=== PATIENT | male | born 1955 ===

== ENCOUNTER 2016-08-22 09:09 | Emergency (ER) | payer MEDICARE ==
[2016-03-04 10:45] VITALS: BMI 32.8
[2016-08-23 08:40] LABS: VENOUS BLOOD GAS BASE EXCESS -0.9 mmol/L (0.0-2.0); VENOUS BLOOD GAS PCO2 44 mmHg (40-60); VENOUS BLOOD PH 7.36 (7.32-7.43)
[2016-08-23 09:16] LABS: BLOOD UREA NITROGEN 18 mg/dl (9-20); CALCIUM 9.1 mg/dL (8.4-10.2); CARBON DIOXIDE 21 mmol/L (22-30); CHLORIDE 105 mmol/L (98-107); GFR AFRICAN-AMERICAN > 60; GLUCOSE,RANDOM 87 mg/dL (75-110); SODIUM 136 mmol/l (132-148)
[2016-08-23 09:17] LABS: POTASSIUM 4.5 MMOL/L (3.6-5.0)
[2016-08-23 14:43] LABS: BASO # 0.1 K/uL (0.0-0.2); BASO % 0.9 % (0.0-2.0); EOS # 0.3 K/uL (0.0-0.7); EOS % 2.5 % (0.0-4.0); HEMATOCRIT 40.9 % (35.0-51.0); LYMPH % 16.2 % (20.0-40.0); MEAN CELL VOLUME 90.1 fl (80.0-94.0); MEAN CORPUSCULAR HEMOGLOBIN 30.6 pg (27.0-31.0); MEAN CORPUSCULAR HGB CONC 33.9 g/dL (33.0-37.0); MONO % 8.3 % (0.0-10.0); NEUT # 8.9 K/uL (1.8-7.0); NEUT % 72.1 % (50.0-75.0); RED CELL DISTRIBUTION WIDTH 13.5 % (11.5-14.5); WHITE BLOOD COUNT 12.3 K/uL (4.8-10.8)
== END 2016-08-22 12:54 | disposition home or self-care (01) ==
LOC: H.ER 09:09 → H.EDERROR 09:09
DX: L03.116 Cellulitis of left lower limb (principal)

== ENCOUNTER 2016-12-04 10:53 | Day surgery (SDC) | payer MEDICARE ==
[2016-12-04 11:18] VITALS: BMI 32.8
[2016-12-04 12:07] VITALS: O2SAT 100
--- NOTE | 2016-12-04 12:08 | CP.SDSHP ---
Same Day Surgery H & P - History Proposed Procedure: Single lumen picc placement Pre-Op Diagnosis: Infection - Allergies Allergies: Allergies No Known Allergies Allergy (Verified 12/04/16 11:18) - Physical Exam Vital Signs: Vital Signs 12/04/16 11:22 Temperature 98.2 F Pulse Rate 75 Respiratory 20 Rate Blood Pressure 140/74 O2 Sat by Pulse 98 Oximetry - Impression Impression: Pt with infection referred for picc. Plan single lumen picc placement. Pt. Evaluated Today:Candidate for Anesthesia & Procedure: No Short Stay Discharge - Short Stay Discharge Admitting Diagnosis/Reason for Visit: E11.621/I70.202 CELLULITIS Disposition: REHAB FACILITY/REHAB UNIT Referrals: Jacek Colón DPM [Primary Care Provider] -
--- NOTE | 2016-12-04 12:09 | PCM.SURG1 ---
Surgeon's Initial Post Op Note - Surgeon's Notes Surgeon: Jackson Lopez MD Knitter Hand: NONE Type of Anesthesia: Local Pre-Operative Diagnosis: Infection Operative Findings: Patent right basilic vein Post-Operative Diagnosis: Infection Operation Performed: Single lumen picc placement right basilic vein, 36 cm. Tip in the SVC. Specimen/Specimens Removed: None Estimated Blood Loss: EBL {In ML}: 2 Blood Products Given: N/A Drains Used: No Drains Post-Op Condition: Good Date of Surgery/Procedure: 12/04/16 Time of Surgery/Procedure: 12:05
[2016-12-04 12:35] VITALS: BP 139/69; PULSE 67; RESP 20; TEMP 98
--- NOTE | 2016-12-06 12:01 | VASCULAR ---
PROCEDURE: Date of procedure: 12/04/2016 Procedure: 1. Placement of a right arm PICC with ultrasound and fluoroscopic guidance, CPT 24115 2. PICC tip confirmation with spot radiograph and is in the superior vena cava Medications: 1 percent lidocaine Total Fluoro time: 1.8 seconds Radiation: 0.29 MGy EBL: 2 cc HISTORY: Infection requiring long-term IV antibiotics TECHNIQUE: Following informed consent and procedure time-out, the patient was placed supine on the interventional table and the right arm prepped and draped in the usual sterile fashion. Ultrasound showed a patent and compressible right basilic vein. After the skin was anesthetized with lidocaine, the basilic vein was accessed with micro micropuncture technique using ultrasound guidance. A guidewire was then advanced under fluoroscopic guidance into the superior vena cava. An image documenting ultrasound guidance for vascular access was permanently saved. The length of the single-lumen 4 Czech PICC was trimmed to 36 centimeters and advanced through a peel-away sheath. The PICC was position with tip of PICC confirm a spot radiograph the superior vena cava. The PICC was secured to the patient's skin. The PICC was flushed. A biopatch and sterile dressing was applied. IMPRESSION: Placement of a single-lumen 4 Czech PICC trimmed to 36 centimeters via right basilic vein. The tip of the PICC is confirmed with spot radiograph and is in the superior vena cava.
== END 2016-12-04 14:00 ==
LOC: H.OPSURG 10:53
PROVIDERS: ATTEND Podiatrist Foot & Ankle Surgery
DX: E11.628 Type 2 diabetes mellitus with other skin complications (principal)
CPT/HCPCS: 36569; 76937; 96365; A4310; C1751; J0696

== ENCOUNTER 2017-02-03 14:05 | Emergency (ER) | payer MEDICARE ==
[2017-02-03 14:05] VITALS: BMI 32.1
[2017-02-03 15:07] LABS: BASO # 0.2 K/uL (0.0-0.2); BASO % 1.1 % (0.0-2.0); EOS # 0.1 K/uL (0.0-0.7); EOS % 0.7 % (0.0-4.0); HEMATOCRIT 37.2 % (35.0-51.0); LYMPH # 1.4 K/uL (1.0-4.3); LYMPH % 10.3 % (20.0-40.0); MEAN CELL VOLUME 87.2 fl (80.0-94.0); MEAN CORPUSCULAR HEMOGLOBIN 28.5 pg (27.0-31.0); MEAN CORPUSCULAR HGB CONC 32.7 g/dL (33.0-37.0); MEAN PLATELET VOLUME 8.3 fl (7.2-11.7); MONO # 0.9 K/uL (0.0-0.8); MONO % 6.8 % (0.0-10.0); NEUT # 11.2 K/uL (1.8-7.0); NEUT % 81.1 % (50.0-75.0); RED CELL DISTRIBUTION WIDTH 14.2 % (11.5-14.5); WHITE BLOOD COUNT 13.9 K/uL (4.8-10.8)
[2017-02-03 15:09] LABS: ALKALINE PHOSPHATASE 140 U/L (38-126); ALT/SGPT 38 U/L (21-72); AST/SGOT 29 U/L (17-59); BILIRUBIN,TOTAL 0.6 mg/dl (0.2-1.3); BLOOD UREA NITROGEN 14 mg/dl (9-20); CALCIUM 8.4 mg/dL (8.4-10.2); CARBON DIOXIDE 22 mmol/L (22-30); CHLORIDE 102 mmol/L (98-107); GFR AFRICAN-AMERICAN > 60; GLUCOSE,RANDOM 201 mg/dL (75-110); POTASSIUM 4.1 MMOL/L (3.6-5.0); SODIUM 133 mmol/l (132-148); TOTAL PROTEIN 7.1 G/DL (6.3-8.2)
--- NOTE | 2017-02-03 15:32 | ED PDOC ---
HPI: General Adult Time Seen by Provider: 02/03/17 14:19 Chief Complaint (Nursing): Flu-like Symptoms Chief Complaint (Provider): Cough, bodyaches History Per: Patient History/Exam Limitations: no limitations Onset/Duration Of Symptoms: Days Have you had recent travel within the past 21 days to any of the following countries: [place], [place], [place] or [place]?: No Current Symptoms Are (Timing): Still Present Additional Complaint(s): 61yo male, history of hypertenstion, COPD, CAD, coronary stents, presents to the ED for evaluation of a "wet" cough, loss of appetite and bodyaches present for the past couple days. He reports associated chills at night as well. He denies any fever. Of note, patient reports he quit smoking 1 week ago. No other medical complaints. Past Medical History Reviewed: Historical Data, Nursing Documentation, Vital Signs Vital Signs: Last Vital Signs Temp 100.2 F H 02/03/17 17:33 Pulse 90 02/03/17 17:33 Resp 19 02/03/17 17:33 BP 143/87 02/03/17 17:33 Pulse Ox 100 02/03/17 17:33 - Medical History PMH: CAD, COPD (per old chart but pt denies), Diabetes, HTN, Hypercholesterolemia, Peripheral Edema Denies: Chronic Kidney Disease - Surgical History Surgical History: Coronary Stent (x6) - Family History Family History: States: Unknown Family Hx, Hypertension - Home Medications Home Medications: Ambulatory Orders Medication Instructions Recorded Insulin Glargine,Hum.rec.anlog 26 unit SC HS 08/16/14 [Lantus] Insulin Lispro Mix 75/25 [HumaLOG 20 units SC ACBL 08/16/14 Mix 75/25] Aspirin [Aspirin Chewable] 81 mg PO DAILY #0 chew 09/05/14 Atorvastatin [Lipitor] 40 mg PO HS #0 tab 09/05/14 Carvedilol [Coreg] 3.125 mg PO Q12 #0 tab 09/05/14 Clopidogrel [Plavix] 75 mg PO DAILY #0 tab 09/05/14 Enalapril Maleate [Vasotec] 5 mg PO DAILY #0 tab 09/05/14 Furosemide [Lasix] 40 mg PO DAILY #0 tab 09/05/14 Pregabalin [Lyrica] 75 mg PO DAILY #0 cap 09/05/14 oxyCODONE/Acetaminophen [Percocet 1 tab PO Q6 PRN #12 tab 02/04/16 5/325 mg Tab] Levofloxacin [Levaquin] 500 mg PO DAILY #7 tablet 02/03/17 - Allergies Allergies/Adverse Reactions: Allergies Allergy/AdvReac Type Severity Reaction Status Date / Time No Known Allergies Allergy Verified 02/03/17 14:14 Review of Systems ROS Statement: Except As Marked, All Systems Reviewed And Found Negative Constitutional: Positive for: Chills, Other (boydaches). Negative for: Fever Respiratory: Positive for: Cough, Sputum Gastrointestinal: Positive for: Other (loss of appetite) Physical Exam - Reviewed Nursing Documentation Reviewed: Yes Vital Signs Reviewed: Yes - Physical Exam Appears: Positive for: Non-toxic, No Acute Distress Head Exam: Positive for: ATRAUMATIC, NORMAL INSPECTION, NORMOCEPHALIC Skin: Positive for: Normal Color Eye Exam: Positive for: Normal appearance Neck: Positive for: Supple Cardiovascular/Chest: Positive for: Regular Rate, Rhythm Respiratory: Positive for: Normal Breath Sounds. Negative for: Respiratory Distress Gastrointestinal/Abdominal: Positive for: Soft. Negative for: Tenderness Neurologic/Psych: Positive for: Alert, Oriented. Negative for: Motor/Sensory Deficits - Laboratory Results Result Diagrams: 02/03/17 14:55 02/03/17 14:55 - ECG O2 Sat by Pulse Oximetry: 98 (RA) Pulse Ox Interpretation: Normal Medical Decision Making Medical Decision Making: Time: 14:25 Impression: Cough, bodyaches Plan: -- EKg -- CMp -- Troponin -- CXR Scribe Attestation: Documented by Kaia Valenzuela, acting as a scribe for Lupe Mercado PA-C Provider Scribe Attestation: All medical record entries made by the Scribe were at my direction and personally dictated by me. I have reviewed the chart and agree that the record accurately reflects my personal performance of the history, physical exam, medical decision making, and the department course for this patient. I have also personally directed, reviewed, and agree with the discharge instructions and disposition. Disposition - Clinical Impression Clinical Impression: Cough - Patient ED Disposition Is Patient to be Admitted: No Counseled Patient/Family Regarding: Diagnosis, Need For Followup - Disposition Disposition: Routine/Home Disposition Time: 17:35 Condition: GOOD Prescriptions: Levofloxacin [Levaquin] 500 mg PO DAILY #7 tablet Instructions: Acute Cough (ED) Forms: [employer] (Bulgarian)
--- NOTE | 2017-02-03 16:26 | RAD ---
HISTORY: cough, body aches COMPARISON: 09/04/2014 TECHNIQUE: Chest PA and lateral FINDINGS: LUNGS: No active pulmonary disease. PLEURA: No significant pleural effusion identified. No pneumothorax apparent. CARDIOVASCULAR: No radiographic findings to suggest acute or significant cardiovascular disease. OSSEOUS STRUCTURES: No significant abnormalities. VISUALIZED UPPER ABDOMEN: Normal. OTHER FINDINGS: None. IMPRESSION: No active disease. No significant interval change compared to the prior examination(s). Please note: No preliminary interpretation of this examination rendered by emergency department personnel (Physician and/or PA declined to provide preliminary report of their findings/ observations).
[2017-02-03 16:47] LABS: URINE BACTERIA RARE (<OCC); URINE BILIRUBIN NEGATIVE (NEGATIVE); URINE BLOOD SMALL (NEGATIVE); URINE COLOR YELLOW (YELLOW); URINE GLUCOSE (UA) >=500 mg/dL (Normal); URINE KETONE NEGATIVE (NEGATIVE); URINE LEUKOCYTE ESTERASE NEG Leu/uL (Negative); URINE PROTEIN >=500 mg/dL (NEGATIVE); URINE UROBILINOGEN 0.2-1.0 mg/dL (0.2-1.0); WBC URINE 1 /hpf (0-5)
[2017-02-03 16:48] LABS: RBC URINE 8 /hpf (0-3)
[2017-02-03 17:34] VITALS: BP 143/87; PULSE 90; RESP 19; TEMP 100.2
[2017-02-03 17:37] VITALS: O2SAT 98
--- NOTE | 2017-02-04 11:06 | CARD ---
APPROVED REPORT EKG Measurement Heart [id number] <Conclusion> Sinus rhythm with premature atrial complexes Possible Left atrial enlargement Left axis deviation Right bundle branch block Inferior infarct, age undetermined-not diagnostic Abnormal ECG
== END 2017-02-03 18:06 | disposition home or self-care (01) ==
LOC: H.ER 14:05
DX: R05 Cough (principal); J44.9 Chronic obstructive pulmonary disease, unspecified; E11.9 Type 2 diabetes mellitus without complications; E78.00 Pure hypercholesterolemia, unspecified; I10 Essential (primary) hypertension; I25.10 Atherosclerotic heart disease of native coronary artery without angina pectoris; I49.1 Atrial premature depolarization; I45.10 Unspecified right bundle-branch block; Z79.4 Long term (current) use of insulin; Z79.82 Long term (current) use of aspirin; Z95.5 Presence of coronary angioplasty implant and graft

== ENCOUNTER 2017-03-22 13:18 | Inpatient (IN) | payer MEDICARE ==
[2017-03-22 13:18] VITALS: BMI 32.1
[2017-03-22 15:20] LABS: BASO # 0.1 K/uL (0.0-0.2); BASO % 0.6 % (0.0-2.0); EOS # 0.2 K/uL (0.0-0.7); EOS % 1.3 % (0.0-4.0); HEMATOCRIT 33.7 % (35.0-51.0); LYMPH % 14.7 % (20.0-40.0); MEAN CELL VOLUME 86.5 fl (80.0-94.0); MEAN CORPUSCULAR HEMOGLOBIN 28.5 pg (27.0-31.0); MEAN CORPUSCULAR HGB CONC 32.9 g/dL (33.0-37.0); MEAN PLATELET VOLUME 8.4 fl (7.2-11.7); MONO # 1.1 K/uL (0.0-0.8); MONO % 7.9 % (0.0-10.0); NEUT # 10.4 K/uL (1.8-7.0); NEUT % 75.5 % (50.0-75.0); RED CELL DISTRIBUTION WIDTH 13.9 % (11.5-14.5); WHITE BLOOD COUNT 13.7 K/uL (4.8-10.8)
[2017-03-22 15:36] LABS: BILIRUBIN,TOTAL 0.4 mg/dl (0.2-1.3); CALCIUM 8.5 mg/dL (8.4-10.2); POTASSIUM 4.6 MMOL/L (3.6-5.0); TOTAL PROTEIN 7.3 G/DL (6.3-8.2)
--- NOTE | 2017-03-22 15:43 | ED PDOC ---
Lower Extremity Pain/Injury Time Seen by Provider: 03/22/17 13:46 Chief Complaint (Nursing): Lower Extremity Problem/Injury Chief Complaint (Provider): Left great toe pain, infection History Per: Patient History/Exam Limitations: no limitations Onset/Duration Of Symptoms: Days Current Symptoms Are (Timing): Still Present Severity: Severe Pain Scale Rating Of: 9 Additional Complaint(s): Pt states that he has bad DM and was seen by Dr. Mckeon yesterday for routine visits and evaluation of his feet. Pt states this morning his left toenail came off with some skin. Pt reports increased pain, bleeding and smelly drainage from under great toe. Past Medical History Reviewed: Historical Data, Nursing Documentation, Vital Signs Vital Signs: Last Vital Signs Temp 98.3 F 03/22/17 13:35 Pulse 74 03/22/17 13:35 Resp 16 03/22/17 13:35 BP 136/65 03/22/17 13:35 Pulse Ox 100 03/22/17 13:35 - Medical History PMH: CAD, COPD (per old chart but pt denies), Diabetes, HTN, Hypercholesterolemia, Peripheral Edema Denies: Chronic Kidney Disease - Surgical History Surgical History: Coronary Stent (x6) - Family History Family History: States: Unknown Family Hx, Hypertension - Living Arrangements Living Arrangements: With Family - Social History Current smoker - smoking cessation education provided: No - Home Medications Home Medications: Ambulatory Orders Medication Instructions Recorded Insulin Glargine,Hum.rec.anlog 26 unit SC HS 08/16/14 [Lantus] Insulin Lispro Mix 75/25 [HumaLOG 20 units SC ACBL 08/16/14 Mix 75/25] Aspirin [Aspirin Chewable] 81 mg PO DAILY #0 chew 09/05/14 Atorvastatin [Lipitor] 40 mg PO HS #0 tab 09/05/14 Carvedilol [Coreg] 3.125 mg PO Q12 #0 tab 09/05/14 Clopidogrel [Plavix] 75 mg PO DAILY #0 tab 09/05/14 Enalapril Maleate [Vasotec] 5 mg PO DAILY #0 tab 09/05/14 Furosemide [Lasix] 40 mg PO DAILY #0 tab 09/05/14 Pregabalin [Lyrica] 75 mg PO DAILY #0 cap 09/05/14 oxyCODONE/Acetaminophen [Percocet 1 tab PO Q6 PRN #12 tab 02/04/16 5/325 mg Tab] Levofloxacin [Levaquin] 500 mg PO DAILY #7 tablet 02/03/17 - Allergies Allergies/Adverse Reactions: Allergies Allergy/AdvReac Type Severity Reaction Status Date / Time No Known Allergies Allergy Verified 02/03/17 14:14 Review of Systems ROS Statement: Except As Marked, All Systems Reviewed And Found Negative Constitutional: Negative for: Fever, Chills Physical Exam - Reviewed Nursing Documentation Reviewed: Yes Vital Signs Reviewed: Yes - Physical Exam Appears: Positive for: Well, Non-toxic, No Acute Distress Head Exam: Positive for: ATRAUMATIC, NORMAL INSPECTION, NORMOCEPHALIC Skin: Positive for: Warm. Negative for: Normal Color ((+) yellow purulant drainage from plantar surface of great toe, sloughed off skin with nail avulasion of distal great toe ) Eye Exam: Positive for: Normal appearance ENT: Positive for: Normal ENT Inspection Neck: Positive for: Normal, Painless ROM Cardiovascular/Chest: Positive for: Regular Rate, Rhythm Respiratory: Positive for: CNT, Normal Breath Sounds Gastrointestinal/Abdominal: Positive for: Normal Exam, Bowel Sounds, Soft Back: Positive for: Normal Inspection Extremity: Positive for: Normal ROM Neurologic/Psych: Positive for: Alert, Oriented - Laboratory Results Result Diagrams: 03/22/17 14:56 03/22/17 14:56 - ECG O2 Sat by Pulse Oximetry: 100 Medical Decision Making Medical Decision Making: Elevated WBC. Osteomyolitis on foot x-ray Disposition - Clinical Impression Clinical Impression: Osteomyelitis - Patient ED Disposition Is Patient to be Admitted: Yes - Disposition Disposition Time: 16:27 Condition: STABLE - Pt Status Changed To: Hospital Disposition Of: Inpatient - Admit Certification Admit to Inpatient:: After my assessment, the patient will require hospitalization for at least two midnights. This is because of the severity of symptoms shown, intensity of services needed, and/or the medical risk in this patient being treated as an outpatient. - POA Present On Arrival: None
[2017-03-22] MEDS ORDERED: Sodium Chloride 0.9% 1,000 ML IV STA (16:15)
--- NOTE | 2017-03-22 16:30 | CP.PCM.CON ---
History of Present Illness - History of Present Illness History of Present Illness: Podiatry Consult for Dr. Matthew- 61 y.o male with PMHx of DM, HTN, hypercholesteremia, heart disease presents to the left hallux ulceration. Patient reports swollen, odorous, pale white toe that has been on going for about 9 months now and getting progressively worse. Patient reports 9/10 pain to the left hallux and left lower extremity. He describes the pain as a constant stabbing pain. He reports that yesterday he hit his big toe against the tube which caused him to lose his toe nail He also states that it made his toe red and not pale colored as it normally is. Patient denies n/v/sob/cp/chills/f or d. PMH: DM, HTN, hypercholesteremia, heart disease, 2 heart attacks PSH: multiple stents placement SH: denies drinking alcohol or ilicit drug use; smokes 1 pack a day for 30 years FH: father-DM, from sepsis ALL: NKDA MEDS: see medication list Past Patient History - Infectious Disease Hx of Infectious Diseases: None - Tetanus Immunizations Tetanus Immunization: Unknown - Past Medical History & Family History Past Medical History?: Yes - Past Social History Smoking Status: Light Smoker < 10 Cigarettes Daily - CARDIAC Hx Hypercholesterolemia: Yes Hx Hypertension: Yes Hx Peripheral Edema: Yes - PULMONARY Hx Chronic Obstructive Pulmonary Disease (COPD): Yes (per old chart but pt denies) - NEUROLOGICAL Hx Neurological Disorder: No - HEENT Hx HEENT Problems: No - RENAL Hx Chronic Kidney Disease: No - ENDOCRINE/METABOLIC Hx Endocrine Disorders: Yes Hx Diabetes Mellitus Type 2: Yes - HEMATOLOGICAL/ONCOLOGICAL Hx Blood Disorders: No - INTEGUMENTARY Hx Dermatological Problems: Yes (NON HEALING ULCER LEFT FOOT) Hx Cellulitis: Yes - MUSCULOSKELETAL/RHEUMATOLOGICAL Hx Musculoskeletal Disorders: No Hx Falls: No - GASTROINTESTINAL Hx Gastrointestinal Disorders: No - GENITOURINARY/GYNECOLOGICAL Hx Genitourinary Disorders: No - PSYCHIATRIC Hx Psychophysiologic Disorder: No Hx Emotional Abuse: No Hx Physical Abuse: No Hx Substance Use: No - SURGICAL HISTORY Hx Coronary Stent: Yes (x6) - ANESTHESIA Hx Anesthesia: Yes Hx Anesthesia Reactions: No Hx Malignant Hyperthermia: No Meds Allergies/Adverse Reactions: Allergies Allergy/AdvReac Type Severity Reaction Status Date / Time No Known Allergies Allergy Verified 02/03/17 14:14 - Medications Medications: Current Medications Sodium Chloride (Sodium Chloride 0.9%) 1,000 mls @ 1,000 mls/hr IV .Q1H STA Stop: 03/22/17 17:14 Mupirocin (Bactroban Ointment) 1 applic TOP BID OFELIA Physical Exam - Constitutional Appears: Well, Non-toxic, No Acute Distress - Extremities Exam Additional comments: Vasc: faintly palpable pulses, temperature cool to cool, left hallux cold to touch, non pitting edema to the left foot Ortho: severe pain with palpation to the hallux, able to wiggle toes, unable to perform MM testing secondary to guarding Neuro: gross and protective sensation diminished Derm: hemorrhagic discoloration noted to the distal hallux to the level of IPJ. Linear ulceration noted to plantar hallux at the IPJ measuring approximately 2 cm x .1 x .5. Ulceration probes to bone, sangious drainaged noted from ulceration, malodorous. No streaking, no increase warmth. - Neurological Exam Neurological exam: Alert, Oriented x3 - Psychiatric Exam Psychiatric exam: Normal Affect, Normal Mood Results - Vital Signs Recent Vital Signs: Last Vital Signs Temp 98.3 F 03/22/17 13:35 Pulse 74 03/22/17 13:35 Resp 16 03/22/17 13:35 BP 136/65 03/22/17 13:35 Pulse Ox 100 03/22/17 15:43 - Labs Result Diagrams: 03/22/17 14:56 03/22/17 14:56 Labs: Laboratory Results - last 24 hr 03/22/17 03/22/17 14:56 14:56 WBC 13.7 H RBC 3.89 L Hgb 11.1 L Hct 33.7 L MCV 86.5 MCH 28.5 MCHC 32.9 L RDW 13.9 Plt Count 342 MPV 8.4 Neut % (Auto) 75.5 H Lymph % (Auto) 14.7 L [place] % (Auto) 7.9 Eos % (Auto) 1.3 Baso % (Auto) 0.6 Neut # 10.4 H Lymph # 2.0 [place] # 1.1 H Eos # 0.2 Baso # 0.1 Sodium 129 L Potassium 4.6 Chloride 96 L Carbon Dioxide 24 Anion Gap 14 BUN 41 H Creatinine 1.6 H Est GFR ( Amer) 54 Est GFR (Non-Af Amer) 44 Random Glucose 289 H Calcium 8.5 Total Bilirubin 0.4 AST 20 ALT 35 Alkaline Phosphatase 116 Total Protein 7.3 Albumin 3.7 Globulin 3.7 Albumin/Globulin Ratio 1.0 Assessment & Plan - Assessment and Plan (Free Text) Assessment: 61 y.o male with PMHx of DM, HTN, hypercholesteremia, heart disease with infected left hallux ulceration. Plan: Patient examined and evaluated Charts, labs, vitals reviewed (afebrile, leukocytosis WBC=13.7) Discussed plan in detail with Dr. Matthew X-rays "IMPRESSION: Findings suspicious for gross osteomyelitis affecting the left great toe and 1st metatarsal bone as well as potentially the distal 5th metatarsal bone and multiple digits from 2nd through 5th positions. Follow-up MRI is advised for greater characterization globally." MRI ordered Wound culture taken- pending results Vascular consulted- recommendations appreciated Infectious disease consulted- recommendations appreciated Hallux ulceration cleansed with betadine, and dressed with DSD and kerlix Bactroban ordered for hallux ulceration while in house. Podiatry will continue to follow while one floors Thank you for the consult
[2017-03-22] MEDS ORDERED: Bisacodyl 5mg EC Tab PO PRN (17:01)
--- NOTE | 2017-03-22 17:03 | CP.PCM.HP ---
History of Present Illness - History of Present Illness History of Present Illness: chief complaint foot pain HPI: This is a 61-year-old male with past medical history of chronic foot ulcer , diabetes mellitus, hypertension, CAD with a history of 6 stents, PVD with a total of 10 stents between both lower extremities, presenting to the emergency room for worsening foot pain with his chronic ulcer, the pain is severe, associated with was now likely osteomyelitis and cellulitis. This patient was seen by Dr. Matthew today in the office and was sent to the emergency room. Patient is afebrile,leukocytosis 13.7, hyponatremic sodium 129, BUN 41, creatinine 1.6, baseline creatinine 0.9. Wound cultures and blood cultures are pending, Vanco and Zosyn initiated. x-ray of foot shows osteomyelitis. Cardiology Dr. Burger, podiatry consult Dr. Matthew, infectious disease consult Dr. Roberts. MRI of the foot without contrast per podiatry pending. Review of systems per HPI all other systems reviewed and negative family Past medical and surgical history: chronic foot ulcer, diabetes mellitus, hypertension, CAD with a history of 6 stents, PVD with a total of 10 stents between both lower extremities Family history: Denies Social history: Continues tobacco use approximately one pack per day for 40 years. Denies alcohol or IV drug use Medications as below No known drug allergies Temp Pulse Resp BP Pulse Ox 98.3 F 72 17 120/70 98 03/22/17 13:35 03/22/17 17:39 03/22/17 17:39 03/22/17 17:39 03/22/17 17:39 Physical exam: Constitutional- cooperative, awake, alert. Head- NCAT, PERRL Eye- PERRL, normal accommodation ENT- normal exam, MMM. Neck- normal inspection, supple, no JVD Respiratory- CTAB, no wheezes rales rhonchi Cardiovascular- RRR, +S1, +S2 no MRG GI/Abdominal- normal bowel sounds, soft, no mass, no hsm Skin- warm, dry, left great toe with both cellulitic and necrotic changes. Extremities Exam- normal capillary refill, normal inspection Neurological Exam- alert, stable gait Psych- normal mood, normal affect Most Recent Lab Values WBC 13.7 K/uL (4.8-10.8) H 03/22/17 14:56 RBC 3.89 Mil/uL (4.40-5.90) L 03/22/17 14:56 Hgb 11.1 g/dL (12.0-18.0) L 03/22/17 14:56 Hct 33.7 % (35.0-51.0) L 03/22/17 14:56 MCV 86.5 fl (80.0-94.0) 03/22/17 14:56 MCH 28.5 pg (27.0-31.0) 03/22/17 14:56 MCHC 32.9 g/dL (33.0-37.0) L 03/22/17 14:56 RDW 13.9 % (11.5-14.5) 03/22/17 14:56 Plt Count 342 K/uL (130-400) 03/22/17 14:56 MPV 8.4 fl (7.2-11.7) 03/22/17 14:56 Neut % (Auto) 75.5 % (50.0-75.0) H 03/22/17 14:56 Lymph % (Auto) 14.7 % (20.0-40.0) L 03/22/17 14:56 [place] % (Auto) 7.9 % (0.0-10.0) 03/22/17 14:56 Eos % (Auto) 1.3 % (0.0-4.0) 03/22/17 14:56 Baso % (Auto) 0.6 % (0.0-2.0) 03/22/17 14:56 Neut # 10.4 K/uL (1.8-7.0) H 03/22/17 14:56 Lymph # 2.0 K/uL (1.0-4.3) 03/22/17 14:56 [place] # 1.1 K/uL (0.0-0.8) H 03/22/17 14:56 Eos # 0.2 K/uL (0.0-0.7) 03/22/17 14:56 Baso # 0.1 K/uL (0.0-0.2) 03/22/17 14:56 PT 11.8 Seconds (9.8-13.1) 03/22/17 17:11 INR 1.1 (0.9-1.2) 03/22/17 17:11 APTT 29.7 Seconds (25.6-37.1) 03/22/17 17:11 Sodium 129 mmol/l (132-148) L 03/22/17 14:56 Potassium 4.6 MMOL/L (3.6-5.0) 03/22/17 14:56 Chloride 96 mmol/L (98-107) L 03/22/17 14:56 Carbon Dioxide 24 mmol/L (22-30) 03/22/17 14:56 Anion Gap 14 (10-20) 03/22/17 14:56 BUN 41 mg/dl (9-20) H 03/22/17 14:56 Creatinine 1.6 mg/dl (0.8-1.5) H 03/22/17 14:56 Est GFR ( Amer) 54 03/22/17 14:56 Est GFR (Non-Af Amer) 44 03/22/17 14:56 POC Glucose (mg/dL) 241 mg/dL (65-110) H 03/22/17 17:24 Random Glucose 289 mg/dL (75-110) H 03/22/17 14:56 Calcium 8.5 mg/dL (8.4-10.2) 03/22/17 14:56 Total Bilirubin 0.4 mg/dl (0.2-1.3) 03/22/17 14:56 AST 20 U/L (17-59) 03/22/17 14:56 ALT 35 U/L (21-72) 03/22/17 14:56 Alkaline Phosphatase 116 U/L (38-126) 03/22/17 14:56 Total Protein 7.3 G/DL (6.3-8.2) 03/22/17 14:56 Albumin 3.7 g/dL (3.5-5.0) 03/22/17 14:56 Globulin 3.7 gm/dL (2.2-3.9) 03/22/17 14:56 Albumin/Globulin Ratio 1.0 (1.0-2.1) 03/22/17 14:56 61-year-old male with past medical history of chronic foot ulcer, diabetes mellitus, hypertension, CAD with a history of 6 stents, PVD with a total of 10 stents between both lower extremities, presenting to the emergency room for worsening foot pain with his chronic ulcer, the pain is severe, associated with was now likely osteomyelitis and cellulitis. This patient was seen by Dr. Matthew today in the office and was sent to the emergency room. Patient is afebrile,leukocytosis 13.7, hyponatremic sodium 129, BUN 41, creatinine 1.6, baseline creatinine 0.9. Wound cultures and blood cultures are pending, Vanco and Zosyn initiated. x-ray of foot shows osteomyelitis. Cardiology Dr. Burger, podiatry consult Dr. Matthew, infectious disease consult Dr. Roberts. MRI of the foot without contrast per podiatry pending. Osteomyelitis patient presented with chronic foot ulcer which is now likely osteomyelitis Patient of Dr. Matthew podiatry WBC 13.7, afebrile vancomycin and Zosyn initiated 03/22/[address] Matthew Cardiac consult Dr. Burger Infectious disease consultation Dr. Roberts MRI of foot pending per podiatry blood and wound cultures pending Diabetes mellitus with neuropathy Accu-Cheks and insulin sliding scale continue Lyrica Acute kidney injury Hyponatremia continue normal saline and monitor Hypertension Coronary artery disease Continue aspirin, Plavix, Lipitor, Coreg 3.125 every 12, Lasix 40 daily PVD continue aspirin and Plavix VTE prophylaxis heparin Present on Admission - Present on Admission Any Indicators Present on Admission: No Past Patient History - Infectious Disease Hx of Infectious Diseases: None - Tetanus Immunizations Tetanus Immunization: Unknown - Past Medical History & Family History Past Medical History?: Yes - Past Social History Smoking Status: Light Smoker < 10 Cigarettes Daily - CARDIAC Hx Hypercholesterolemia: Yes Hx Hypertension: Yes Hx Peripheral Edema: Yes - PULMONARY Hx Chronic Obstructive Pulmonary Disease (COPD): Yes (per old chart but pt denies) - NEUROLOGICAL Hx Neurological Disorder: No - HEENT Hx HEENT Problems: No - RENAL Hx Chronic Kidney Disease: No - ENDOCRINE/METABOLIC Hx Endocrine Disorders: Yes Hx Diabetes Mellitus Type 2: Yes - HEMATOLOGICAL/ONCOLOGICAL Hx Blood Disorders: No - INTEGUMENTARY Hx Dermatological Problems: Yes (NON HEALING ULCER LEFT FOOT) Hx Cellulitis: Yes - MUSCULOSKELETAL/RHEUMATOLOGICAL Hx Musculoskeletal Disorders: No Hx Falls: No - GASTROINTESTINAL Hx Gastrointestinal Disorders: No - GENITOURINARY/GYNECOLOGICAL Hx Genitourinary Disorders: No - PSYCHIATRIC Hx Psychophysiologic Disorder: No Hx Emotional Abuse: No Hx Physical Abuse: No Hx Substance Use: No - SURGICAL HISTORY Hx Coronary Stent: Yes (x6) - ANESTHESIA Hx Anesthesia: Yes Hx Anesthesia Reactions: No Hx Malignant Hyperthermia: No Meds Allergies/Adverse Reactions: Allergies Allergy/AdvReac Type Severity Reaction Status Date / Time No Known Allergies Allergy Verified 02/03/17 14:14 Results - Vital Signs Recent Vital Signs: Last Vital Signs Temp 98.3 F 03/22/17 13:35 Pulse 74 03/22/17 13:35 Resp 16 03/22/17 13:35 BP 136/65 03/22/17 13:35 Pulse Ox 100 03/22/17 15:43 - Labs Result Diagrams: 03/22/17 14:56 03/22/17 14:56 Labs: Laboratory Results - last 24 hr 03/22/17 03/22/17 14:56 14:56 WBC 13.7 H RBC 3.89 L Hgb 11.1 L Hct 33.7 L MCV 86.5 MCH 28.5 MCHC 32.9 L RDW 13.9 Plt Count 342 MPV 8.4 Neut % (Auto) 75.5 H Lymph % (Auto) 14.7 L [place] % (Auto) 7.9 Eos % (Auto) 1.3 Baso % (Auto) 0.6 Neut # 10.4 H Lymph # 2.0 [place] # 1.1 H Eos # 0.2 Baso # 0.1 Sodium 129 L Potassium 4.6 Chloride 96 L Carbon Dioxide 24 Anion Gap 14 BUN 41 H Creatinine 1.6 H Est GFR ( Amer) 54 Est GFR (Non-Af Amer) 44 Random Glucose 289 H Calcium 8.5 Total Bilirubin 0.4 AST 20 ALT 35 Alkaline Phosphatase 116 Total Protein 7.3 Albumin 3.7 Globulin 3.7 Albumin/Globulin Ratio 1.0
[2017-03-22 17:23] LABS: PARTIAL THROMBOPLASTIN TIME 29.7 Seconds (25.6-37.1)
[2017-03-22] MEDS: Sodium Chloride 0.9% 1,000 ML IV SCH (17:29)
[2017-03-22] MEDS ORDERED: Insulin Regular 100 units/ml SC ONE (18:10)
[2017-03-22 18:16] LABS: VENOUS BLOOD GAS BASE EXCESS 0.7 mmol/L (0.0-2.0); VENOUS BLOOD GAS PCO2 52 mmHg (40-60); VENOUS BLOOD PH 7.33 (7.32-7.43)
--- NOTE | 2017-03-22 18:27 | RAD ---
PROCEDURE: Left Foot Radiographs. HISTORY: great toe infection COMPARISON: None. FINDINGS: BONES: Destructive lesions create lucencies surrounding the 1st metatarsophalangeal joint as compared prior left foot radiographs dated 09/14/2016. In addition, destructive lucency affects the 1st digit distal phalanx with a tiny lucency at the proximal phalangeal cortex related to the interphalangeal joint as well. Given these findings, pattern is suspicious for osteomyelitis. Prominent soft tissue edema seen throughout the great toe as well as the majority digits of the left foot as well. Follow-up MRI is advised to evaluate potential lucencies in the 2nd through 5th digits in the 5th metatarsal bone distally. JOINTS: Degenerative osteoarthritis is seen throughout the left foot comprised primarily of cortical sclerosis throughout the articular surfaces diffusely. No subluxation or dislocation. SOFT TISSUES: As above. No emphysema soft tissue changes noted. OTHER FINDINGS: None. IMPRESSION: Findings suspicious for gross osteomyelitis affecting the left great toe and 1st metatarsal bone as well as potentially the distal 5th metatarsal bone and multiple digits from 2nd through 5th positions. Follow-up MRI is advised for greater characterization globally.
[2017-03-22] MEDS: Piperacillin/Tazobact 3.375 GM in Sodium Chloride 0.9% 100 ML IVPB SCH (19:45)
[2017-03-22] MEDS: Insulin Lispro (humaLOG) 100 Units/ml Inj SC SCH (22:17)
[2017-03-22] MEDS: Oxycodone/Acetaminophen 5/325 mg Tab PO PRN (23:16)
[2017-03-23] MEDS ORDERED: Oxycodone/Acetaminophen 5/325 mg Tab PO ONE (00:38)
[2017-03-23] MEDS: Piperacillin/Tazobact 3.375 GM in Sodium Chloride 0.9% 100 ML IVPB SCH ×3 (01:13→17:18)
[2017-03-23] MEDS: Ammonium Lactate 12% Cream (140 g) TOP SCH ×3 (01:14→17:07)
[2017-03-23] MEDS: Sodium Chloride 0.9% 1,000 ML IV SCH (03:15)
[2017-03-23 07:23] LABS: BASO # 0.1 K/uL (0.0-0.2); BASO % 0.8 % (0.0-2.0); EOS # 0.4 K/uL (0.0-0.7); EOS % 3.6 % (0.0-4.0); HEMATOCRIT 34.6 % (35.0-51.0); LYMPH # 2.1 K/uL (1.0-4.3); LYMPH % 17.8 % (20.0-40.0); MEAN CELL VOLUME 86.4 fl (80.0-94.0); MEAN CORPUSCULAR HEMOGLOBIN 28.5 pg (27.0-31.0); MEAN PLATELET VOLUME 8.2 fl (7.2-11.7); MONO % 8.3 % (0.0-10.0); NEUT # 8.2 K/uL (1.8-7.0); NEUT % 69.5 % (50.0-75.0); RED CELL DISTRIBUTION WIDTH 14.1 % (11.5-14.5); WHITE BLOOD COUNT 11.8 K/uL (4.8-10.8)
[2017-03-23] MEDS: Insulin Lispro (humaLOG) 100 Units/ml Inj SC SCH ×4 (07:30→22:53)
[2017-03-23 07:49] LABS: CALCIUM 8.6 mg/dL (8.4-10.2); POTASSIUM 4.2 MMOL/L (3.6-5.0)
--- NOTE | 2017-03-23 13:13 | CP.PCM.CON ---
History of Present Illness - History of Present Illness History of Present Illness: 61 y.o male presents with left hallux ulceration. Patient reports swollen, odorous, pale toe that has been on going for about 9 months now and getting progressively worse. Patient reports 9/10 pain to the left hallux and left lower extremity. He describes the pain as a constant stabbing pain. Had vascular procedure recently admitted to r/o PMH: DM, HTN, hypercholesteremia, heart disease, 2 heart attacks PSH: multiple stents placement SH: denies drinking alcohol or ilicit drug use; smokes 1 pack a day for 30 years FH: father-DM, from sepsis ALL: NKDA MEDS: see medication list Review of Systems - Constitutional Constitutional: As Per HPI - EENT Eyes: absent: As Per HPI, Blind Spots, Blurred Vision, Change in Vision, Decreased Night Vision, Diplopia, Discharge, Dry Eye, Exophthalmos, Floaters, Irritation, Itchy Eyes, Loss of Peripheral Vision, Pain, Photophobia, Requires Corrective Lenses, Sees Flashes, Spots in Vision, Tunnel Vision, Other Visual Disturbances, Loss of Vision, Other Ears: absent: As Per HPI, Decreased Hearing, Ear Discharge, Ear Pain, Tinnitus, Abnormal Hearing, Disequilibrium, Dizziness, Other Nose/Mouth/Throat: absent: As Per HPI, Epistaxis, Nasal Congestion, Nasal Discharge, Nasal Obstruction, Nasal Trauma, Nose Pain, Post Nasal Drip, Sinus Pain, Sinus Pressure, Bleeding Gums, Change in Voice, Dental Pain, Dry Mouth, Dysphagia, Halitosis, Hoarsness, Lip Swelling, Mouth Lesions, Mouth Pain, Odynophagia, Sore Throat, Throat Swelling, Tongue Swelling, Facial Pain, Neck Pain, Neck Mass, Other - Cardiovascular Cardiovascular: As Per HPI - Respiratory Respiratory: absent: As Per HPI, Cough, Dyspnea, Hemoptysis, Dyspnea on Exertion , Wheezing, Snoring, Stridor, Pain on Inspiration, Chest Congestion, Excessive Mucous Production, Change in Mucous Color, Pain with Coughing, Other - Gastrointestinal Gastrointestinal: absent: As Per HPI, Abdominal Pain, Belching, Bloating, Change in Bowel Habits, Change in Stool Character, Coffee Ground Emesis, Constipation, Cramping, Diarrhea, Dyspepsia, Dysphagia, Early Satiety, Excessive Flatus, Fecal Incontinence, Heartburn, Hematemesis, Hematochezia, Loose Stools, Melena, Nausea, Odynophagia, Temesmus, Vomiting, Other - Genitourinary Genitourinary: absent: As Per HPI, Change in Urinary Stream, Difficulty Urinating, Dysuria, Flank Pain, Hematuria, Pyuria, Nocturia, Urinary Incontinence, Urinary Frequency, Urinary Hesitance, Urinary Urgency, Voiding Freq/Small Amts, Freq UTI, Hx Renal/Bladder Calculi, Hx /Renal Surgery, Bladder Distension, Other - Musculoskeletal Musculoskeletal: As Per HPI - Integumentary Integumentary: As Per HPI, Skin Pain, Wounds - Neurological Neurological: As Per HPI - Psychiatric Psychiatric: absent: As Per HPI, Abnormal Sleep Pattern, Anhedonia, Anxiety, Auditory Hallucinations, Behavioral Changes, Change in Appetite, Change in Libido, Confusion, Depression, Difficulty Concentrating, Hallucinations, Homicidal Ideation, Hopelessness, Irritability, Memory Loss, Mood Swings, Panic Attacks, Paranoia, Suicidal Ideation, Visual Hallucinations, Tactile Hallucinations, Other - Endocrine Endocrine: absent: As Per HPI, Change in Body Appearance, Change in Libido, Cold Intolorance, Deepening of Voice, Excessive Sweating, Fatigue, Flushing, Heat Intolorance, Increase in Ring/Shoe/Hat Size, Palpitations, Polydipsia, Polyphagia, Polyuria, Other - Hematologic/Lymphatic Hematologic: absent: As Per HPI, Easy Bleeding, Easy Bruising, Lymphadenopathy, Other Past Patient History - Infectious Disease Hx of Infectious Diseases: None - Tetanus Immunizations Tetanus Immunization: Unknown - Past Medical History & Family History Past Medical History?: Yes - Past Social History Smoking Status: Light Smoker < 10 Cigarettes Daily - CARDIAC Hx Hypercholesterolemia: Yes Hx Hypertension: Yes Hx Peripheral Edema: Yes - PULMONARY Hx Chronic Obstructive Pulmonary Disease (COPD): Yes (per old chart but pt denies) - NEUROLOGICAL Hx Neurological Disorder: No - HEENT Hx HEENT Problems: No - RENAL Hx Chronic Kidney Disease: No - ENDOCRINE/METABOLIC Hx Endocrine Disorders: Yes Hx Diabetes Mellitus Type 2: Yes - HEMATOLOGICAL/ONCOLOGICAL Hx Blood Disorders: No - INTEGUMENTARY Hx Dermatological Problems: Yes (NON HEALING ULCER LEFT FOOT) Hx Cellulitis: Yes - MUSCULOSKELETAL/RHEUMATOLOGICAL Hx Musculoskeletal Disorders: No Hx Falls: No - GASTROINTESTINAL Hx Gastrointestinal Disorders: No - GENITOURINARY/GYNECOLOGICAL Hx Genitourinary Disorders: No - PSYCHIATRIC Hx Psychophysiologic Disorder: No Hx Emotional Abuse: No Hx Physical Abuse: No Hx Substance Use: No - SURGICAL HISTORY Hx Coronary Stent: Yes (x6) - ANESTHESIA Hx Anesthesia: Yes Hx Anesthesia Reactions: No Hx Malignant Hyperthermia: No Meds Allergies/Adverse Reactions: Allergies Allergy/AdvReac Type Severity Reaction Status Date / Time No Known Allergies Allergy Verified 02/03/17 14:14 - Medications Medications: Current Medications Acetaminophen (Tylenol 325mg Tab) 650 mg PO Q6 PRN PRN Reason: Fever >100.4 F Aspirin (Aspirin Chewable) 81 mg PO DAILY [facility] Last Admin: 03/23/17 09:19 Dose: 81 mg Atorvastatin Calcium (Lipitor) 40 mg PO HS [facility] Last Admin: 03/22/17 21:41 Dose: 40 mg Bisacodyl (Dulcolax) 10 mg PO DAILY PRN PRN Reason: Constipation Carvedilol (Coreg) 3.125 mg PO Q12 [facility] Last Admin: 03/23/17 09:18 Dose: 3.125 mg Clopidogrel Bisulfate (Plavix) 75 mg PO DAILY [facility] Last Admin: 03/23/17 09:20 Dose: 75 mg Docusate Sodium (Colace) 100 mg PO BID [facility] Last Admin: 03/23/17 09:19 Dose: 100 mg Enalapril Maleate (Vasotec) 5 mg PO DAILY [facility] Last Admin: 03/23/17 09:18 Dose: 5 mg Furosemide (Lasix) 40 mg PO DAILY [facility] Last Admin: 03/23/17 09:19 Dose: 40 mg Heparin Sodium (Porcine) (Heparin) 5,000 units SC Q8 [facility] PRN Reason: Protocol Last Admin: 03/23/17 09:19 Dose: 5,000 units Sodium Chloride (Sodium Chloride 0.9%) 1,000 mls @ 100 mls/hr IV .Q10H [facility] Last Admin: 03/23/17 03:15 Dose: Not Given Vancomycin HCl 1,000 mg/ (Sodium Chloride) 250 mls @ 250 mls/hr IVPB Q12H [facility] PRN Reason: Protocol Last Admin: 03/23/17 04:58 Dose: 250 mls/hr Piperacillin Sod/Tazobactam (Sod 3.375 gm/ Sodium Chloride) 100 mls @ 100 mls/ hr IVPB Q8 [facility] PRN Reason: Protocol Last Admin: 03/23/17 01:13 Dose: 100 mls/hr Insulin Human Lispro (Humalog) 0 units SC ACHS [facility] PRN Reason: Protocol Last Admin: 03/23/17 07:30 Dose: 3 units Lactic Acid (Lac-Hydrin 12% Cream (140 G)) 1 ea TOP BID [facility] Last Admin: 03/23/17 09:21 Dose: 1 ea Mupirocin (Bactroban Ointment) 1 applic TOP BID [facility] Last Admin: 03/23/17 09:21 Dose: 1 dose Oxycodone/Acetaminophen (Percocet 5/325 Mg Tab) 1 tab PO Q4 PRN PRN Reason: Pain, severe (8-10) Stop: 03/25/17 17:02 Last Admin: 03/22/17 23:16 Dose: 1 tab Pregabalin (Lyrica) 75 mg PO DAILY [facility] Last Admin: 03/23/17 09:25 Dose: 75 mg Physical Exam - Constitutional Appears: Non-toxic, Chronically Ill - Head Exam Head Exam: NORMOCEPHALIC - Eye Exam Eye Exam: PERRL. absent: Scleral icterus - ENT Exam ENT Exam: Mucous Membranes Dry, Normal External Ear Exam, Normal Oropharynx - Neck Exam Neck exam: Negative for: Lymphadenopathy, Thyromegaly - Respiratory Exam Respiratory Exam: Decreased Breath Sounds, Clear to Auscultation Bilateral - Cardiovascular Exam Cardiovascular Exam: REGULAR RHYTHM, +S1, +S2 - GI/Abdominal Exam GI & Abdominal Exam: Diminished Bowel Sounds, Soft. absent: Tenderness - Rectal Exam Rectal Exam: Deferred - Exam Exam: NORMAL INSPECTION - Extremities Exam Extremities exam: Positive for: pedal edema, tenderness. Negative for: calf tenderness, pedal pulses present Additional comments: necrotic left hallux with ulcer at the base - Back Exam Back exam: absent: CVA tenderness (L), CVA tenderness (R) - Neurological Exam Neurological exam: Alert, CN II-XII Intact, Oriented x3, Reflexes Normal - Psychiatric Exam Psychiatric exam: Depressed - Skin Skin Exam: Dry Results - Vital Signs Recent Vital Signs: Last Vital Signs Temp 98.3 F 03/23/17 08:17 Pulse 74 03/23/17 08:17 Resp 20 03/23/17 08:17 BP 128/73 03/23/17 09:19 Pulse Ox 98 03/23/17 08:17 - Labs Result Diagrams: 03/23/17 07:14 03/23/17 07:14 Labs: Laboratory Results - last 24 hr 03/22/17 03/22/17 03/22/17 14:56 14:56 16:56 WBC 13.7 H RBC 3.89 L Hgb 11.1 L Hct 33.7 L MCV 86.5 MCH 28.5 MCHC 32.9 L RDW 13.9 Plt Count 342 MPV 8.4 Neut % (Auto) 75.5 H Lymph % (Auto) 14.7 L [place] % (Auto) 7.9 Eos % (Auto) 1.3 Baso % (Auto) 0.6 Neut # 10.4 H Lymph # 2.0 [place] # 1.1 H Eos # 0.2 Baso # 0.1 PT INR APTT pO2 11 L VBG pH 7.33 VBG pCO2 52 VBG HCO3 23.5 VBG Total CO2 29.0 H VBG O2 Sat (Calc) 16.6 L VBG Base Excess 0.7 VBG Potassium 4.0 Glucose 273 H Lactate 0.6 L FiO2 21.0 Sodium 129 L 130.0 L Potassium 4.6 Chloride 96 L 98.0 Carbon Dioxide 24 Anion Gap 14 BUN 41 H Creatinine 1.6 H Est GFR ( Amer) 54 Est GFR (Non-Af Amer) 44 POC Glucose (mg/dL) Random Glucose 289 H Calcium 8.5 Total Bilirubin 0.4 AST 20 ALT 35 Alkaline Phosphatase 116 Total Protein 7.3 Albumin 3.7 Globulin 3.7 Albumin/Globulin Ratio 1.0 Venous Blood Potassium 4.0 03/22/17 03/22/17 03/22/17 17:11 17:24 21:59 WBC RBC Hgb Hct MCV MCH MCHC RDW Plt Count MPV Neut % (Auto) Lymph % (Auto) [place] % (Auto) Eos % (Auto) Baso % (Auto) Neut # Lymph # [place] # Eos # Baso # PT 11.8 INR 1.1 APTT 29.7 pO2 VBG pH VBG pCO2 VBG HCO3 VBG Total CO2 VBG O2 Sat (Calc) VBG Base Excess VBG Potassium Glucose Lactate FiO2 Sodium Potassium Chloride Carbon Dioxide Anion Gap BUN Creatinine Est GFR ( Amer) Est GFR (Non-Af Amer) POC Glucose (mg/dL) 241 H 285 H Random Glucose Calcium Total Bilirubin AST ALT Alkaline Phosphatase Total Protein Albumin Globulin Albumin/Globulin Ratio Venous Blood Potassium 03/23/17 03/23/17 03/23/17 05:27 07:14 07:14 WBC 11.8 H RBC 4.00 L Hgb 11.4 L Hct 34.6 L MCV 86.4 MCH 28.5 MCHC 33.0 RDW 14.1 Plt Count 354 MPV 8.2 Neut % (Auto) 69.5 Lymph % (Auto) 17.8 L [place] % (Auto) 8.3 Eos % (Auto) 3.6 Baso % (Auto) 0.8 Neut # 8.2 H Lymph # 2.1 [place] # 1.0 H Eos # 0.4 Baso # 0.1 PT INR APTT pO2 VBG pH VBG pCO2 VBG HCO3 VBG Total CO2 VBG O2 Sat (Calc) VBG Base Excess VBG Potassium Glucose Lactate FiO2 Sodium 129 L Potassium 4.2 Chloride 97 L Carbon Dioxide 29 Anion Gap 7 L BUN 39 H Creatinine 1.5 Est GFR ( Amer) 58 Est GFR (Non-Af Amer) 48 POC Glucose (mg/dL) 281 H Random Glucose 321 H Calcium 8.6 Total Bilirubin AST ALT Alkaline Phosphatase Total Protein Albumin Globulin Albumin/Globulin Ratio Venous Blood Potassium 03/23/17 10:43 WBC RBC Hgb Hct MCV MCH MCHC RDW Plt Count MPV Neut % (Auto) Lymph % (Auto) [place] % (Auto) Eos % (Auto) Baso % (Auto) Neut # Lymph # [place] # Eos # Baso # PT INR APTT pO2 VBG pH VBG pCO2 VBG HCO3 VBG Total CO2 VBG O2 Sat (Calc) VBG Base Excess VBG Potassium Glucose Lactate FiO2 Sodium Potassium Chloride Carbon Dioxide Anion Gap BUN Creatinine Est GFR ( Amer) Est GFR (Non-Af Amer) POC Glucose (mg/dL) 285 H Random Glucose Calcium Total Bilirubin AST ALT Alkaline Phosphatase Total Protein Albumin Globulin Albumin/Globulin Ratio Venous Blood Potassium Assessment & Plan (1) Osteomyelitis Status: Acute (2) Cellulitis Status: Acute (3) Chronic foot ulcer Status: Acute Priority: High (4) Diabetes 1.5, managed as type 2 Status: Acute Priority: High (5) Diabetic neuropathy Status: Acute Priority: High (6) Obesity (BMI 30-39.9) Status: Acute (7) PVD (peripheral vascular disease) Status: Acute Priority: High (8) Peripheral arterial disease Status: Acute (9) Pneumonia Status: Acute - Assessment and Plan (Free Text) Assessment: necrotic great toe may need amputation/ ray resection vascular re-eval warrented iv antibiotics ordered
[2017-03-23] MEDS ORDERED: Insulin Lispro Mix 75/25 100 units/ml (HumaLog) 10ml SC SCH (15:15)
--- NOTE | 2017-03-23 15:15 | CP.PCM.PN ---
Subjective - Date & Time of Evaluation Date of Evaluation: 03/23/17 Time of Evaluation: 11:00 - Subjective Subjective: Patient seen and examined bedside. Feeling better. Still with pain to left great toe.Hemodynamically stable, afebrile. No acute issues overnight. Objective - Vital Signs/Intake and Output Vital Signs (last 24 hours): Temp Pulse Resp BP Pulse Ox 98.3 F 74 20 128/73 98 03/23/17 08:17 03/23/17 08:17 03/23/17 08:17 03/23/17 09:19 03/23/17 08:17 - Medications Medications: Current Medications Acetaminophen (Tylenol 325mg Tab) 650 mg PO Q6 PRN PRN Reason: Fever >100.4 F Aspirin (Aspirin Chewable) 81 mg PO DAILY [facility] Last Admin: 03/23/17 09:19 Dose: 81 mg Atorvastatin Calcium (Lipitor) 40 mg PO HS [facility] Last Admin: 03/22/17 21:41 Dose: 40 mg Bisacodyl (Dulcolax) 10 mg PO DAILY PRN PRN Reason: Constipation Carvedilol (Coreg) 3.125 mg PO Q12 [facility] Last Admin: 03/23/17 09:18 Dose: 3.125 mg Clopidogrel Bisulfate (Plavix) 75 mg PO DAILY [facility] Last Admin: 03/23/17 09:20 Dose: 75 mg Docusate Sodium (Colace) 100 mg PO BID [facility] Last Admin: 03/23/17 09:19 Dose: 100 mg Enalapril Maleate (Vasotec) 5 mg PO DAILY [facility] Last Admin: 03/23/17 09:18 Dose: 5 mg Furosemide (Lasix) 40 mg PO DAILY [facility] Last Admin: 03/23/17 09:19 Dose: 40 mg Heparin Sodium (Porcine) (Heparin) 5,000 units SC Q8 [facility] PRN Reason: Protocol Last Admin: 03/23/17 09:19 Dose: 5,000 units Sodium Chloride (Sodium Chloride 0.9%) 1,000 mls @ 100 mls/hr IV .Q10H [facility] Last Admin: 03/23/17 03:15 Dose: Not Given Vancomycin HCl 1,000 mg/ (Sodium Chloride) 250 mls @ 250 mls/hr IVPB Q12H [facility] PRN Reason: Protocol Last Admin: 03/23/17 04:58 Dose: 250 mls/hr Piperacillin Sod/Tazobactam (Sod 3.375 gm/ Sodium Chloride) 100 mls @ 100 mls/ hr IVPB Q8 [facility] PRN Reason: Protocol Last Admin: 03/23/17 10:00 Dose: 100 mls/hr Insulin Detemir (Levemir) 26 units SC HS [facility] Insulin Human Lispro (Humalog) 0 units SC ACHS [facility] PRN Reason: Protocol Last Admin: 03/23/17 14:55 Dose: 3 units Insulin Lispro Protam/Lispro Human (Humalog Mix 75/25) 20 units SC ACBL [facility] Lactic Acid (Lac-Hydrin 12% Cream (140 G)) 1 ea TOP BID [facility] Last Admin: 03/23/17 09:21 Dose: 1 ea Mupirocin (Bactroban Ointment) 1 applic TOP BID [facility] Last Admin: 03/23/17 09:21 Dose: 1 dose Oxycodone/Acetaminophen (Percocet 5/325 Mg Tab) 1 tab PO Q4 PRN PRN Reason: Pain, severe (8-10) Stop: 03/25/17 17:02 Last Admin: 03/22/17 23:16 Dose: 1 tab Pregabalin (Lyrica) 75 mg PO DAILY [facility] Last Admin: 03/23/17 09:25 Dose: 75 mg - Labs Labs: 03/23/17 07:14 03/23/17 07:14 PT 11.8 Seconds (9.8-13.1) 03/22/17 17:11 INR 1.1 (0.9-1.2) 03/22/17 17:11 APTT 29.7 Seconds (25.6-37.1) 03/22/17 17:11 - Constitutional Appears: Non-toxic, No Acute Distress - Head Exam Head Exam: ATRAUMATIC, NORMAL INSPECTION, NORMOCEPHALIC - Eye Exam Eye Exam: EOMI, Normal appearance, PERRL Pupil Exam: NORMAL ACCOMODATION - ENT Exam ENT Exam: Mucous Membranes Moist, Normal Exam - Neck Exam Neck Exam: Full ROM, Normal Inspection - Respiratory Exam Respiratory Exam: Clear to Ausculation Bilateral, NORMAL BREATHING PATTERN. absent: Rales, Rhonchi, Wheezes - Cardiovascular Exam Cardiovascular Exam: REGULAR RHYTHM, RRR, +S1, +S2. absent: JVD - GI/Abdominal Exam GI & Abdominal Exam: Soft, Normal Bowel Sounds. absent: Distended, Guarding, Tenderness, Rebound - Rectal Exam Rectal Exam: Deferred - Extremities Exam Extremities Exam: Full ROM. absent: Pedal Edema Additional comments: left great toe distal portion necrotic - Neurological Exam Neurological Exam: Alert, Awake, CN II-XII Intact - Psychiatric Exam Psychiatric exam: Normal Affect, Normal Mood - Skin Skin Exam: Dry, Warm Assessment and Plan - Assessment and Plan (Free Text) Assessment: 61-year-old male with past medical history of chronic foot ulcer, diabetes mellitus, hypertension, CAD with a history of 6 stents, PVD with a total of 10 stents between both lower extremities, presenting to the emergency room for worsening foot pain with his chronic ulcer, the pain is severe.Patient was seen by Dr. Matthew in the office and was sent to the emergency room. Patient is afebrile,leukocytosis 13.7, hyponatremic sodium 129, BUN 41, creatinine 1.6, baseline creatinine 0.9. Wound cultures and blood cultures are pending, Vanco and Zosyn initiated. x-ray of foot shows suspected osteomyelitis. Cardiology Dr. Burger, podiatry consult Dr. Matthew, infectious disease consult Dr. Roberts. MRI of the foot without contrast per podiatry pending. 1. Suspected left hallux Osteomyelitis Xray showed ;suspicious gross osteomyelitis affecting the left great toe and 1st metatarsal bone as well as potentially the distal 5th metatarsal bone and multiple digits from 2nd through 5th positions podiatry ,ID and cardiology consulted WBC 11.8 afebrile continue vancomycin and Zosyn initiated 03/22/17 follow up MRI of the foot Follow up cultures 2. Diabetes mellitus with neuropathy uncontrolled Accu-Cheks and insulin sliding scale continue Lyrica resume levemir 26 units SQ HS and humalog AC breakfast 3.Acute kidney injury continue normal saline and monitor Cr improving from 1.6--1.5 4.Hypertension controlled continue home meds 5.Coronary artery disease history of [address] Burger, consulted for possible preop clearance Continue aspirin, Plavix, Lipitor, Coreg 3.125 every 12, Lasix 40 daily 6. Hyponatremia Most likely volume depletion continue IVF 7.PVD continue aspirin and Plavix 8.VTE prophylaxis heparin
--- NOTE | 2017-03-23 17:35 | CARD ---
APPROVED REPORT EKG Measurement Heart [id number] <Conclusion> Normal sinus rhythm Left axis deviation Right bundle branch block Inferior infarct, age undetermined Abnormal ECG
--- NOTE | 2017-03-23 21:39 | CP.PCM.PN ---
Subjective - Date & Time of Evaluation Date of Evaluation: 03/23/17 Time of Evaluation: 21:37 - Subjective Subjective: Podiatry Progress Note for Dr. Matthew- 61 y.o male with PMHx of DM, HTN, hypercholesteremia, CAD seen at bedside for left hallux ulceration. Patient is seen laying comfortably in bed, in NAD, and AAOx3. Patient denies acute overnight events. Patient reports that he is feeling better today but reports he is still experiencing painful stabbing pain to the L big toe. Patient denies n/v/sob/cp/chills/f or d Objective - Vital Signs/Intake and Output Vital Signs (last 24 hours): Temp Pulse Resp BP Pulse Ox 98.2 F 65 20 158/83 H 99 03/23/17 16:04 03/23/17 16:04 03/23/17 16:04 03/23/17 16:04 03/23/17 16:04 - Medications Medications: Current Medications Acetaminophen (Tylenol 325mg Tab) 650 mg PO Q6 PRN PRN Reason: Fever >100.4 F Aspirin (Aspirin Chewable) 81 mg PO DAILY [facility] Last Admin: 03/23/17 09:19 Dose: 81 mg Atorvastatin Calcium (Lipitor) 40 mg PO HS [facility] Last Admin: 03/22/17 21:41 Dose: 40 mg Bisacodyl (Dulcolax) 10 mg PO DAILY PRN PRN Reason: Constipation Carvedilol (Coreg) 3.125 mg PO Q12 [facility] Last Admin: 03/23/17 09:18 Dose: 3.125 mg Clopidogrel Bisulfate (Plavix) 75 mg PO DAILY [facility] Last Admin: 03/23/17 09:20 Dose: 75 mg Docusate Sodium (Colace) 100 mg PO BID [facility] Last Admin: 03/23/17 17:07 Dose: 100 mg Enalapril Maleate (Vasotec) 5 mg PO DAILY [facility] Last Admin: 03/23/17 09:18 Dose: 5 mg Furosemide (Lasix) 40 mg PO DAILY [facility] Last Admin: 03/23/17 09:19 Dose: 40 mg Heparin Sodium (Porcine) (Heparin) 5,000 units SC Q8 [facility] PRN Reason: Protocol Last Admin: 03/23/17 17:08 Dose: 5,000 units Sodium Chloride (Sodium Chloride 0.9%) 1,000 mls @ 100 mls/hr IV .Q10H [facility] Last Admin: 03/23/17 03:15 Dose: Not Given Vancomycin HCl 1,000 mg/ (Sodium Chloride) 250 mls @ 250 mls/hr IVPB Q12H [facility] PRN Reason: Protocol Last Admin: 03/23/17 17:12 Dose: 250 mls/hr Piperacillin Sod/Tazobactam (Sod 3.375 gm/ Sodium Chloride) 100 mls @ 100 mls/ hr IVPB Q8 [facility] PRN Reason: Protocol Last Admin: 03/23/17 17:18 Dose: 100 mls/hr Insulin Detemir (Levemir) 26 units SC HS [facility] Insulin Human Lispro (Humalog) 0 units SC ACHS [facility] PRN Reason: Protocol Last Admin: 03/23/17 17:08 Dose: 4 units Insulin Lispro Protam/Lispro Human (Humalog Mix 75/25) 20 units SC ACB [facility] Lactic Acid (Lac-Hydrin 12% Cream (140 G)) 1 ea TOP BID [facility] Last Admin: 03/23/17 17:07 Dose: 1 ea Mupirocin (Bactroban Ointment) 1 applic TOP BID [facility] Last Admin: 03/23/17 17:07 Dose: 1 dose Oxycodone/Acetaminophen (Percocet 5/325 Mg Tab) 1 tab PO Q4 PRN PRN Reason: Pain, severe (8-10) Stop: 03/25/17 17:02 Last Admin: 03/22/17 23:16 Dose: 1 tab Pregabalin (Lyrica) 75 mg PO DAILY [facility] Last Admin: 03/23/17 09:25 Dose: 75 mg - Labs Labs: 03/23/17 07:14 03/23/17 07:14 PT 11.8 Seconds (9.8-13.1) 03/22/17 17:11 INR 1.1 (0.9-1.2) 03/22/17 17:11 APTT 29.7 Seconds (25.6-37.1) 03/22/17 17:11 - Constitutional Appears: Well, Non-toxic, No Acute Distress - Extremities Exam Extremities Exam: absent: Calf Tenderness Additional comments: Vasc: faintly palpable pulses, temperature warm to cool, left hallux cold to touch, non pitting edema to the left foot Ortho: severe pain with palpation to the hallux, able to wiggle toes, unable to perform MM testing secondary to guarding Neuro: gross and protective sensation diminished Derm: hemorrhagic discoloration/ischemic changes noted to the distal hallux. Linear ulceration noted to plantar hallux at the IPJ measuring approximately 2 cm x .1 x .5. Ulceration probes to bone, sangious drainaged noted from ulceration, malodorous. No streaking, no increase warmth. - Neurological Exam Neurological Exam: Alert, Awake, Oriented x3 - Psychiatric Exam Psychiatric exam: Normal Affect, Normal Mood Assessment and Plan - Assessment and Plan (Free Text) Assessment: 61 y.o male with PMHx of DM, HTN, hypercholesteremia, CAD with infected left hallux ulceration with ischemic changes possible secondary to arterial vs frostbite. Plan: Patient examined and evaluated Charts, labs, vitals reviewed (afebrile, leukocytosis WBC=11.8) Discussed plan in detail with Dr. Matthew X-rays "IMPRESSION: Findings suspicious for gross osteomyelitis affecting the left great toe and 1st metatarsal bone as well as potentially the distal 5th metatarsal bone and multiple digits from 2nd through 5th positions. Follow-up MRI is advised for greater characterization globally." MRI ordered- pending results Wound culture taken- pending results Vascular consulted- recommendations appreciated Infectious disease consulted- recommendations appreciated Hallux ulceration cleansed with betadine and dressed with Bactroban, dsd, rich. Ordered Lac-Hydrin to be applied to leg, avoid foot. Podiatry will continue to follow while in house
[2017-03-23] MEDS: Oxycodone/Acetaminophen 5/325 mg Tab PO PRN (22:47)
[2017-03-23] MEDS: Insulin Detemir 100 Units/ml Inj SC SCH (22:52)
[2017-03-24] MEDS: Piperacillin/Tazobact 3.375 GM in Sodium Chloride 0.9% 100 ML IVPB SCH ×3 (01:13→17:05)
[2017-03-24] MEDS: Oxycodone/Acetaminophen 5/325 mg Tab PO PRN ×3 (03:06→21:28)
[2017-03-24] MEDS: Sodium Chloride 0.9% 1,000 ML IV SCH (04:45)
[2017-03-24 06:21] LABS: HEMATOCRIT 30.4 % (35.0-51.0); MEAN CELL VOLUME 84.5 fl (80.0-94.0); MEAN CORPUSCULAR HEMOGLOBIN 29.2 pg (27.0-31.0); MEAN CORPUSCULAR HGB CONC 34.6 g/dL (33.0-37.0); WHITE BLOOD COUNT 10.8 K/uL (4.8-10.8)
--- NOTE | 2017-03-24 06:25 | CP.PCM.PN ---
Subjective - Date & Time of Evaluation Date of Evaluation: 03/24/17 Time of Evaluation: 06:25 - Subjective Subjective: Podiatry Progress Note - Dr. Mckeon 61 year old male patient seen and evaluated at bedside for left great toe wound. Patient hemodynamically stable and NAD. Denies any acute events overnight. Reports minimal pain to left great toe, well-controlled; also complains of strong, foul odor from toe. Patient states he is able to ambulate without any issues. Patient is concerned his toe is black in color as he states he received vascular intervention from Dr. Burger recently. Denies N/V/F/D/C/SOB/ calf pain. Objective - Vital Signs/Intake and Output Vital Signs (last 24 hours): Temp Pulse Resp BP Pulse Ox 98.2 F 73 20 150/73 99 03/23/17 22:00 03/23/17 22:57 03/23/17 22:00 03/23/17 22:57 03/23/17 22:00 - Medications Medications: Current Medications Acetaminophen (Tylenol 325mg Tab) 650 mg PO Q6 PRN PRN Reason: Fever >100.4 F Aspirin (Aspirin Chewable) 81 mg PO DAILY [facility] Last Admin: 03/23/17 09:19 Dose: 81 mg Atorvastatin Calcium (Lipitor) 40 mg PO HS [facility] Last Admin: 03/23/17 22:57 Dose: 40 mg Bisacodyl (Dulcolax) 10 mg PO DAILY PRN PRN Reason: Constipation Carvedilol (Coreg) 3.125 mg PO Q12 [facility] Last Admin: 03/23/17 22:57 Dose: 3.125 mg Clopidogrel Bisulfate (Plavix) 75 mg PO DAILY [facility] Last Admin: 03/23/17 09:20 Dose: 75 mg Docusate Sodium (Colace) 100 mg PO BID [facility] Last Admin: 03/23/17 17:07 Dose: 100 mg Enalapril Maleate (Vasotec) 5 mg PO DAILY [facility] Last Admin: 03/23/17 09:18 Dose: 5 mg Furosemide (Lasix) 40 mg PO DAILY [facility] Last Admin: 03/23/17 09:19 Dose: 40 mg Heparin Sodium (Porcine) (Heparin) 5,000 units SC Q8 [facility] PRN Reason: Protocol Last Admin: 03/24/17 01:11 Dose: 5,000 units Sodium Chloride (Sodium Chloride 0.9%) 1,000 mls @ 100 mls/hr IV .Q10H [facility] Last Admin: 03/24/17 04:45 Dose: Not Given Vancomycin HCl 1,000 mg/ (Sodium Chloride) 250 mls @ 250 mls/hr IVPB Q12H [facility] PRN Reason: Protocol Last Admin: 03/24/17 05:45 Dose: 250 mls/hr Piperacillin Sod/Tazobactam (Sod 3.375 gm/ Sodium Chloride) 100 mls @ 100 mls/ hr IVPB Q8 [facility] PRN Reason: Protocol Last Admin: 03/24/17 01:13 Dose: 100 mls/hr Insulin Detemir (Levemir) 26 units SC HS [facility] Last Admin: 03/23/17 22:52 Dose: 26 u Insulin Human Lispro (Humalog) 0 units SC ACHS [facility] PRN Reason: Protocol Last Admin: 03/23/17 22:53 Dose: 2 units Insulin Lispro Protam/Lispro Human (Humalog Mix 75/25) 20 units SC ACB [facility] Lactic Acid (Lac-Hydrin 12% Cream (140 G)) 1 ea TOP BID [facility] Last Admin: 03/23/17 17:07 Dose: 1 ea Mupirocin (Bactroban Ointment) 1 applic TOP BID [facility] Last Admin: 03/23/17 17:07 Dose: 1 dose Oxycodone/Acetaminophen (Percocet 5/325 Mg Tab) 1 tab PO Q4 PRN PRN Reason: Pain, severe (8-10) Stop: 03/25/17 17:02 Last Admin: 03/24/17 03:06 Dose: 1 tab Pregabalin (Lyrica) 75 mg PO DAILY [facility] Last Admin: 03/23/17 09:25 Dose: 75 mg - Labs Labs: 03/24/17 05:25 03/23/17 07:14 PT 11.8 Seconds (9.8-13.1) 03/22/17 17:11 INR 1.1 (0.9-1.2) 03/22/17 17:11 APTT 29.7 Seconds (25.6-37.1) 03/22/17 17:11 - Constitutional Appears: Well, Non-toxic, No Acute Distress - Extremities Exam Additional comments: LLE focused physical exam: VASC: DP and PT pulses non-palpable. Temperature gradient cool to cool with left hallux cold. Non-pitting edema noted to forefoot. NEURO: Gross sensation absent. DERM: Ulceration noted to plantar sulcus of hallux measuring approximately 1.5 x 0.5 x 0.5 cm - ulcer is noted to have a 100% fibrous base with sloughing and macerated rim; (+)probe to bone; serosanguinous drainage noted, malodor present. Absent hallucal nail with sanguinous drainage able to be expressed from medial nail groove. Ischemic/necrotic hallux with demarcation from proximal nail groove extending distally to tip, worsening from previous visit. ORTHO: Mild tenderness on palpation to hallux. Muscle strength 5/5 for all dorsiflexors, plantarflexors, inverters, and everters. - Neurological Exam Neurological Exam: Alert, Awake, Oriented x3 - Psychiatric Exam Psychiatric exam: Normal Affect, Normal Mood Assessment and Plan - Assessment and Plan (Free Text) Assessment: 61M PMHx of DM, HTN, hypercholesteremia, CAD, PVD with infected left hallux ulceration + ischemia secondary to PVD vs frostbite. Plan: Patient seen and evaluated Discussed with attending, Dr. Mckeon afebrile, WBC trending downward @ 10.8 (yesterday 03/23/17 @ 11.8) L foot XR reviewed: Findings suspicious for osteomyelitis affecting the left great toe and 1st metatarsal bone as well as potentially the distal 5th metatarsal bone and multiple digits from 2nd through 5th positions. Follow-up MRI is advised for greater characterization globally. L foot MRI: ordered, awaiting report L foot wound culture: taken, report pending f/u vascular consult Continue abx per ID - Vancomycin, Zosyn L hallux cleansed with normal saline; bactroban applied to ulcer and dressed with DSD LacHydrin bilateral LE prn Podiatry will continue to follow patient while in house
[2017-03-24 06:31] LABS: BLOOD UREA NITROGEN 36 mg/dl (9-20); CALCIUM 8.1 mg/dL (8.4-10.2); CARBON DIOXIDE 25 mmol/L (22-30); CHLORIDE 100 mmol/L (98-107); GFR AFRICAN-AMERICAN > 60; GLUCOSE,RANDOM 325 mg/dL (75-110); POTASSIUM 4.2 MMOL/L (3.6-5.0); SODIUM 131 mmol/l (132-148)
[2017-03-24] MEDS: Insulin Lispro (humaLOG) 100 Units/ml Inj SC SCH ×4 (08:00→21:21)
[2017-03-24] MEDS: Ammonium Lactate 12% Cream (140 g) TOP SCH ×2 (09:41→17:01)
[2017-03-24] MEDS: Insulin Lispro Mix 75/25 100 units/ml (HumaLog) 10ml SC SCH (09:43)
--- NOTE | 2017-03-24 11:28 | CP.PCM.PN ---
Subjective - Date & Time of Evaluation Date of Evaluation: 03/24/17 Time of Evaluation: 08:00 - Subjective Subjective: L foot XR reviewed: Findings suspicious for osteomyelitis affecting the left great toe and 1st metatarsal bone as well as potentially the distal 5th metatarsal bone and multiple digits from 2nd through 5th positions. Follow-up MRI is advised for greater characterization globally. L foot MRI: ordered, awaiting report L foot wound culture: taken, report pending f/u vascular consult Objective - Vital Signs/Intake and Output Vital Signs (last 24 hours): Temp Pulse Resp BP Pulse Ox 98.4 F 63 20 129/75 99 03/24/17 07:34 03/24/17 10:08 03/24/17 07:34 03/24/17 10:08 03/24/17 07:34 - Medications Medications: Current Medications Acetaminophen (Tylenol 325mg Tab) 650 mg PO Q6 PRN PRN Reason: Fever >100.4 F Aspirin (Aspirin Chewable) 81 mg PO DAILY [facility] Last Admin: 03/24/17 09:41 Dose: 81 mg Atorvastatin Calcium (Lipitor) 40 mg PO HS [facility] Last Admin: 03/23/17 22:57 Dose: 40 mg Bisacodyl (Dulcolax) 10 mg PO DAILY PRN PRN Reason: Constipation Carvedilol (Coreg) 3.125 mg PO Q12 [facility] Last Admin: 03/24/17 10:08 Dose: 3.125 mg Clopidogrel Bisulfate (Plavix) 75 mg PO DAILY [facility] Last Admin: 03/24/17 09:49 Dose: 75 mg Docusate Sodium (Colace) 100 mg PO BID [facility] Last Admin: 03/24/17 09:44 Dose: 100 mg Enalapril Maleate (Vasotec) 5 mg PO DAILY [facility] Last Admin: 03/24/17 09:49 Dose: 5 mg Furosemide (Lasix) 40 mg PO DAILY [facility] Last Admin: 03/24/17 09:48 Dose: 40 mg Heparin Sodium (Porcine) (Heparin) 5,000 units SC Q8 [facility] PRN Reason: Protocol Last Admin: 03/24/17 09:43 Dose: 5,000 units Sodium Chloride (Sodium Chloride 0.9%) 1,000 mls @ 100 mls/hr IV .Q10H [facility] Last Admin: 03/24/17 04:45 Dose: Not Given Vancomycin HCl 1,000 mg/ (Sodium Chloride) 250 mls @ 250 mls/hr IVPB Q12H [facility] PRN Reason: Protocol Last Admin: 03/24/17 05:45 Dose: 250 mls/hr Piperacillin Sod/Tazobactam (Sod 3.375 gm/ Sodium Chloride) 100 mls @ 100 mls/ hr IVPB Q8 [facility] PRN Reason: Protocol Last Admin: 03/24/17 09:49 Dose: 100 mls/hr Insulin Detemir (Levemir) 26 units SC HS [facility] Last Admin: 03/23/17 22:52 Dose: 26 u Insulin Human Lispro (Humalog) 0 units SC ACHS [facility] PRN Reason: Protocol Last Admin: 03/24/17 08:00 Dose: 3 units Insulin Lispro Protam/Lispro Human (Humalog Mix 75/25) 20 units SC ACB [facility] Last Admin: 03/24/17 09:43 Dose: 20 units Lactic Acid (Lac-Hydrin 12% Cream (140 G)) 1 ea TOP BID [facility] Last Admin: 03/24/17 09:41 Dose: 1 ea Mupirocin (Bactroban Ointment) 1 applic TOP BID [facility] Last Admin: 03/23/17 17:07 Dose: 1 dose Oxycodone/Acetaminophen (Percocet 5/325 Mg Tab) 1 tab PO Q4 PRN PRN Reason: Pain, severe (8-10) Stop: 03/25/17 17:02 Last Admin: 03/24/17 11:02 Dose: 1 tab Pregabalin (Lyrica) 75 mg PO DAILY [facility] Last Admin: 03/24/17 10:09 Dose: 75 mg - Labs Labs: 03/24/17 05:25 03/24/17 05:25 PT 11.8 Seconds (9.8-13.1) 03/22/17 17:11 INR 1.1 (0.9-1.2) 03/22/17 17:11 APTT 29.7 Seconds (25.6-37.1) 03/22/17 17:11 - Constitutional Appears: Non-toxic, Chronically Ill - Head Exam Head Exam: NORMOCEPHALIC - Eye Exam Eye Exam: PERRL - ENT Exam ENT Exam: Mucous Membranes Dry - Neck Exam Neck Exam: absent: Lymphadenopathy - Respiratory Exam Respiratory Exam: Decreased Breath Sounds - Cardiovascular Exam Cardiovascular Exam: REGULAR RHYTHM - GI/Abdominal Exam GI & Abdominal Exam: Distended - Rectal Exam Rectal Exam: Deferred - Exam Exam: NORMAL INSPECTION - Extremities Exam Extremities Exam: Joint Swelling, Pedal Edema, Tenderness - Back Exam Back Exam: absent: CVA tenderness (L), CVA tenderness (R) - Neurological Exam Neurological Exam: Alert, Awake, Oriented x3 Assessment and Plan (1) Osteomyelitis Status: Acute (2) Cellulitis Status: Acute (3) Chronic foot ulcer Status: Acute (4) Diabetes 1.5, managed as type 2 Status: Acute (5) Diabetic neuropathy Status: Acute (6) Obesity (BMI 30-39.9) Status: Acute (7) PVD (peripheral vascular disease) Status: Acute (8) Peripheral arterial disease Status: Acute (9) Pneumonia Status: Acute - Assessment and Plan (Free Text) Assessment: L foot XR reviewed: Findings suspicious for osteomyelitis affecting the left great toe and 1st metatarsal bone as well as potentially the distal 5th metatarsal bone and multiple digits from 2nd through 5th positions. Follow-up MRI is advised for greater characterization globally. L foot MRI: ordered, awaiting report L foot wound culture: taken, report pending f/u vascular consult
--- NOTE | 2017-03-24 12:57 | CP.PCM.PN ---
Subjective - Date & Time of Evaluation Date of Evaluation: 03/24/17 Time of Evaluation: 14:00 - Subjective Subjective: Patient seen and examined . Hemodynamically stable, afebrile. No acute issues overnight. With pain to his left foot. Objective - Vital Signs/Intake and Output Vital Signs (last 24 hours): Temp Pulse Resp BP Pulse Ox 98.4 F 63 20 129/75 99 03/24/17 07:34 03/24/17 10:08 03/24/17 07:34 03/24/17 10:08 03/24/17 07:34 - Medications Medications: Current Medications Acetaminophen (Tylenol 325mg Tab) 650 mg PO Q6 PRN PRN Reason: Fever >100.4 F Aspirin (Aspirin Chewable) 81 mg PO DAILY [facility] Last Admin: 03/24/17 09:41 Dose: 81 mg Atorvastatin Calcium (Lipitor) 40 mg PO HS [facility] Last Admin: 03/23/17 22:57 Dose: 40 mg Bisacodyl (Dulcolax) 10 mg PO DAILY PRN PRN Reason: Constipation Carvedilol (Coreg) 3.125 mg PO Q12 [facility] Last Admin: 03/24/17 10:08 Dose: 3.125 mg Clopidogrel Bisulfate (Plavix) 75 mg PO DAILY [facility] Last Admin: 03/24/17 09:49 Dose: 75 mg Docusate Sodium (Colace) 100 mg PO BID [facility] Last Admin: 03/24/17 09:44 Dose: 100 mg Enalapril Maleate (Vasotec) 5 mg PO DAILY [facility] Last Admin: 03/24/17 09:49 Dose: 5 mg Furosemide (Lasix) 40 mg PO DAILY [facility] Last Admin: 03/24/17 09:48 Dose: 40 mg Heparin Sodium (Porcine) (Heparin) 5,000 units SC Q8 [facility] PRN Reason: Protocol Last Admin: 03/24/17 09:43 Dose: 5,000 units Sodium Chloride (Sodium Chloride 0.9%) 1,000 mls @ 100 mls/hr IV .Q10H [facility] Last Admin: 03/24/17 04:45 Dose: Not Given Vancomycin HCl 1,000 mg/ (Sodium Chloride) 250 mls @ 250 mls/hr IVPB Q12H [facility] PRN Reason: Protocol Last Admin: 03/24/17 05:45 Dose: 250 mls/hr Piperacillin Sod/Tazobactam (Sod 3.375 gm/ Sodium Chloride) 100 mls @ 100 mls/ hr IVPB Q8 [facility] PRN Reason: Protocol Last Admin: 03/24/17 09:49 Dose: 100 mls/hr Insulin Detemir (Levemir) 26 units SC HS [facility] Last Admin: 03/23/17 22:52 Dose: 26 u Insulin Human Lispro (Humalog) 0 units SC ACHS [facility] PRN Reason: Protocol Last Admin: 03/24/17 08:00 Dose: 3 units Insulin Lispro Protam/Lispro Human (Humalog Mix 75/25) 20 units SC ACB [facility] Last Admin: 03/24/17 09:43 Dose: 20 units Lactic Acid (Lac-Hydrin 12% Cream (140 G)) 1 ea TOP BID [facility] Last Admin: 03/24/17 09:41 Dose: 1 ea Mupirocin (Bactroban Ointment) 1 applic TOP BID [facility] Last Admin: 03/23/17 17:07 Dose: 1 dose Oxycodone/Acetaminophen (Percocet 5/325 Mg Tab) 1 tab PO Q4 PRN PRN Reason: Pain, severe (8-10) Stop: 03/25/17 17:02 Last Admin: 03/24/17 11:02 Dose: 1 tab Pregabalin (Lyrica) 75 mg PO DAILY [facility] Last Admin: 03/24/17 10:09 Dose: 75 mg - Labs Labs: 03/24/17 05:25 03/24/17 05:25 PT 11.8 Seconds (9.8-13.1) 03/22/17 17:11 INR 1.1 (0.9-1.2) 03/22/17 17:11 APTT 29.7 Seconds (25.6-37.1) 03/22/17 17:11 - Constitutional Appears: Non-toxic, No Acute Distress - Head Exam Head Exam: ATRAUMATIC, NORMAL INSPECTION, NORMOCEPHALIC - Eye Exam Eye Exam: EOMI, Normal appearance, PERRL Pupil Exam: NORMAL ACCOMODATION - ENT Exam ENT Exam: Mucous Membranes Moist, Normal Exam - Neck Exam Neck Exam: Full ROM, Normal Inspection - Respiratory Exam Respiratory Exam: Clear to Ausculation Bilateral, NORMAL BREATHING PATTERN. absent: Rales, Rhonchi, Wheezes - Cardiovascular Exam Cardiovascular Exam: REGULAR RHYTHM, RRR, +S1, +S2. absent: JVD - GI/Abdominal Exam GI & Abdominal Exam: Soft, Normal Bowel Sounds. absent: Distended, Guarding, Tenderness, Rebound - Rectal Exam Rectal Exam: Deferred - Extremities Exam Extremities Exam: absent: Calf Tenderness, Pedal Edema Additional comments: left big toe distal aspect necrosis - Back Exam Back Exam: NORMAL INSPECTION - Neurological Exam Neurological Exam: Alert, Awake, CN II-XII Intact - Psychiatric Exam Psychiatric exam: Normal Affect, Normal Mood - Skin Skin Exam: Dry, Pallor, Warm Assessment and Plan - Assessment and Plan (Free Text) Assessment: 61-year-old male with past medical history of chronic foot ulcer, diabetes mellitus, hypertension, CAD with a history of 6 stents, PVD with a total of 10 stents between both lower extremities, presenting to the emergency room for worsening foot pain with his chronic ulcer, the pain is severe.Patient was seen by Dr. Matthew in the office and was sent to the emergency room. Patient is afebrile,leukocytosis 13.7, hyponatremic sodium 129, BUN 41, creatinine 1.6, baseline creatinine 0.9. Wound cultures and blood cultures are pending, Vanco and Zosyn initiated. x-ray of foot shows suspected osteomyelitis. Cardiology Dr. Burger, podiatry consult Dr. Matthew, infectious disease consult Dr. Roberts. MRI of the foot without contrast per podiatry pending. 1. Suspected left hallux Osteomyelitis Xray showed ;suspicious gross osteomyelitis affecting the left great toe and 1st metatarsal bone as well as potentially the distal 5th metatarsal bone and multiple digits from 2nd through 5th positions podiatry ,ID and cardiology consulted WBC 10.6 afebrile continue vancomycin and Zosyn initiated 03/22/17 follow up MRI of the foot Blood cx with no growth. Left foot cx positive for corynovbacter species vascular eval with Dr. Burger 2. Diabetes mellitus with neuropathy uncontrolled Accu-Cheks and insulin sliding scale continue Lyrica resumed levemir 26 units SQ HS and humalog AC breakfast 3.Acute kidney injury continue normal saline and monitor Cr improving from 1.6--1.5 --1.4 4.Hypertension controlled continue home meds 5.Coronary artery disease history of [address] Burger, consulted for possible preop clearance Continue aspirin, Plavix, Lipitor, Coreg 3.125 every 12, Lasix 40 daily 6. Hyponatremia Most likely volume depletion continue IVF Na 131 7.PVD continue aspirin and Plavix 8.VTE prophylaxis heparin
[2017-03-24] MEDS: Insulin Detemir 100 Units/ml Inj SC SCH (21:22)
[2017-03-25] MEDS: Piperacillin/Tazobact 3.375 GM in Sodium Chloride 0.9% 100 ML IVPB SCH ×3 (00:22→17:13)
[2017-03-25] MEDS: Sodium Chloride 0.9% 1,000 ML IV SCH (04:27)
[2017-03-25] MEDS: Oxycodone/Acetaminophen 5/325 mg Tab PO PRN ×3 (06:11→22:13)
--- NOTE | 2017-03-25 07:36 | CP.PCM.PN ---
Subjective - Date & Time of Evaluation Date of Evaluation: 03/25/17 Time of Evaluation: 07:35 - Subjective Subjective: Podiatry Progress Note - Dr. Mckeon 61 year old male patient seen and evaluated at bedside for left great toe wound. Patient hemodyndamically stable and NAD. Denies any acute events overnight. Reports increased pain to his left great toe today and still complaining of the foul odor from his toe. No other pedal complaints. Denies N/V /F/D/C/SOB/calf pain. Objective - Vital Signs/Intake and Output Vital Signs (last 24 hours): Temp Pulse Resp BP Pulse Ox 97.8 F 67 19 152/73 H 96 03/25/17 00:00 03/25/17 00:00 03/25/17 00:00 03/25/17 00:00 03/25/17 00:00 - Medications Medications: Current Medications Acetaminophen (Tylenol 325mg Tab) 650 mg PO Q6 PRN PRN Reason: Fever >100.4 F Aspirin (Aspirin Chewable) 81 mg PO DAILY [facility] Last Admin: 03/24/17 09:41 Dose: 81 mg Atorvastatin Calcium (Lipitor) 40 mg PO HS [facility] Last Admin: 03/24/17 21:27 Dose: 40 mg Bisacodyl (Dulcolax) 10 mg PO DAILY PRN PRN Reason: Constipation Carvedilol (Coreg) 3.125 mg PO Q12 [facility] Last Admin: 03/24/17 21:28 Dose: 3.125 mg Clopidogrel Bisulfate (Plavix) 75 mg PO DAILY [facility] Last Admin: 03/24/17 09:49 Dose: 75 mg Docusate Sodium (Colace) 100 mg PO BID [facility] Last Admin: 03/24/17 16:55 Dose: 100 mg Enalapril Maleate (Vasotec) 5 mg PO DAILY [facility] Last Admin: 03/24/17 09:49 Dose: 5 mg Furosemide (Lasix) 40 mg PO DAILY [facility] Last Admin: 03/24/17 09:48 Dose: 40 mg Heparin Sodium (Porcine) (Heparin) 5,000 units SC Q8 [facility] PRN Reason: Protocol Last Admin: 03/25/17 00:24 Dose: 5,000 units Sodium Chloride (Sodium Chloride 0.9%) 1,000 mls @ 100 mls/hr IV .Q10H [facility] Last Admin: 03/25/17 04:27 Dose: 100 mls/hr Vancomycin HCl 1,000 mg/ (Sodium Chloride) 250 mls @ 250 mls/hr IVPB Q12H [facility] PRN Reason: Protocol Last Admin: 03/25/17 04:22 Dose: 250 mls/hr Piperacillin Sod/Tazobactam (Sod 3.375 gm/ Sodium Chloride) 100 mls @ 100 mls/ hr IVPB Q8 [facility] PRN Reason: Protocol Last Admin: 03/25/17 00:22 Dose: 100 mls/hr Insulin Detemir (Levemir) 26 units SC HS [facility] Last Admin: 03/24/17 21:22 Dose: 26 u Insulin Human Lispro (Humalog) 0 units SC ACHS [facility] PRN Reason: Protocol Last Admin: 03/24/17 21:21 Dose: Not Given Insulin Lispro Protam/Lispro Human (Humalog Mix 75/25) 20 units SC ACB [facility] Last Admin: 03/24/17 09:43 Dose: 20 units Lactic Acid (Lac-Hydrin 12% Cream (140 G)) 1 ea TOP BID [facility] Last Admin: 03/24/17 17:01 Dose: 1 ea Mupirocin (Bactroban Ointment) 1 applic TOP BID [facility] Last Admin: 03/24/17 16:55 Dose: 1 dose Oxycodone/Acetaminophen (Percocet 5/325 Mg Tab) 1 tab PO Q4 PRN PRN Reason: Pain, severe (8-10) Stop: 03/25/17 17:02 Last Admin: 03/25/17 06:11 Dose: 1 tab Pregabalin (Lyrica) 75 mg PO DAILY [facility] Last Admin: 03/24/17 10:09 Dose: 75 mg - Labs Labs: 03/24/17 05:25 03/24/17 05:25 PT 11.8 Seconds (9.8-13.1) 03/22/17 17:11 INR 1.1 (0.9-1.2) 03/22/17 17:11 APTT 29.7 Seconds (25.6-37.1) 03/22/17 17:11 - Constitutional Appears: Well, Non-toxic, No Acute Distress - Extremities Exam Additional comments: LLE focused physical exam: VASC: DP and PT pulses weakly palpable 1/4. Temperature gradient cool to cool with left hallux cold. Non-pitting edema noted to forefoot. NEURO: Gross sensation absent. DERM: Ulceration noted to plantar sulcus of hallux measuring approximately 1.5 x 0.5 x 0.5 cm - ulcer is noted to have a 100% fibrous base with sloughing and macerated rim; (+)probe to bone; serosanguinous drainage noted, malodor present. Absent hallucal nail. Ischemic/necrotic hallux with demarcation from proximal nail groove extending distally to tip, worsening from previous visit. ORTHO: Mild tenderness on palpation to hallux. Muscle strength 5/5 for all dorsiflexors, plantarflexors, inverters, and everters. - Neurological Exam Neurological Exam: Alert, Awake, Oriented x3 - Psychiatric Exam Psychiatric exam: Normal Affect, Normal Mood Assessment and Plan - Assessment and Plan (Free Text) Assessment: 61M PMHx of DM, HTN, hypercholesteremia, CAD, PVD with infected left hallux ulceration + ischemia secondary to PVD vs frostbite. Plan: Patient seen and evaluated with attending, Dr. Mckeon afebrile, WBC increasing @ 11.8 (10.8 yesterday) L foot XR reviewed: Findings suspicious for osteomyelitis affecting the left great toe and 1st metatarsal bone as well as potentially the distal 5th metatarsal bone and multiple digits from 2nd through 5th positions. Follow-up MRI is advised for greater characterization globally. L foot MRI reviewed: acute OM w/possible developing osteonecrosis at 1st MTPJ involving 1st proximal phalanx and head of 1st metatarsal; acute OM 1st distal phalanx; abscess at 1st distal/middle phalanges L foot wound culture reveals growth of corynebacterium Continue abx per ID - Vancomycin, Zosyn L hallux cleansed with normal saline; bactroban applied to ulcer and dressed with DSD -Dakin's ordered for QD dressing changes LacHydrin bilateral LE prn Vascular plan for revascularization tomorrow 03/26 @ 9AM -Patient is stable from podiatry standpoint s/p vascular procedure tomorrow. Will treat infection via IV abx management and patient may follow up with Dr. Mckeon in the wound care clinic within 1 week of discharge Podiatry will continue to follow patient while in house
[2017-03-25] MEDS: Insulin Lispro (humaLOG) 100 Units/ml Inj SC SCH ×4 (07:45→22:30)
[2017-03-25] MEDS: Insulin Lispro Mix 75/25 100 units/ml (HumaLog) 10ml SC SCH (08:00)
--- NOTE | 2017-03-25 09:29 | MRI ---
MRI left forefoot History: Left hallux infection. Comparison: 03/22/2017 Technique: Multi-echo multiplanar sequences were performed through the left forefoot without the use of intravenous contrast. Findings: Prominent bony destructive changes centered at the 1st MTP joint space involving the base of the 1st proximal phalanx as well as the head of the 1st metatarsal bone with associated prominent decreased T1 signal and increased STIR signal concerning for acute osteomyelitis with possible superimposed developing osteonecrosis. Fluid and edema centered at the 1st MTP joint space within the adjacent soft tissues. Bony destructive changes noted at the 1st distal phalanx with decreased T1 signal and increased STIR signal also consistent with acute osteomyelitis. Prominent heterogeneous / fluid collection noted at the volar aspect of the 1st distal phalanx and middle phalanx measuring up to 1.7 x 1.9 x 2.3 centimeters which may represent a phlegmon and/or abscess collection and or prominent ulcer and or additional etiology. Clinical correlation. Scattered areas of patchy reactive edema seen at the level of the base of the 1st metatarsal bone as well as at the medial and middle cuneiform bones with associated mild patchy decreased T1 signal. This is of uncertain clinical etiology and underlying mild early acute and or developing acute inflammatory and or infectious changes cannot entirely be excluded. Clinical correlation. Minimal patchy reactive edema seen at the head of the 2nd proximal phalanx, nonspecific. Prominent reticulation and edema seen within the dorsal subcutaneous soft tissues of the midfoot. Impression: 1. Prominent bony destructive changes centered at the 1st MTP joint space involving the base of the 1st proximal phalanx as well as the head of the 1st metatarsal bone with associated prominent decreased T1 signal and increased STIR signal concerning for acute osteomyelitis with possible superimposed developing osteonecrosis. Fluid and edema centered at the 1st MTP joint space within the adjacent soft tissues. 2. Bony destructive changes noted at the 1st distal phalanx with decreased T1 signal and increased STIR signal also consistent with acute osteomyelitis. 3. Prominent heterogeneous / fluid collection noted at the volar aspect of the 1st distal phalanx and middle phalanx measuring up to 1.7 x 1.9 x 2.3 centimeters which may represent a phlegmon and/or abscess collection and or prominent ulcer and or additional etiology. Clinical correlation. 4. Scattered areas of patchy reactive edema seen at the level of the base of the 1st metatarsal bone as well as at the medial and middle cuneiform bones with associated mild patchy decreased T1 signal. This is of uncertain clinical etiology and underlying mild early acute and or developing acute inflammatory and or infectious changes cannot entirely be excluded. Clinical correlation. 5. Minimal patchy reactive edema seen at the head of the 2nd proximal phalanx, nonspecific. 6. Prominent reticulation and edema seen within the dorsal subcutaneous soft tissues of the midfoot.
[2017-03-25] MEDS: Ammonium Lactate 12% Cream (140 g) TOP SCH ×2 (09:46→17:23)
[2017-03-25 10:12] LABS: HEMATOCRIT 33.7 % (35.0-51.0); MEAN CELL VOLUME 86.2 fl (80.0-94.0); MEAN CORPUSCULAR HEMOGLOBIN 28.9 pg (27.0-31.0); MEAN CORPUSCULAR HGB CONC 33.5 g/dL (33.0-37.0); RED CELL DISTRIBUTION WIDTH 14.2 % (11.5-14.5); WHITE BLOOD COUNT 11.8 K/uL (4.8-10.8)
[2017-03-25 10:29] LABS: BLOOD UREA NITROGEN 19 mg/dl (9-20); CALCIUM 8.4 mg/dL (8.4-10.2); CARBON DIOXIDE 25 mmol/L (22-30); CHLORIDE 100 mmol/L (98-107); GFR AFRICAN-AMERICAN > 60; GLUCOSE,RANDOM 330 mg/dL (75-110); POTASSIUM 4.5 MMOL/L (3.6-5.0); SODIUM 135 mmol/l (132-148)
--- NOTE | 2017-03-25 10:38 | CP.PCM.PN ---
Subjective - Date & Time of Evaluation Date of Evaluation: 03/25/17 Time of Evaluation: 08:00 - Subjective Subjective: No acute overnight events. Pt seen and evaluated at the bedside this morning. Reports mild pain in his left foot, controlled with medications. Ambulating. Normal Urination and 2 BM. Denies fever, chills, cough, SOB, chest pain, or calf pain. Informed patient of the plan for vacular procedure tomorrow at [facility], 9am. Patient verbalized understanding. Had no concerns. Objective - Vital Signs/Intake and Output Vital Signs (last 24 hours): Temp Pulse Resp BP Pulse Ox 98.4 F 68 20 156/70 H 96 03/25/17 08:04 03/25/17 09:42 03/25/17 08:04 03/25/17 09:43 03/25/17 08:04 - Medications Medications: Current Medications Acetaminophen (Tylenol 325mg Tab) 650 mg PO Q6 PRN PRN Reason: Fever >100.4 F Aspirin (Aspirin Chewable) 81 mg PO DAILY [facility] Last Admin: 03/25/17 09:43 Dose: 81 mg Atorvastatin Calcium (Lipitor) 40 mg PO HS [facility] Last Admin: 03/24/17 21:27 Dose: 40 mg Bisacodyl (Dulcolax) 10 mg PO DAILY PRN PRN Reason: Constipation Carvedilol (Coreg) 3.125 mg PO Q12 [facility] Last Admin: 03/25/17 09:42 Dose: 3.125 mg Clopidogrel Bisulfate (Plavix) 75 mg PO DAILY [facility] Last Admin: 03/25/17 09:47 Dose: 75 mg Docusate Sodium (Colace) 100 mg PO BID [facility] Last Admin: 03/25/17 09:41 Dose: 100 mg Enalapril Maleate (Vasotec) 5 mg PO DAILY [facility] Last Admin: 03/25/17 09:42 Dose: 5 mg Furosemide (Lasix) 40 mg PO DAILY [facility] Last Admin: 03/25/17 09:43 Dose: 40 mg Heparin Sodium (Porcine) (Heparin) 5,000 units SC Q8 [facility] PRN Reason: Protocol Last Admin: 03/25/17 09:41 Dose: 5,000 units Sodium Chloride (Sodium Chloride 0.9%) 1,000 mls @ 100 mls/hr IV .Q10H [facility] Last Admin: 03/25/17 04:27 Dose: 100 mls/hr Piperacillin Sod/Tazobactam (Sod 3.375 gm/ Sodium Chloride) 100 mls @ 100 mls/ hr IVPB Q8 [facility] PRN Reason: Protocol Last Admin: 03/25/17 09:37 Dose: 100 mls/hr Vancomycin HCl 1,000 mg/ (Sodium Chloride) 250 mls @ 166.667 mls/hr IVPB Q12H [facility] PRN Reason: Protocol Insulin Detemir (Levemir) 26 units SC HS [facility] Last Admin: 03/24/17 21:22 Dose: 26 u Insulin Human Lispro (Humalog) 0 units SC ACHS [facility] PRN Reason: Protocol Last Admin: 03/25/17 07:45 Dose: 2 units Insulin Lispro Protam/Lispro Human (Humalog Mix 75/25) 20 units SC ACB [facility] Last Admin: 03/25/17 08:00 Dose: 20 units Lactic Acid (Lac-Hydrin 12% Cream (140 G)) 1 ea TOP BID [facility] Last Admin: 03/25/17 09:46 Dose: 1 ea Mupirocin (Bactroban Ointment) 1 applic TOP BID [facility] Last Admin: 03/25/17 09:46 Dose: 1 dose Oxycodone/Acetaminophen (Percocet 5/325 Mg Tab) 1 tab PO Q4 PRN PRN Reason: Pain, severe (8-10) Stop: 03/25/17 17:02 Last Admin: 03/25/17 06:11 Dose: 1 tab Pregabalin (Lyrica) 75 mg PO DAILY [facility] Last Admin: 03/25/17 09:51 Dose: 75 mg - Labs Labs: 03/25/17 09:30 03/25/17 09:30 PT 11.8 Seconds (9.8-13.1) 03/22/17 17:11 INR 1.1 (0.9-1.2) 03/22/17 17:11 APTT 29.7 Seconds (25.6-37.1) 03/22/17 17:11 - Constitutional Appears: Well, Non-toxic, No Acute Distress - Head Exam Head Exam: ATRAUMATIC, NORMAL INSPECTION - Eye Exam Eye Exam: Normal appearance - ENT Exam ENT Exam: Mucous Membranes Moist - Respiratory Exam Respiratory Exam: Clear to Ausculation Bilateral. absent: Accessory Muscle Use , Rales, Wheezes, Respiratory Distress - Cardiovascular Exam Cardiovascular Exam: REGULAR RHYTHM, +S1, +S2. absent: Murmur - GI/Abdominal Exam GI & Abdominal Exam: Soft, Normal Bowel Sounds. absent: Tenderness - Extremities Exam Extremities Exam: Normal Inspection. absent: Calf Tenderness, Full ROM, Pedal Edema Additional comments: Left 1st metarsal distal necrosis; No active bleeding or pus. Moderate peripheral swelling. - Neurological Exam Neurological Exam: Awake, Oriented x3 - Psychiatric Exam Psychiatric exam: Normal Affect Assessment and Plan - Assessment and Plan (Free Text) Assessment: Assessment: 61-year-old male with past medical history of chronic foot ulcer, diabetes mellitus, hypertension, CAD with a history of 6 stents, PVD with a total of 10 stents between both lower extremities, presenting to the emergency room for worsening foot pain with his chronic ulcer, the pain is severe.Patient was seen by Dr. Matthew in the office and was sent to the emergency room. Pt was found to have leukocytosis, hyponatremia, elevated creatinine. Received MRI of foot yesterday. Plan for vascularization procedure at [place] tomorrow, 9am. Insurance Operations Rep (Dr. paul), Podiatry (Dr. Matthew), and Infectious Disease(Dr. Roberts) on board. 1. Suspected left hallux Osteomyelitis Xray showed ;suspicious gross osteomyelitis affecting the left great toe and 1st metatarsal bone as well as potentially the distal 5th metatarsal bone and multiple digits from 2nd through 5th positions MRI showed prominent body destruction of 1st MTP, concerning for acute osteomylitis with superimposed osteonecrosis; Fluid collection suggesting phlemon or abscess Podiatry on board- will speak with podiatry today with regards to patient surgical plan post vascularization. Infectious Disease on board (Dr. Roberts) WBC 11.8 (slight increased from yesterady) afebrile Continue vancomycin and Zosyn initiated 03/22/17 Blood cx with no growth 48 hours. Left foot cx positive for corynovbacter species Vascular eval with Dr. Paul, plan for Vascularization at [facility] tomorrow, 9am 2. Diabetes mellitus with neuropathy uncontrolled Accu-Cheks and insulin sliding scale continue Lyrica resumed levemir 26 units SQ HS and humalog AC breakfast 3.Acute kidney injury continue normal saline and monitor Cr improving from 1.6 on admission, 1.2 today 4.Hypertension controlled continue home meds 5.Coronary artery disease history of [address] Paul, consulted for possible preop clearance Continue aspirin, Plavix, Lipitor, Coreg 3.125 every 12, Lasix 40 daily 6. Hyponatremia Resolved, 135 today continue IVF 7.PVD continue aspirin and Plavix 8.VTE prophylaxis heparin
[2017-03-25] MEDS ORDERED: Lidocaine 1% Inj (20ml) ONE (11:45)
--- NOTE | 2017-03-25 12:42 | PCM.SURG1 ---
Surgeon's Initial Post Op Note - Surgeon's Notes Surgeon: Reese Kohli MD Rubber Ball Finisher: None Type of Anesthesia: Local Pre-Operative Diagnosis: Infection Operative Findings: patent right basilic vein. catheter length: 44 cm. catheter tip: cavoatrial junction Post-Operative Diagnosis: same Operation Performed: RUE PICC insertion Specimen/Specimens Removed: N/A Estimated Blood Loss: EBL {In ML}: 0 Date of Surgery/Procedure: 03/25/17 Time of Surgery/Procedure: 12:42
[2017-03-25] MEDS: Insulin Detemir 100 Units/ml Inj SC SCH (22:15)
[2017-03-26] MEDS: Piperacillin/Tazobact 3.375 GM in Sodium Chloride 0.9% 100 ML IVPB SCH ×3 (00:45→17:47)
--- NOTE | 2017-03-26 00:50 | CP.PCM.CON ---
History of Present Illness - History of Present Illness History of Present Illness: Consultation for evaluation of black toe / osteomyelitis : HPI: Keanu Underwood is a very pleasant 61-year-old -[place] male with past medical history significant for hypertension dyslipidemia diabetes mellitus coronary artery disease status post myocardial infarction in 2013 at which time he had PTCA stenting of left circumflex coronary artery and ramus intermedius. He was referred to me back in November 08 for evaluation of severe claudication and rest pains of the left lower extremity for which he underwent atherectomy and angioplasty of the left SFA and left below the knee. Over the course of the weekend he was noted to have a greenish discoloration of the left toe which got progressively worse and subsequently he noticed that the color got worse and having excruciating pain he was admitted to the hospital started on IV antibiotics and subsequently underwent MRI which shows osteomyelitis involving the distal tip of the metatarsal head. Review of Systems - Review of Systems Systems not reviewed;Unavailable: Acuity of Condition - Constitutional Constitutional: As Per HPI. absent: Anorexia, Chills, Daytime Sleepiness, Excessive Sweating, Fatigue, Fever, Frequent Falls, Headache, Increased Appetite , Lethargy, Malaise, Night Sweats, Snoring, Sleep Apnea, Weight Gain, Weight Loss, Weakness, Other - EENT Eyes: absent: As Per HPI, Blind Spots, Blurred Vision, Change in Vision, Decreased Night Vision, Diplopia, Discharge, Dry Eye, Exophthalmos, Floaters, Irritation, Itchy Eyes, Loss of Peripheral Vision, Pain, Photophobia, Requires Corrective Lenses, Sees Flashes, Spots in Vision, Tunnel Vision, Other Visual Disturbances, Loss of Vision, Other Ears: As Per HPI. absent: Decreased Hearing, Ear Discharge, Ear Pain, Tinnitus , Abnormal Hearing, Disequilibrium, Dizziness, Other Nose/Mouth/Throat: As Per HPI. absent: Epistaxis, Nasal Congestion, Nasal Discharge, Nasal Obstruction, Nasal Trauma, Nose Pain, Post Nasal Drip, Sinus Pain, Sinus Pressure, Bleeding Gums, Change in Voice, Dental Pain, Dry Mouth, Dysphagia, Halitosis, Hoarsness, Lip Swelling, Mouth Lesions, Mouth Pain, Odynophagia, Sore Throat, Throat Swelling, Tongue Swelling, Facial Pain, Neck Pain, Neck Mass, Other - Cardiovascular Cardiovascular: As Per HPI. absent: Acrocyanosis, Chest Pain, Chest Pain at Rest, Chest Pain with Activity, Claudication, Diaphoresis, Dyspnea, Dyspnea on Exertion, Edema, Irregular Heart Rhythm, Pain Radiating to Arm/Neck/Jaw, Leg Edema, Leg Ulcers, Lightheadedness, Orthopnea, Palpitations, Paroxysmal Nocturnal Dyspnea, Pedal Edema, Radiating Pain, Rapid Heart Rate, Slow Heart Rate, Syncope, Other - Gastrointestinal Gastrointestinal: As Per HPI. absent: Abdominal Pain, Belching, Bloating, Change in Bowel Habits, Change in Stool Character, Coffee Ground Emesis, Constipation, Cramping, Diarrhea, Dyspepsia, Dysphagia, Early Satiety, Excessive Flatus, Fecal Incontinence, Heartburn, Hematemesis, Hematochezia, Loose Stools, Melena, Nausea, Odynophagia, Temesmus, Vomiting, Other - Genitourinary Genitourinary: As Per HPI - Reproductive: Male Reproductive:Male: As Per HPI - Musculoskeletal Musculoskeletal: As Per HPI, Numbness. absent: Abnormal Gait, Arthralgias, Atrophy, Back Pain, Deformity, Joint Swelling, Limited Range of Motion, Loss of Height, Muscle Cramps, Muscle Weakness, Myalgias, Neck Pain, Radiating Pain into Limb, Stiffness, Tingling, Other - Integumentary Integumentary: As Per HPI, Change in Hair, Lesions, Skin Pain, Wounds. absent: Acne, Alopecia, Bleeding Lesions, Change in Nails, Change in Pigmentation, Changing Lesions, Dry Skin, Erythema, Furuncle, Hirsutism, New Lesions, Non- Healing Lesions, Photosensitivity, Pruritus, Rash, Skin Ulcer, Sores, Striae, Swelling, Unusual Bruising, Jaundice, Other - Neurological Neurological: As Per HPI. absent: Abnormal Gait, Abnormal Hearing, Abnormal Movements, Abnormal Speech, Behavioral Changes, Burning Sensations, Confusion, Convulsions, Disequilibrium, Dizziness, Numbness, Focal Weakness, Frequent Falls , Headaches, Lack of Coordination, Loss of Vision, Memory Loss, Paresthesias, Radicular Pain, Restless Legs, Sensory Deficit, Syncope, Tingling, Tremor, Vertigo, Weakness, Other Visual Disturbances, Other - Psychiatric Psychiatric: As Per HPI. absent: Abnormal Sleep Pattern, Anhedonia, Anxiety, Auditory Hallucinations, Behavioral Changes, Change in Appetite, Change in Libido, Confusion, Depression, Difficulty Concentrating, Hallucinations, Homicidal Ideation, Hopelessness, Irritability, Memory Loss, Mood Swings, Panic Attacks, Paranoia, Suicidal Ideation, Visual Hallucinations, Tactile Hallucinations, Other - Endocrine Endocrine: As Per HPI. absent: Change in Body Appearance, Change in Libido, Cold Intolorance, Deepening of Voice, Excessive Sweating, Fatigue, Flushing, Heat Intolorance, Increase in Ring/Shoe/Hat Size, Palpitations, Polydipsia, Polyphagia, Polyuria, Other - Hematologic/Lymphatic Hematologic: absent: As Per HPI, Easy Bleeding, Easy Bruising, Lymphadenopathy, Other Past Patient History - Infectious Disease Hx of Infectious Diseases: None - Tetanus Immunizations Tetanus Immunization: Unknown - Past Medical History & Family History Past Medical History?: Yes - Past Social History Smoking Status: Light Smoker < 10 Cigarettes Daily - CARDIAC Hx Hypercholesterolemia: Yes Hx Hypertension: Yes Hx Peripheral Edema: Yes - PULMONARY Hx Chronic Obstructive Pulmonary Disease (COPD): Yes (per old chart but pt denies) - NEUROLOGICAL Hx Neurological Disorder: No - HEENT Hx HEENT Problems: No - RENAL Hx Chronic Kidney Disease: No - ENDOCRINE/METABOLIC Hx Endocrine Disorders: Yes Hx Diabetes Mellitus Type 2: Yes - HEMATOLOGICAL/ONCOLOGICAL Hx Blood Disorders: No - INTEGUMENTARY Hx Dermatological Problems: Yes (NON HEALING ULCER LEFT FOOT) Hx Cellulitis: Yes - MUSCULOSKELETAL/RHEUMATOLOGICAL Hx Musculoskeletal Disorders: No Hx Falls: No - GASTROINTESTINAL Hx Gastrointestinal Disorders: No - GENITOURINARY/GYNECOLOGICAL Hx Genitourinary Disorders: No - PSYCHIATRIC Hx Psychophysiologic Disorder: No Hx Emotional Abuse: No Hx Physical Abuse: No Hx Substance Use: No - SURGICAL HISTORY Hx Coronary Stent: Yes (x6) - ANESTHESIA Hx Anesthesia: Yes Hx Anesthesia Reactions: No Hx Malignant Hyperthermia: No Meds Allergies/Adverse Reactions: Allergies Allergy/AdvReac Type Severity Reaction Status Date / Time No Known Allergies Allergy Verified 02/03/17 14:14 - Medications Medications: Current Medications Acetaminophen (Tylenol 325mg Tab) 650 mg PO Q6 PRN PRN Reason: Fever >100.4 F Aspirin (Aspirin Chewable) 81 mg PO DAILY [facility] Last Admin: 03/25/17 09:43 Dose: 81 mg Atorvastatin Calcium (Lipitor) 40 mg PO HS [facility] Last Admin: 03/25/17 22:14 Dose: 40 mg Bisacodyl (Dulcolax) 10 mg PO DAILY PRN PRN Reason: Constipation Carvedilol (Coreg) 3.125 mg PO Q12 [facility] Last Admin: 03/25/17 22:14 Dose: 3.125 mg Clopidogrel Bisulfate (Plavix) 75 mg PO DAILY [facility] Last Admin: 03/25/17 09:47 Dose: 75 mg Docusate Sodium (Colace) 100 mg PO BID [facility] Last Admin: 03/25/17 17:20 Dose: 100 mg Enalapril Maleate (Vasotec) 5 mg PO DAILY [facility] Last Admin: 03/25/17 09:42 Dose: 5 mg Furosemide (Lasix) 40 mg PO DAILY [facility] Last Admin: 03/25/17 09:43 Dose: 40 mg Heparin Sodium (Porcine) (Heparin) 5,000 units SC Q8 [facility] PRN Reason: Protocol Last Admin: 03/26/17 00:46 Dose: 5,000 units Sodium Chloride (Sodium Chloride 0.9%) 1,000 mls @ 100 mls/hr IV .Q10H [facility] Last Admin: 03/25/17 04:27 Dose: 100 mls/hr Piperacillin Sod/Tazobactam (Sod 3.375 gm/ Sodium Chloride) 100 mls @ 100 mls/ hr IVPB Q8 [facility] PRN Reason: Protocol Last Admin: 03/26/17 00:45 Dose: 100 mls/hr Vancomycin HCl 1,000 mg/ (Sodium Chloride) 250 mls @ 166.667 mls/hr IVPB Q12H [facility] PRN Reason: Protocol Last Admin: 03/25/17 17:20 Dose: 166.667 mls/hr Insulin Detemir (Levemir) 30 units SC HS [facility] Last Admin: 03/25/17 22:15 Dose: 30 units Insulin Human Lispro (Humalog) 0 units SC ACHS [facility] PRN Reason: Protocol Last Admin: 03/25/17 17:21 Dose: 3 units Insulin Lispro Protam/Lispro Human (Humalog Mix 75/25) 20 units SC ACB [facility] Last Admin: 03/25/17 08:00 Dose: 20 units Lactic Acid (Lac-Hydrin 12% Cream (140 G)) 1 ea TOP BID [facility] Last Admin: 03/25/17 17:23 Dose: 1 ea Mupirocin (Bactroban Ointment) 1 applic TOP BID [facility] Last Admin: 03/25/17 17:20 Dose: 1 dose Oxycodone/Acetaminophen (Percocet 5/325 Mg Tab) 1 tab PO Q4 PRN PRN Reason: Pain, severe (8-10) Stop: 03/28/17 21:36 Last Admin: 03/25/17 22:13 Dose: 1 tab Pregabalin (Lyrica) 75 mg PO DAILY [facility] Last Admin: 03/25/17 09:51 Dose: 75 mg Sodium Hypochlorite (Dakins Solution 0.125%) 0 appl TOP DAILY [facility] Last Admin: 03/25/17 14:25 Dose: 20 appl Physical Exam - Constitutional Appears: Well - Head Exam Head Exam: ATRAUMATIC, NORMAL INSPECTION, NORMOCEPHALIC - Eye Exam Eye Exam: EOMI, Normal appearance, PERRL Pupil Exam: NORMAL ACCOMODATION, PERRL - ENT Exam ENT Exam: Mucous Membranes Moist, Normal Exam - Neck Exam Neck exam: Positive for: Normal Inspection - Respiratory Exam Respiratory Exam: Clear to Auscultation Bilateral, NORMAL BREATHING PATTERN - Cardiovascular Exam Cardiovascular Exam: REGULAR RHYTHM, RRR, +S1, +S2 - GI/Abdominal Exam GI & Abdominal Exam: Normal Bowel Sounds, Soft. absent: Tenderness - Extremities Exam Extremities exam: Positive for: normal inspection Additional comments: left toe gangrenous - Back Exam Back exam: NORMAL INSPECTION - Neurological Exam Neurological exam: Alert, CN II-XII Intact, Oriented x3, Reflexes Normal - Psychiatric Exam Psychiatric exam: Normal Affect, Normal Mood - Skin Skin Exam: Dry, Intact, Pallor, Warm Results - Vital Signs Recent Vital Signs: Last Vital Signs Temp 98.7 F 03/25/17 16:07 Pulse 86 03/25/17 22:14 Resp 18 03/25/17 16:07 BP 163/75 H 03/25/17 22:14 Pulse Ox 98 03/25/17 16:07 - Labs Result Diagrams: 03/25/17 09:30 03/25/17 09:30 Labs: Laboratory Results - last 24 hr 03/25/17 03/25/17 03/25/17 05:39 09:30 09:30 WBC 11.8 H RBC 3.91 L Hgb 11.3 L Hct 33.7 L MCV 86.2 MCH 28.9 MCHC 33.5 RDW 14.2 Plt Count 384 Sodium 135 Potassium 4.5 Chloride 100 Carbon Dioxide 25 Anion Gap 15 BUN 19 Creatinine 1.2 Est GFR ( Amer) > 60 Est GFR (Non-Af Amer) > 60 POC Glucose (mg/dL) 244 H Random Glucose 330 H Hemoglobin A1c Calcium 8.4 03/25/17 03/25/17 03/25/17 14:15 15:44 21:46 WBC RBC Hgb Hct MCV MCH MCHC RDW Plt Count Sodium Potassium Chloride Carbon Dioxide Anion Gap BUN Creatinine Est GFR ( Amer) Est GFR (Non-Af Amer) POC Glucose (mg/dL) 227 H 233 H Random Glucose Hemoglobin A1c 12.2 H D Calcium Assessment & Plan (1) CAD (coronary artery disease) Assessment and Plan: stable no active ischemic sx Status: Acute (2) Osteomyelitis Assessment and Plan: on abx Status: Acute (3) Chronic foot ulcer Assessment and Plan: peripheral angio scheduled for tomorrow at Status: Acute Priority: High (4) Dyslipidemia Assessment and Plan: statins Status: Acute Priority: High (5) PVD (peripheral vascular disease) Status: Acute Priority: High (6) Peripheral arterial disease Status: Acute
[2017-03-26] MEDS: Oxycodone/Acetaminophen 5/325 mg Tab PO PRN ×2 (06:13→21:43)
[2017-03-26 06:17] LABS: HEMATOCRIT 32.7 % (35.0-51.0); MEAN CELL VOLUME 86.1 fl (80.0-94.0); MEAN CORPUSCULAR HEMOGLOBIN 27.8 pg (27.0-31.0); MEAN CORPUSCULAR HGB CONC 32.2 g/dL (33.0-37.0); RED CELL DISTRIBUTION WIDTH 14.1 % (11.5-14.5); WHITE BLOOD COUNT 12.1 K/uL (4.8-10.8)
[2017-03-26 06:36] LABS: BLOOD UREA NITROGEN 15 mg/dl (9-20); CALCIUM 8.7 mg/dL (8.4-10.2); CARBON DIOXIDE 26 mmol/L (22-30); CHLORIDE 103 mmol/L (98-107); GFR AFRICAN-AMERICAN > 60; GLUCOSE,RANDOM 208 mg/dL (75-110); POTASSIUM 4.3 MMOL/L (3.6-5.0); SODIUM 137 mmol/l (132-148)
--- NOTE | 2017-03-26 07:01 | CP.PCM.PN ---
Subjective - Date & Time of Evaluation Date of Evaluation: 03/26/17 Time of Evaluation: 06:59 - Subjective Subjective: Podiatry Progress Note - Dr. Mckeon 61 year old male patient seen and evaluated at bedside for left great toe wound. Patient hemodyndamically stable and NAD. Denies any acute events overnight. Reports continued pain to his left great toe; admits the foul odor from his toe has decreased. No other pedal complaints. Patient aware he is to have a vascular procedure today. NPO status confirmed. Denies N/V/F/D/C/SOB/ calf pain. Objective - Vital Signs/Intake and Output Vital Signs (last 24 hours): Temp Pulse Resp BP Pulse Ox 98.1 F 66 20 162/76 H 95 03/26/17 01:03 03/26/17 01:03 03/26/17 01:03 03/26/17 01:03 03/26/17 01:03 - Medications Medications: Current Medications Acetaminophen (Tylenol 325mg Tab) 650 mg PO Q6 PRN PRN Reason: Fever >100.4 F Aspirin (Aspirin Chewable) 81 mg PO DAILY [facility] Last Admin: 03/25/17 09:43 Dose: 81 mg Atorvastatin Calcium (Lipitor) 40 mg PO HS [facility] Last Admin: 03/25/17 22:14 Dose: 40 mg Bisacodyl (Dulcolax) 10 mg PO DAILY PRN PRN Reason: Constipation Carvedilol (Coreg) 3.125 mg PO Q12 [facility] Last Admin: 03/25/17 22:14 Dose: 3.125 mg Clopidogrel Bisulfate (Plavix) 75 mg PO DAILY [facility] Last Admin: 03/25/17 09:47 Dose: 75 mg Docusate Sodium (Colace) 100 mg PO BID [facility] Last Admin: 03/25/17 17:20 Dose: 100 mg Enalapril Maleate (Vasotec) 5 mg PO DAILY [facility] Last Admin: 03/25/17 09:42 Dose: 5 mg Furosemide (Lasix) 40 mg PO DAILY [facility] Last Admin: 03/25/17 09:43 Dose: 40 mg Heparin Sodium (Porcine) (Heparin) 5,000 units SC Q8 [facility] PRN Reason: Protocol Last Admin: 03/26/17 00:46 Dose: 5,000 units Sodium Chloride (Sodium Chloride 0.9%) 1,000 mls @ 100 mls/hr IV .Q10H [facility] Last Admin: 03/25/17 04:27 Dose: 100 mls/hr Piperacillin Sod/Tazobactam (Sod 3.375 gm/ Sodium Chloride) 100 mls @ 100 mls/ hr IVPB Q8 [facility] PRN Reason: Protocol Last Admin: 03/26/17 00:45 Dose: 100 mls/hr Vancomycin HCl 1,000 mg/ (Sodium Chloride) 250 mls @ 166.667 mls/hr IVPB Q12H [facility] PRN Reason: Protocol Last Admin: 03/26/17 04:04 Dose: 166.667 mls/hr Insulin Detemir (Levemir) 30 units SC HS [facility] Last Admin: 03/25/17 22:15 Dose: 30 units Insulin Human Lispro (Humalog) 0 units SC ACHS [facility] PRN Reason: Protocol Last Admin: 03/25/17 22:30 Dose: Not Given Insulin Lispro Protam/Lispro Human (Humalog Mix 75/25) 20 units SC ACB [facility] Last Admin: 03/25/17 08:00 Dose: 20 units Lactic Acid (Lac-Hydrin 12% Cream (140 G)) 1 ea TOP BID [facility] Last Admin: 03/25/17 17:23 Dose: 1 ea Mupirocin (Bactroban Ointment) 1 applic TOP BID [facility] Last Admin: 03/25/17 17:20 Dose: 1 dose Oxycodone/Acetaminophen (Percocet 5/325 Mg Tab) 1 tab PO Q4 PRN PRN Reason: Pain, severe (8-10) Stop: 03/28/17 21:36 Last Admin: 03/26/17 06:13 Dose: 1 tab Pregabalin (Lyrica) 75 mg PO DAILY [facility] Last Admin: 03/25/17 09:51 Dose: 75 mg Sodium Hypochlorite (Dakins Solution 0.125%) 0 appl TOP DAILY [facility] Last Admin: 03/25/17 14:25 Dose: 20 appl - Labs Labs: 03/26/17 05:45 03/26/17 05:45 PT 11.9 Seconds (9.8-13.1) 03/26/17 05:45 INR 1.0 (0.9-1.2) 03/26/17 05:45 APTT 29.7 Seconds (25.6-37.1) 03/22/17 17:11 - Constitutional Appears: Well, Non-toxic, No Acute Distress - Extremities Exam Additional comments: LLE focused physical exam: VASC: DP and PT pulses weakly palpable 1/4. Temperature gradient cool to cool with left hallux cold. Non-pitting edema noted to forefoot. NEURO: Gross sensation absent. DERM: Ulceration noted to plantar sulcus of hallux measuring approximately 1.5 x 0.5 x 0.5 cm - ulcer is noted to have a 100% fibrous base with sloughing and macerated rim; (+)probe to bone; serosanguinous drainage noted, malodor present. Absent hallucal nail. Ischemic/necrotic hallux with demarcation from proximal nail groove extending distally to tip, worsening from previous visit. ORTHO: Mild tenderness on palpation to hallux. Muscle strength 5/5 for all dorsiflexors, plantarflexors, inverters, and everters. - Neurological Exam Neurological Exam: Alert, Awake, Oriented x3 - Psychiatric Exam Psychiatric exam: Normal Affect, Normal Mood Assessment and Plan - Assessment and Plan (Free Text) Assessment: 61M PMHx of DM, HTN, hypercholesteremia, CAD, PVD with infected left hallux ulceration + ischemia secondary to PVD vs frostbite. Plan: Patient seen and evaluated Discussed with attending, Dr. Mckeon afebrile, WBC increasing @ 12.1 (11.8 yesterday) L foot XR reviewed: Findings suspicious for osteomyelitis affecting the left great toe and 1st metatarsal bone as well as potentially the distal 5th metatarsal bone and multiple digits from 2nd through 5th positions. Follow-up MRI is advised for greater characterization globally. 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 Will treat infection via IV abx management and patient may follow up with Dr. Mckeon in the wound care clinic within 1 week of discharge Podiatry will continue to follow patient while in house
[2017-03-26] MEDS: Insulin Lispro Mix 75/25 100 units/ml (HumaLog) 10ml SC SCH (08:43)
[2017-03-26] MEDS: Insulin Lispro (humaLOG) 100 Units/ml Inj SC SCH ×4 (08:43→21:45)
[2017-03-26] MEDS: Sodium Chloride 0.9% 1,000 ML IV SCH ×2 (08:48→17:19)
[2017-03-26] MEDS: Ammonium Lactate 12% Cream (140 g) TOP SCH ×2 (08:54→17:45)
--- NOTE | 2017-03-26 10:57 | CP.PCM.PN ---
<Mateo Walker - Last Filed: 03/26/17 15:06> Subjective - Date & Time of Evaluation Date of Evaluation: 03/26/17 Time of Evaluation: 08:00 - Subjective Subjective: Patient evaluated prior to vascularization at [facility]. No events overnight. No complaints this morning. Objective - Vital Signs/Intake and Output Vital Signs (last 24 hours): Temp Pulse Resp BP Pulse Ox 98.6 F 64 20 154/70 H 97 03/26/17 07:44 03/26/17 07:44 03/26/17 07:44 03/26/17 07:44 03/26/17 07:44 - Medications Medications: Current Medications Acetaminophen (Tylenol 325mg Tab) 650 mg PO Q6 PRN PRN Reason: Fever >100.4 F Aspirin (Aspirin Chewable) 81 mg PO DAILY [facility] Last Admin: 03/25/17 09:43 Dose: 81 mg Atorvastatin Calcium (Lipitor) 40 mg PO HS [facility] Last Admin: 03/25/17 22:14 Dose: 40 mg Bisacodyl (Dulcolax) 10 mg PO DAILY PRN PRN Reason: Constipation Carvedilol (Coreg) 3.125 mg PO Q12 [facility] Last Admin: 03/26/17 08:41 Dose: 3.125 mg Clopidogrel Bisulfate (Plavix) 75 mg PO DAILY [facility] Last Admin: 03/25/17 09:47 Dose: 75 mg Docusate Sodium (Colace) 100 mg PO BID [facility] Last Admin: 03/26/17 08:39 Dose: Not Given Enalapril Maleate (Vasotec) 5 mg PO DAILY [facility] Last Admin: 03/26/17 08:39 Dose: 5 mg Furosemide (Lasix) 40 mg PO DAILY [facility] Last Admin: 03/25/17 09:43 Dose: 40 mg Heparin Sodium (Porcine) (Heparin) 5,000 units SC Q8 [facility] PRN Reason: Protocol Last Admin: 03/26/17 08:43 Dose: Not Given Sodium Chloride (Sodium Chloride 0.9%) 1,000 mls @ 100 mls/hr IV .Q10H [facility] Last Admin: 03/26/17 08:48 Dose: 100 mls/hr Piperacillin Sod/Tazobactam (Sod 3.375 gm/ Sodium Chloride) 100 mls @ 100 mls/ hr IVPB Q8 [facility] PRN Reason: Protocol Last Admin: 03/26/17 08:44 Dose: 100 mls/hr Vancomycin HCl 1,000 mg/ (Sodium Chloride) 250 mls @ 166.667 mls/hr IVPB Q12H [facility] PRN Reason: Protocol Last Admin: 03/26/17 04:04 Dose: 166.667 mls/hr Insulin Detemir (Levemir) 30 units SC HS [facility] Last Admin: 03/25/17 22:15 Dose: 30 units Insulin Human Lispro (Humalog) 0 units SC ACHS [facility] PRN Reason: Protocol Last Admin: 03/26/17 08:43 Dose: Not Given Insulin Lispro Protam/Lispro Human (Humalog Mix 75/25) 20 units SC ACB [facility] Last Admin: 03/26/17 08:43 Dose: Not Given Lactic Acid (Lac-Hydrin 12% Cream (140 G)) 1 ea TOP BID [facility] Last Admin: 03/26/17 08:54 Dose: 1 applic Mupirocin (Bactroban Ointment) 1 applic TOP BID [facility] Last Admin: 03/26/17 08:39 Dose: 1 dose Oxycodone/Acetaminophen (Percocet 5/325 Mg Tab) 1 tab PO Q4 PRN PRN Reason: Pain, severe (8-10) Stop: 03/28/17 21:36 Last Admin: 03/26/17 06:13 Dose: 1 tab Pregabalin (Lyrica) 75 mg PO DAILY [facility] Last Admin: 03/25/17 09:51 Dose: 75 mg Sodium Hypochlorite (Dakins Solution 0.125%) 0 appl TOP DAILY [facility] Last Admin: 03/26/17 08:53 Dose: 1 appl - Labs Labs: 03/26/17 05:45 03/26/17 05:45 PT 11.9 Seconds (9.8-13.1) 03/26/17 05:45 INR 1.0 (0.9-1.2) 03/26/17 05:45 APTT 29.7 Seconds (25.6-37.1) 03/22/17 17:11 - Constitutional Appears: Well, Toxic, No Acute Distress - Head Exam Head Exam: ATRAUMATIC, NORMAL INSPECTION - ENT Exam ENT Exam: Mucous Membranes Moist - Respiratory Exam Respiratory Exam: Clear to Ausculation Bilateral. absent: Accessory Muscle Use , Rales, Wheezes - Cardiovascular Exam Cardiovascular Exam: REGULAR RHYTHM, +S1, +S2. absent: Murmur - GI/Abdominal Exam GI & Abdominal Exam: Soft, Normal Bowel Sounds. absent: Distended, Tenderness - Extremities Exam Extremities Exam: absent: Calf Tenderness, Pedal Edema Additional comments: necrotic ulcer, distal left big toe, pulsus +2 - Neurological Exam Neurological Exam: Alert, Awake - Psychiatric Exam Psychiatric exam: Normal Affect - Skin Skin Exam: Normal Color Assessment and Plan - Assessment and Plan (Free Text) Assessment: 61-year-old male with past medical history of chronic foot ulcer, diabetes mellitus, hypertension, CAD with a history of 6 stents, PVD with a total of 10 stents between both lower extremities, presenting to the emergency room for worsening foot pain with his chronic ulcer, the pain is severe.Patient was seen by Dr. Matthew in the office and was sent to the emergency room. Pt was found to have leukocytosis, hyponatremia, elevated creatinine. Received MRI of foot yesterday. [employer] (Dr. paul), Podiatry (Dr. Matthew), and Infectious Disease(Dr. Roberts) on board. Plan for vascularization procedure at [facility] today for angiography to evaluate vascular flow 1. Suspected left hallux Osteomyelitis -Xray showed ;suspicious gross osteomyelitis affecting the left great toe and 1st metatarsal bone as well as potentially the distal 5th metatarsal bone and multiple digits from 2nd through 5th positions -MRI showed prominent body destruction of 1st MTP, concerning for acute osteomylitis with superimposed osteonecrosis; Fluid collection suggesting phlemon or abscess -Podiatry on board- C/W with IV meds, plan for follow up outpatient in 1 week. -Infectious Disease on board (Dr. Roberts) -WBC 12.1 (slight increased from yesterady) afebrile -Continue vancomycin and Zosyn initiated 03/22/17; PICC placed yesterday -Blood cx with no growth 3 days. Left foot cx positive for corynovbacter species Plan: Vascular eval with Dr. Paul, plan for Vascularization at [facility] today. Podiatry follow up OP in 1 week post discharge with Dr. Matthew in wound care clinic. C/w IV meds 2. Diabetes mellitus with neuropathy -uncontrolled -Accu-Cheks and insulin sliding scale -continue Lyrica -resumed levemir 26 units SQ HS and humalog AC breakfast 3.Acute kidney injury -continue normal saline and monitor -Cr improving from 1.6 on admission, 1.2 today 4.Hypertension -controlled -continue home meds 5.Coronary artery disease -history of 6 stents -key ringer Dr. Paul, consulted for possible preop clearance -Continue aspirin, Plavix, Lipitor, Coreg 3.125 every 12, Lasix 40 daily 6. Hyponatremia -Resolved, 135 -continue IVF 7.PVD -continue aspirin and Plavix 8.VTE prophylaxis -heparin <Flori Hussein - Last Filed: 03/26/17 15:29> Objective - Vital Signs/Intake and Output Vital Signs (last 24 hours): Temp Pulse Resp BP Pulse Ox 98.6 F 64 20 154/70 H 97 03/26/17 07:44 03/26/17 07:44 03/26/17 07:44 03/26/17 07:44 03/26/17 07:44 - Medications Medications: Current Medications Acetaminophen (Tylenol 325mg Tab) 650 mg PO Q6 PRN PRN Reason: Fever >100.4 F Aspirin (Aspirin Chewable) 81 mg PO DAILY [facility] Last Admin: 03/25/17 09:43 Dose: 81 mg Atorvastatin Calcium (Lipitor) 40 mg PO HS [facility] Last Admin: 03/25/17 22:14 Dose: 40 mg Bisacodyl (Dulcolax) 10 mg PO DAILY PRN PRN Reason: Constipation Carvedilol (Coreg) 3.125 mg PO Q12 [facility] Last Admin: 03/26/17 08:41 Dose: 3.125 mg Clopidogrel Bisulfate (Plavix) 75 mg PO DAILY [facility] Last Admin: 03/25/17 09:47 Dose: 75 mg Docusate Sodium (Colace) 100 mg PO BID [facility] Last Admin: 03/26/17 08:39 Dose: Not Given Enalapril Maleate (Vasotec) 5 mg PO DAILY [facility] Last Admin: 03/26/17 08:39 Dose: 5 mg Furosemide (Lasix) 40 mg PO DAILY [facility] Last Admin: 03/25/17 09:43 Dose: 40 mg Heparin Sodium (Porcine) (Heparin) 5,000 units SC Q8 [facility] PRN Reason: Protocol Last Admin: 03/26/17 08:43 Dose: Not Given Sodium Chloride (Sodium Chloride 0.9%) 1,000 mls @ 100 mls/hr IV .Q10H [facility] Last Admin: 03/26/17 08:48 Dose: 100 mls/hr Piperacillin Sod/Tazobactam (Sod 3.375 gm/ Sodium Chloride) 100 mls @ 100 mls/ hr IVPB Q8 [facility] PRN Reason: Protocol Last Admin: 03/26/17 08:44 Dose: 100 mls/hr Vancomycin HCl 1,000 mg/ (Sodium Chloride) 250 mls @ 166.667 mls/hr IVPB Q12H [facility] PRN Reason: Protocol Last Admin: 03/26/17 04:04 Dose: 166.667 mls/hr Insulin Detemir (Levemir) 30 units SC HS [facility] Last Admin: 03/25/17 22:15 Dose: 30 units Insulin Human Lispro (Humalog) 0 units SC ACHS [facility] PRN Reason: Protocol Last Admin: 03/26/17 08:43 Dose: Not Given Insulin Lispro Protam/Lispro Human (Humalog Mix 75/25) 20 units SC ACB [facility] Last Admin: 03/26/17 08:43 Dose: Not Given Lactic Acid (Lac-Hydrin 12% Cream (140 G)) 1 ea TOP BID [facility] Last Admin: 03/26/17 08:54 Dose: 1 applic Mupirocin (Bactroban Ointment) 1 applic TOP BID [facility] Last Admin: 03/26/17 08:39 Dose: 1 dose Oxycodone/Acetaminophen (Percocet 5/325 Mg Tab) 1 tab PO Q4 PRN PRN Reason: Pain, severe (8-10) Stop: 03/28/17 21:36 Last Admin: 03/26/17 06:13 Dose: 1 tab Pregabalin (Lyrica) 75 mg PO DAILY [facility] Last Admin: 03/25/17 09:51 Dose: 75 mg Sodium Hypochlorite (Dakins Solution 0.125%) 0 appl TOP DAILY [facility] Last Admin: 03/26/17 08:53 Dose: 1 appl - Labs Labs: 03/26/17 05:45 03/26/17 05:45 PT 11.9 Seconds (9.8-13.1) 03/26/17 05:45 INR 1.0 (0.9-1.2) 03/26/17 05:45 APTT 29.7 Seconds (25.6-37.1) 03/22/17 17:11 Attending/Attestation - Attestation I have personally seen and examined this patient.: Yes I have fully participated in the care of the patient.: Yes I have reviewed all pertinent clinical information, including history, physical exam and plan: Yes
--- NOTE | 2017-03-26 12:31 | CP.PCM.PCO ---
Physician Communication Note - Physician Communication Note Physician Communication Note: Transferred back to [facility] post-cath after ~ 3.5 hours. resume meds
--- NOTE | 2017-03-26 12:58 | CP.PCM.PN ---
Subjective - Date & Time of Evaluation Date of Evaluation: 03/26/17 Time of Evaluation: 08:00 - Subjective Subjective: s/p cath Objective - Vital Signs/Intake and Output Vital Signs (last 24 hours): Temp Pulse Resp BP Pulse Ox 98.6 F 64 20 154/70 H 97 03/26/17 07:44 03/26/17 07:44 03/26/17 07:44 03/26/17 07:44 03/26/17 07:44 - Medications Medications: Current Medications Acetaminophen (Tylenol 325mg Tab) 650 mg PO Q6 PRN PRN Reason: Fever >100.4 F Aspirin (Aspirin Chewable) 81 mg PO DAILY [facility] Last Admin: 03/25/17 09:43 Dose: 81 mg Atorvastatin Calcium (Lipitor) 40 mg PO HS [facility] Last Admin: 03/25/17 22:14 Dose: 40 mg Bisacodyl (Dulcolax) 10 mg PO DAILY PRN PRN Reason: Constipation Carvedilol (Coreg) 3.125 mg PO Q12 [facility] Last Admin: 03/26/17 08:41 Dose: 3.125 mg Clopidogrel Bisulfate (Plavix) 75 mg PO DAILY [facility] Last Admin: 03/25/17 09:47 Dose: 75 mg Docusate Sodium (Colace) 100 mg PO BID [facility] Last Admin: 03/26/17 08:39 Dose: Not Given Enalapril Maleate (Vasotec) 5 mg PO DAILY [facility] Last Admin: 03/26/17 08:39 Dose: 5 mg Furosemide (Lasix) 40 mg PO DAILY [facility] Last Admin: 03/25/17 09:43 Dose: 40 mg Heparin Sodium (Porcine) (Heparin) 5,000 units SC Q8 [facility] PRN Reason: Protocol Last Admin: 03/26/17 08:43 Dose: Not Given Sodium Chloride (Sodium Chloride 0.9%) 1,000 mls @ 100 mls/hr IV .Q10H [facility] Last Admin: 03/26/17 08:48 Dose: 100 mls/hr Piperacillin Sod/Tazobactam (Sod 3.375 gm/ Sodium Chloride) 100 mls @ 100 mls/ hr IVPB Q8 [facility] PRN Reason: Protocol Last Admin: 03/26/17 08:44 Dose: 100 mls/hr Vancomycin HCl 1,000 mg/ (Sodium Chloride) 250 mls @ 166.667 mls/hr IVPB Q12H [facility] PRN Reason: Protocol Last Admin: 03/26/17 04:04 Dose: 166.667 mls/hr Insulin Detemir (Levemir) 30 units SC HS [facility] Last Admin: 03/25/17 22:15 Dose: 30 units Insulin Human Lispro (Humalog) 0 units SC ACHS [facility] PRN Reason: Protocol Last Admin: 03/26/17 08:43 Dose: Not Given Insulin Lispro Protam/Lispro Human (Humalog Mix 75/25) 20 units SC ACB [facility] Last Admin: 03/26/17 08:43 Dose: Not Given Lactic Acid (Lac-Hydrin 12% Cream (140 G)) 1 ea TOP BID [facility] Last Admin: 03/26/17 08:54 Dose: 1 applic Mupirocin (Bactroban Ointment) 1 applic TOP BID [facility] Last Admin: 03/26/17 08:39 Dose: 1 dose Oxycodone/Acetaminophen (Percocet 5/325 Mg Tab) 1 tab PO Q4 PRN PRN Reason: Pain, severe (8-10) Stop: 03/28/17 21:36 Last Admin: 03/26/17 06:13 Dose: 1 tab Pregabalin (Lyrica) 75 mg PO DAILY [facility] Last Admin: 03/25/17 09:51 Dose: 75 mg Sodium Hypochlorite (Dakins Solution 0.125%) 0 appl TOP DAILY [facility] Last Admin: 03/26/17 08:53 Dose: 1 appl - Labs Labs: 03/26/17 05:45 03/26/17 05:45 PT 11.9 Seconds (9.8-13.1) 03/26/17 05:45 INR 1.0 (0.9-1.2) 03/26/17 05:45 APTT 29.7 Seconds (25.6-37.1) 03/22/17 17:11 - Constitutional Appears: Non-toxic, Chronically Ill - Head Exam Head Exam: NORMOCEPHALIC - Eye Exam Eye Exam: PERRL - ENT Exam ENT Exam: Mucous Membranes Dry - Neck Exam Neck Exam: absent: Lymphadenopathy - Respiratory Exam Respiratory Exam: Decreased Breath Sounds - Cardiovascular Exam Cardiovascular Exam: REGULAR RHYTHM - GI/Abdominal Exam GI & Abdominal Exam: Distended Assessment and Plan (1) Osteomyelitis Status: Acute (2) Cellulitis Status: Acute (3) Chronic foot ulcer Status: Acute (4) Diabetes 1.5, managed as type 2 Status: Acute (5) Diabetic neuropathy Status: Acute (6) Obesity (BMI 30-39.9) Status: Acute (7) PVD (peripheral vascular disease) Status: Acute (8) Peripheral arterial disease Status: Acute (9) Pneumonia Status: Acute - Assessment and Plan (Free Text) Assessment: gross osteomyelitis affecting the left great toe and 1st metatarsal bone as well as potentially the distal 5th metatarsal bone and multiple digits from 2nd through 5th positions cont rx as ordered
[2017-03-26] MEDS: Insulin Detemir 100 Units/ml Inj SC SCH (21:45)
[2017-03-27] MEDS: Piperacillin/Tazobact 3.375 GM in Sodium Chloride 0.9% 100 ML IVPB SCH ×2 (00:18→08:28)
[2017-03-27 06:30] LABS: HEMATOCRIT 32.5 % (35.0-51.0); MEAN CELL VOLUME 85.4 fl (80.0-94.0); MEAN CORPUSCULAR HEMOGLOBIN 28.3 pg (27.0-31.0); MEAN CORPUSCULAR HGB CONC 33.2 g/dL (33.0-37.0); RED CELL DISTRIBUTION WIDTH 14.1 % (11.5-14.5); WHITE BLOOD COUNT 11.4 K/uL (4.8-10.8)
[2017-03-27 06:40] LABS: BLOOD UREA NITROGEN 14 mg/dl (9-20); CARBON DIOXIDE 26 mmol/L (22-30); CHLORIDE 102 mmol/L (98-107); GFR AFRICAN-AMERICAN > 60; GLUCOSE,RANDOM 227 mg/dL (75-110); POTASSIUM 4.1 MMOL/L (3.6-5.0); SODIUM 135 mmol/l (132-148)
--- NOTE | 2017-03-27 07:43 | CP.PCM.PN ---
Subjective - Date & Time of Evaluation Date of Evaluation: 03/27/17 Time of Evaluation: 07:36 - Subjective Subjective: Podiatry Progress Note - Dr. Mckeon 61 year old male patient seen and evaluated at bedside for left great toe wound. Patient hemodyndamically stable and NAD. Denies any acute events overnight. States he had his vascular procedure yesterday with uneventful course. Reports continued pain to left great toe however no longer complaining of foul odor. Patient is aware he is to follow up with Dr. Mckeon in wound care within 1 week of discharge. Denies N/V/F/D/C/SOB/calf pain. Objective - Vital Signs/Intake and Output Vital Signs (last 24 hours): Temp Pulse Resp BP Pulse Ox 98.7 F 67 18 173/87 H 95 03/27/17 00:00 03/27/17 00:00 03/27/17 00:00 03/26/17 21:43 03/27/17 00:00 - Medications Medications: Current Medications Acetaminophen (Tylenol 325mg Tab) 650 mg PO Q6 PRN PRN Reason: Fever >100.4 F Aspirin (Aspirin Chewable) 81 mg PO DAILY [facility] Last Admin: 03/26/17 17:09 Dose: Not Given Atorvastatin Calcium (Lipitor) 40 mg PO HS [facility] Last Admin: 03/26/17 21:43 Dose: 40 mg Bisacodyl (Dulcolax) 10 mg PO DAILY PRN PRN Reason: Constipation Carvedilol (Coreg) 3.125 mg PO Q12 [facility] Last Admin: 03/26/17 21:43 Dose: 3.125 mg Clopidogrel Bisulfate (Plavix) 75 mg PO DAILY [facility] Last Admin: 03/26/17 17:44 Dose: 75 mg Docusate Sodium (Colace) 100 mg PO BID [facility] Last Admin: 03/26/17 17:45 Dose: 100 mg Enalapril Maleate (Vasotec) 5 mg PO DAILY [facility] Last Admin: 03/26/17 08:39 Dose: 5 mg Furosemide (Lasix) 40 mg PO DAILY [facility] Last Admin: 03/26/17 17:44 Dose: 40 mg Heparin Sodium (Porcine) (Heparin) 5,000 units SC Q8 [facility] PRN Reason: Protocol Last Admin: 03/27/17 00:24 Dose: Not Given Sodium Chloride (Sodium Chloride 0.9%) 1,000 mls @ 100 mls/hr IV .Q10H [facility] Last Admin: 03/26/17 17:19 Dose: Not Given Piperacillin Sod/Tazobactam (Sod 3.375 gm/ Sodium Chloride) 100 mls @ 100 mls/ hr IVPB Q8 [facility] PRN Reason: Protocol Last Admin: 03/27/17 00:18 Dose: 100 mls/hr Vancomycin HCl 1 gm/ Sodium (Chloride) 250 mls @ 166.667 mls/hr IVPB Q12@0600, 1800 [facility] PRN Reason: Protocol Last Admin: 03/27/17 07:07 Dose: 166.667 mls/hr Insulin Detemir (Levemir) 30 units SC HS [facility] Last Admin: 03/26/17 21:45 Dose: 30 units Insulin Human Lispro (Humalog) 0 units SC ACHS [facility] PRN Reason: Protocol Last Admin: 03/26/17 21:45 Dose: Not Given Insulin Lispro Protam/Lispro Human (Humalog Mix 75/25) 20 units SC ACB [facility] Last Admin: 03/26/17 08:43 Dose: Not Given Lactic Acid (Lac-Hydrin 12% Cream (140 G)) 1 ea TOP BID [facility] Last Admin: 03/26/17 17:45 Dose: 1 applic Mupirocin (Bactroban Ointment) 1 applic TOP BID [facility] Last Admin: 03/26/17 17:45 Dose: 1 dose Oxycodone/Acetaminophen (Percocet 5/325 Mg Tab) 1 tab PO Q4 PRN PRN Reason: Pain, severe (8-10) Stop: 03/28/17 21:36 Last Admin: 03/26/17 21:43 Dose: 1 tab Pregabalin (Lyrica) 75 mg PO DAILY [facility] Last Admin: 03/26/17 17:44 Dose: 75 mg Sodium Hypochlorite (Dakins Solution 0.125%) 0 appl TOP DAILY [facility] Last Admin: 03/26/17 08:53 Dose: 1 appl - Labs Labs: 03/27/17 05:35 03/27/17 05:35 PT 11.9 Seconds (9.8-13.1) 03/26/17 05:45 INR 1.0 (0.9-1.2) 03/26/17 05:45 APTT 29.7 Seconds (25.6-37.1) 03/22/17 17:11 - Constitutional Appears: Well, Non-toxic, No Acute Distress - Extremities Exam Additional comments: LLE focused physical exam: VASC: DP and PT pulses weakly palpable 1/4. Temperature gradient warm to warm with increase in warmth noted to LLE. Non-pitting edema noted to forefoot. NEURO: Gross sensation absent. DERM: Ulceration noted to plantar sulcus of hallux measuring approximately 1.5 x 0.5 x 0.5 cm - ulcer is noted to have a 100% fibrous base with sloughing and macerated rim; (+)probe to bone; serosanguinous drainage noted, malodor present. Absent hallucal nail. Ischemic/necrotic hallux with demarcation from proximal nail groove extending distally to tip. ORTHO: Mild tenderness on palpation to hallux. Muscle strength 5/5 for all dorsiflexors, plantarflexors, inverters, and everters. - Neurological Exam Neurological Exam: Alert, Awake, Oriented x3 - Psychiatric Exam Psychiatric exam: Normal Affect, Normal Mood Assessment and Plan - Assessment and Plan (Free Text) Assessment: 61M PMHx of DM, HTN, hypercholesteremia, CAD, PVD with infected left hallux ulceration + ischemia secondary to PVD vs frostbite. Plan: Patient seen and evaluated Discussed with attending, Dr. Mckeon afebrile, WBC decreasing @ 11.4 (12.1 yesterday) L foot XR reviewed: Findings suspicious for osteomyelitis affecting the left great toe and 1st metatarsal bone as well as potentially the distal 5th metatarsal bone and multiple digits from 2nd through 5th positions. Follow-up MRI is advised for greater characterization globally. L foot MRI reviewed: acute OM w/possible developing osteonecrosis at 1st MTPJ involving 1st proximal phalanx and head of 1st metatarsal; acute OM 1st distal phalanx; abscess at 1st distal/middle phalanges L foot wound culture reveals growth of corynebacterium Continue abx per ID - Vancomycin, Zosyn -PICC placed 03/25 -Continue IV Antibiotics-Vancomycin and Ertapenem for 6 weeks via PICC L hallux cleansed with Dakin's solution; bactroban applied to ulcer and dressed with DSD LacHydrin bilateral LE prn Pt underwent peripheral angio yesterday 03/26 at Pt stable for discharge s/p vascular intervention. Patient to follow up with Dr. Mckeon in wound care clinic within 1 week of discharge Podiatry will continue to follow patient while in house
[2017-03-27 07:51] VITALS: BP 161/73; PULSE 68; RESP 20; TEMP 98.4; O2SAT 99
[2017-03-27] MEDS: Oxycodone/Acetaminophen 5/325 mg Tab PO PRN (08:15)
[2017-03-27] MEDS: Ammonium Lactate 12% Cream (140 g) TOP SCH (08:21)
[2017-03-27] MEDS: Insulin Lispro Mix 75/25 100 units/ml (HumaLog) 10ml SC SCH (08:24)
[2017-03-27] MEDS: Insulin Lispro (humaLOG) 100 Units/ml Inj SC SCH ×2 (08:27→12:50)
[2017-03-27] MEDS: Sodium Chloride 0.9% 1,000 ML IV SCH (08:37)
--- NOTE | 2017-03-27 09:37 | CP.PCM.DIS ---
Provider - Provider Date of Admission: 03/22/17 16:43 Attending physician: Eliane Pollock DO Time Spent in preparation of Discharge (in minutes): 30 Diagnosis - Discharge Diagnosis (1) Osteomyelitis Status: Acute Hospital Course - Lab Results Lab Results: Micro Results 03/22/17 14:56 Blood Blood Culture - Preliminary NO GROWTH AFTER 4 DAYS 03/22/17 17:11 Foot - Left Gram Stain - Final 03/22/17 17:11 Foot - Left Wound Culture - Final Corynebacterium Species Most Recent Lab Values WBC 11.4 K/uL (4.8-10.8) H 03/27/17 05:35 RBC 3.81 Mil/uL (4.40-5.90) L 03/27/17 05:35 Hgb 10.8 g/dL (12.0-18.0) L 03/27/17 05:35 Hct 32.5 % (35.0-51.0) L 03/27/17 05:35 MCV 85.4 fl (80.0-94.0) 03/27/17 05:35 MCH 28.3 pg (27.0-31.0) 03/27/17 05:35 MCHC 33.2 g/dL (33.0-37.0) 03/27/17 05:35 RDW 14.1 % (11.5-14.5) 03/27/17 05:35 Plt Count 335 K/uL (130-400) 03/27/17 05:35 MPV 8.2 fl (7.2-11.7) 03/23/17 07:14 Neut % (Auto) 69.5 % (50.0-75.0) 03/23/17 07:14 Lymph % (Auto) 17.8 % (20.0-40.0) L 03/23/17 07:14 Mcmullen % (Auto) 8.3 % (0.0-10.0) 03/23/17 07:14 Eos % (Auto) 3.6 % (0.0-4.0) 03/23/17 07:14 Baso % (Auto) 0.8 % (0.0-2.0) 03/23/17 07:14 Neut # 8.2 K/uL (1.8-7.0) H 03/23/17 07:14 Lymph # 2.1 K/uL (1.0-4.3) 03/23/17 07:14 Mcmullen # 1.0 K/uL (0.0-0.8) H 03/23/17 07:14 Eos # 0.4 K/uL (0.0-0.7) 03/23/17 07:14 Baso # 0.1 K/uL (0.0-0.2) 03/23/17 07:14 PT 11.9 Seconds (9.8-13.1) 03/26/17 05:45 INR 1.0 (0.9-1.2) 03/26/17 05:45 APTT 29.7 Seconds (25.6-37.1) 03/22/17 17:11 pO2 11 mm/Hg (30-55) L 03/22/17 16:56 VBG pH 7.33 (7.32-7.43) 03/22/17 16:56 VBG pCO2 52 mmHg (40-60) 03/22/17 16:56 VBG HCO3 23.5 mmol/L 03/22/17 16:56 VBG Total CO2 29.0 mmol/L (22-28) H 03/22/17 16:56 VBG O2 Sat (Calc) 16.6 % (40-65) L 03/22/17 16:56 VBG Base Excess 0.7 mmol/L (0.0-2.0) 03/22/17 16:56 VBG Potassium 4.0 mmol/L (3.6-5.2) 03/22/17 16:56 Sodium 130.0 mmol/L (132-148) L 03/22/17 16:56 Chloride 98.0 mmol/L (98-107) 03/22/17 16:56 Glucose 273 mg/dL (75-110) H 03/22/17 16:56 Lactate 0.6 mmol/L (0.7-2.1) L 03/22/17 16:56 FiO2 21.0 % 03/22/17 16:56 Sodium 135 mmol/l (132-148) 03/27/17 05:35 Potassium 4.1 MMOL/L (3.6-5.0) 03/27/17 05:35 Chloride 102 mmol/L (98-107) 03/27/17 05:35 Carbon Dioxide 26 mmol/L (22-30) 03/27/17 05:35 Anion Gap 11 (10-20) 03/27/17 05:35 BUN 14 mg/dl (9-20) 03/27/17 05:35 Creatinine 1.1 mg/dl (0.8-1.5) 03/27/17 05:35 Est GFR ( Amer) > 60 03/27/17 05:35 Est GFR (Non-Af Amer) > 60 03/27/17 05:35 POC Glucose (mg/dL) 205 mg/dL (65-110) H 03/27/17 06:02 Random Glucose 227 mg/dL (75-110) H 03/27/17 05:35 Hemoglobin A1c 12.2 % (4.2-6.5) H D 03/25/17 14:15 Calcium 9.0 mg/dL (8.4-10.2) 03/27/17 05:35 Total Bilirubin 0.4 mg/dl (0.2-1.3) 03/22/17 14:56 AST 20 U/L (17-59) 03/22/17 14:56 ALT 35 U/L (21-72) 03/22/17 14:56 Alkaline Phosphatase 116 U/L (38-126) 03/22/17 14:56 Total Protein 7.3 G/DL (6.3-8.2) 03/22/17 14:56 Albumin 3.7 g/dL (3.5-5.0) 03/22/17 14:56 Globulin 3.7 gm/dL (2.2-3.9) 03/22/17 14:56 Albumin/Globulin Ratio 1.0 (1.0-2.1) 03/22/17 14:56 Venous Blood Potassium 4.0 mmol/L (3.6-5.2) 03/22/17 16:56 Vancomycin Trough 15.1 ug/mL (5.0-10.0) H 03/27/17 05:35 - Hospital Course Hospital Course: Admission date: 03/22/17 Consultations: Cardiology (Dr. Burger), Infectious Disease (Dr. Roberts), Podiatry (Dr. Colón) Procedures: Angiography Discharge Diagnosis: Osteomyelitis Hospital Course: 61-year-old male with past medical history of chronic foot ulcer, diabetes mellitus, hypertension, CAD with a history of 6 stents, PVD with a total of 10 stents between both lower extremities, presenting with foot pain near chronic ulcer and found to have Osteomyelitits as confirmed by foot Xray and MRI. Wound Cx grew Cornybacterium species and patient was treated with Vancomycin and Zosyn. During his hospital stay, we consulted with Infectious Disease, Podiatry, and Cardiology. He had an angiography of his lower extremities at [facility] and did not require any vascular interventions. Podiatry evaluated him and did not recommend immediate surgical intervention, would like him to continue with antibiotics and follow up with them after 1 week outpatient. Pt had PICC access placed prior to discharge. On discharge, patient advised to continue IV Antibiotics-Vancomycin and Ertapenem for 6 weeks via PICC. Discharge Medications: Ertapenem 1gm IV daily for 6 weeks Vancomycin 1gm IV q12 for 6 weeks Condition upon discharge: Fair Discharge Instructions: Continue IV ABX for 6 weeks via PICC line. Follow up with Podiatry in 1 week. Discharge Exam - Head Exam Head Exam: ATRAUMATIC, NORMAL INSPECTION - ENT Exam ENT Exam: Mucous Membranes Moist - Respiratory Exam Respiratory Exam: NORMAL BREATHING PATTERN. absent: Accessory Muscle Use, Rales , Wheezes - Cardiovascular Exam Cardiovascular Exam: REGULAR RHYTHM, +S1, +S2. absent: Systolic Murmur - GI/Abdominal Exam GI & Abdominal Exam: Normal Bowel Sounds, Soft. absent: Distended, Tenderness - Extremities Exam Additional comments: Left big toe distal ulcer, dry. Dressing in tact. Good pulses - Neurological Exam Neurological exam: Alert, Oriented x3 - Psychiatric Exam Psychiatric exam: Normal Affect - Skin Skin Exam: Normal Color Discharge Plan - Discharge Medications Prescriptions: Ertapenem Sodium [Invanz] 1 gm IV DAILY #44 vial.port Vancomycin [Vancomycin Inj] 1 gm IVPB Q12 #88 vial - Follow Up Plan Condition: STABLE Disposition: HOME/ ROUTINE Instructions: Osteomyelitis (DC), Peripherally Inserted Central Catheters and Midline Catheters (DC) Additional Instructions: Follow up with Podiatry within [address] Colón Return to hospital for antibiotic infusion friday-friday to same day surgery on 7th floor and Friday and Friday to the Emergency Department. Referrals: Jacek Colón DPM [Staff Provider] - Devante Burger MD [Staff Provider] -
--- NOTE | 2017-03-27 09:48 | VASCULAR ---
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 COMPARISON: PICC placement performed 12/04/2016 PROCEDURE: 1. Focused ultrasound of the right upper extremity vasculature. 2. Ultrasound-guided access. 3. Insertion of peripherally inserted central venous catheter. 4. Fluoroscopic localization of catheter tip. PRE-PROCEDURE FINDINGS: 1. Patent right basilic vein. POST-PROCEDURE FINDINGS: 1. Placement of 4 Togolese single-lumen PICC. 2. Catheter length: 44 cm. 3. Catheter tip at cavoatrial junction. INTERVENTIONAL RADIOLOGIST: Reese Kohli M.D. (the attending was present for the entire procedure.) ANESTHESIA: None. MEDICATION: Lidocaine 1% for local subcutaneous analgesia. COMPLICATIONS: None. RADIATION DOSE: Fluoroscopy Time: 8.6 seconds Cumulative Dose: 1.64 mGy PROCEDURE DESCRIPTION AND FINDINGS: The risks, benefits, alternatives and possible complications of the procedure were fully discussed; all questions were answered and informed consent was obtained. The patient was brought into the interventional suite and a pre-procedure 'time-out' was performed. The patient was brought into the interventional suite and a pre-procedure 'time-out' was performed. The patient was placed on the fluoroscopy table in the supine position. The right upper extremity was prepped and draped in the usual sterile fashion. Maximum sterile barrier precautions were maintained throughout the entire procedure. Preliminary ultrasound images of the right upper extremity vasculature demonstrate patency of the right basilic vein. Following subcutaneous infiltration of 1% lidocaine for local analgesia, under ultrasound guidance, a 21-gauge needle was advanced into the right basilic vein with real-time visualization of needle entry. The ultrasound images were permanently recorded and submitted to the PACS. A 0.018 guidewire was advanced centrally to the cavoatrial junction. A 4.5 Togolese peel-away sheath was advanced over the guidewire. After obtaining length measurement, a 4 Togolese single-lumen PICC was placed with the tip of the catheter at the cavoatrial junction. The total length of the catheter is 44 cm. The hub of the PICC was secured to the skin using a sterile adhesive bandage. The patient tolerated the procedure well without immediate post-procedure complications and was transferred back to the floor in stable condition. IMPRESSION: SUCCESSFUL INSERTION OF RIGHT UPPER EXTREMITY PICC. PICC OK TO USE.
--- NOTE | 2017-03-27 11:57 | CP.PCM.PN ---
Subjective - Date & Time of Evaluation Date of Evaluation: 03/27/17 Time of Evaluation: 11:55 - Subjective Subjective: PGY2- progress note for cardiology, Dr. Burger Pt seen and examined at bedside. No acute events overnight. Pt had left foot angio yesterday at [facility]. Tolerated procedure well. Denies having any CP, SOB abd pain, N/V/D/C, pain in LE. Objective - Vital Signs/Intake and Output Vital Signs (last 24 hours): Temp Pulse Resp BP Pulse Ox 98.4 F 68 20 161/73 H 99 03/27/17 07:50 03/27/17 07:50 03/27/17 07:50 03/27/17 08:23 03/27/17 07:50 - Medications Medications: Current Medications Acetaminophen (Tylenol 325mg Tab) 650 mg PO Q6 PRN PRN Reason: Fever >100.4 F Aspirin (Aspirin Chewable) 81 mg PO DAILY [facility] Last Admin: 03/27/17 08:23 Dose: 81 mg Atorvastatin Calcium (Lipitor) 40 mg PO HS [facility] Last Admin: 03/26/17 21:43 Dose: 40 mg Bisacodyl (Dulcolax) 10 mg PO DAILY PRN PRN Reason: Constipation Carvedilol (Coreg) 3.125 mg PO Q12 [facility] Last Admin: 03/27/17 08:23 Dose: 3.125 mg Clopidogrel Bisulfate (Plavix) 75 mg PO DAILY [facility] Last Admin: 03/27/17 08:27 Dose: 75 mg Docusate Sodium (Colace) 100 mg PO BID [facility] Last Admin: 03/27/17 08:25 Dose: 100 mg Enalapril Maleate (Vasotec) 5 mg PO DAILY [facility] Last Admin: 03/27/17 08:27 Dose: 5 mg Furosemide (Lasix) 40 mg PO DAILY [facility] Last Admin: 03/27/17 08:23 Dose: 40 mg Heparin Sodium (Porcine) (Heparin) 5,000 units SC Q8 [facility] PRN Reason: Protocol Last Admin: 03/27/17 08:22 Dose: 5,000 units Sodium Chloride (Sodium Chloride 0.9%) 1,000 mls @ 100 mls/hr IV .Q10H [facility] Last Admin: 03/27/17 08:37 Dose: 100 mls/hr Piperacillin Sod/Tazobactam (Sod 3.375 gm/ Sodium Chloride) 100 mls @ 100 mls/ hr IVPB Q8 [facility] PRN Reason: Protocol Last Admin: 03/27/17 08:28 Dose: 100 mls/hr Vancomycin HCl 1 gm/ Sodium (Chloride) 250 mls @ 166.667 mls/hr IVPB Q12@0600, 1800 [facility] PRN Reason: Protocol Last Admin: 03/27/17 07:07 Dose: 166.667 mls/hr Insulin Detemir (Levemir) 30 units SC HS [facility] Last Admin: 03/26/17 21:45 Dose: 30 units Insulin Human Lispro (Humalog) 0 units SC ACHS [facility] PRN Reason: Protocol Last Admin: 03/27/17 08:27 Dose: 2 units Insulin Lispro Protam/Lispro Human (Humalog Mix 75/25) 20 units SC ACB [facility] Last Admin: 03/27/17 08:24 Dose: 20 units Lactic Acid (Lac-Hydrin 12% Cream (140 G)) 1 ea TOP BID [facility] Last Admin: 03/27/17 08:21 Dose: 1 applic Mupirocin (Bactroban Ointment) 1 applic TOP BID [facility] Last Admin: 03/27/17 08:21 Dose: 1 dose Oxycodone/Acetaminophen (Percocet 5/325 Mg Tab) 1 tab PO Q4 PRN PRN Reason: Pain, severe (8-10) Stop: 03/28/17 21:36 Last Admin: 03/27/17 08:15 Dose: 1 tab Pregabalin (Lyrica) 75 mg PO DAILY [facility] Last Admin: 03/27/17 08:20 Dose: 75 mg Sodium Hypochlorite (Dakins Solution 0.125%) 0 appl TOP DAILY [facility] Last Admin: 03/27/17 08:30 Dose: 20 appl - Labs Labs: 03/27/17 05:35 03/27/17 05:35 PT 11.9 Seconds (9.8-13.1) 03/26/17 05:45 INR 1.0 (0.9-1.2) 03/26/17 05:45 APTT 29.7 Seconds (25.6-37.1) 03/22/17 17:11 - Constitutional Appears: Non-toxic, No Acute Distress - Head Exam Head Exam: ATRAUMATIC - ENT Exam ENT Exam: Mucous Membranes Moist - Respiratory Exam Respiratory Exam: Clear to Ausculation Bilateral. absent: Accessory Muscle Use , Rales, Rhonchi, Wheezes, Respiratory Distress - Cardiovascular Exam Cardiovascular Exam: REGULAR RHYTHM, +S1, +S2. absent: Gallop, Rubs, Murmur - GI/Abdominal Exam GI & Abdominal Exam: Soft, Normal Bowel Sounds. absent: Distended, Firm, Guarding, Rigid, Tenderness, Organomegaly - Extremities Exam Extremities Exam: absent: Pedal Edema Additional comments: left toe bandaged - Neurological Exam Neurological Exam: Alert, Awake - Psychiatric Exam Psychiatric exam: Normal Affect, Normal Mood - Skin Skin Exam: Dry, Intact, Normal Color, Warm Assessment and Plan - Assessment and Plan (Free Text) Assessment: (1) Osteomyelitis - Angiogram done yesterday - Continue IV Abx per ID recs (2) CAD Continue DAPT, Coreg, ACEI Case will be discussed with attending
[2017-03-27] MEDS ORDERED: ERTAPENEM 1 GM IVPB STA (12:06)
--- NOTE | 2017-03-30 09:57 | PQF PNEUMO ---
Dr. Tran 03/[address] Roberts documented pneumonia. Please clarify if after study diagnosis of pneumonia was ruled in or out? This form is a permanent part of the medical record Clarification of your documentation is requested to better reflect the severity of illness and intensity of treatment of your patient. Indicators present [x] Documented diagnosis of pneumonia [] X-ray findings: [] Positive Sputum cultures [] Cough w/ fever [] Abnormal lungs sounds [] Poor gag reflex [] Speech consults/swallow evaluation [] Vent dependence [] Other: [] Location in the medical record that reflects the above clinical findings: [] Treatment Provided: [] PHYSICIAN'S RESPONSE Patient has no pneumonia Based on your medical judgment of the clinical indicators outlined above, are you treating this patient for a known or suspected: [] Aspiration pneumonia [] Community acquired pneumonia [] Ventilator associated pneumonia [] Viral pneumonia [] Bacterial pneumonia Please specify organism: [] [] Other, please indicate [] If Unable to Determine, please check the box, sign and date. Present On Admission (POA) Indicator: [] Present at the time of admission [] Not present at the time of admission [] Clinically Undetermined In responding to this query, please exercise your independent professional judgment. The fact that a question is asked does not imply that any particular answer is desired or expected. Thank you for your clarification on this documentation. If you have any questions please call:[ ] * Thank you, [ ]Nicole Pretty consultant rn [facility]
== END 2017-03-27 15:05 | disposition home or self-care (01) | DRG 638 ==
LOC: H.ER 13:18 → H.ERHOLD 16:43 → H.MEDSURG1 18:23
PROVIDERS: ADMIT Student in an Organized Health Care Education/Training Program; ATTEND Student in an Organized Health Care Education/Training Program
PROC: 02HV33Z Insertion of Infusion Device into Superior Vena Cava, Percutaneous Approach (ICD-10-PCS; principal; 2017-03-25)
PROC: B40DYZZ Plain Radiography of Aorta and Bilateral Lower Extremity Arteries using Other Contrast (ICD-10-PCS; 2017-03-26)
DX: E11.69 Type 2 diabetes mellitus with other specified complication (principal); M86.172 Other acute osteomyelitis, left ankle and foot; N17.9 Acute kidney failure, unspecified; E11.40 Type 2 diabetes mellitus with diabetic neuropathy, unspecified; E11.51 Type 2 diabetes mellitus with diabetic peripheral angiopathy without gangrene; E87.1 Hypo-osmolality and hyponatremia; L02.612 Cutaneous abscess of left foot; I10 Essential (primary) hypertension; E78.00 Pure hypercholesterolemia, unspecified; E78.5 Hyperlipidemia, unspecified; I25.10 Atherosclerotic heart disease of native coronary artery without angina pectoris; Z95.5 Presence of coronary angioplasty implant and graft; E66.9 Obesity, unspecified; Z68.30 Body mass index [BMI] 30.0-30.9, adult; E11.65 Type 2 diabetes mellitus with hyperglycemia; B96.89 Other specified bacterial agents as the cause of diseases classified elsewhere; L97.529 Non-pressure chronic ulcer of other part of left foot with unspecified severity; I70.203 Unspecified atherosclerosis of native arteries of extremities, bilateral legs

== ENCOUNTER 2017-04-15 12:41 | Emergency (ER) | payer MEDICARE ==
[2017-04-15 12:41] VITALS: BMI 32.7
[2017-04-15 12:45] VITALS: PULSE 66; RESP 16; TEMP 97.3; O2SAT 98
--- NOTE | 2017-04-15 14:36 | RAD ---
HISTORY: cough COMPARISON: Chest radiograph dated 02/03/2017 TECHNIQUE: Chest PA and lateral FINDINGS: LUNGS: No active pulmonary disease. PLEURA: No significant pleural effusion identified. No pneumothorax apparent. CARDIOVASCULAR: Cardiomediastinal silhouette stably prominent. OSSEOUS STRUCTURES: Unchanged. VISUALIZED UPPER ABDOMEN: Normal. OTHER FINDINGS: None. IMPRESSION: No active disease.
--- NOTE | 2017-04-15 14:38 | ED PDOC ---
HPI: General Adult Time Seen by Provider: 04/15/17 13:23 Chief Complaint (Nursing): Wound Check Chief Complaint (Provider): piCC line removal Additional Complaint(s): 61yo M in ED for eval of picc line removal sent by Fabrizio for removal. no longer is using ABX via PICC line. no fever no PARRISH no SOB no chest. Past Medical History Reviewed: Historical Data, Nursing Documentation, Vital Signs Vital Signs: Last Vital Signs Temp 97.3 F L 04/15/17 12:42 Pulse 66 04/15/17 12:42 Resp 16 04/15/17 12:42 BP 171/69 H 04/15/17 12:42 Pulse Ox 98 04/15/17 12:42 - Medical History PMH: CAD, COPD (per old chart but pt denies), Diabetes, HTN, Hypercholesterolemia, Peripheral Edema Denies: HIV, Chronic Kidney Disease - Surgical History Surgical History: Coronary Stent (x6) - Family History Family History: States: Unknown Family Hx, Hypertension - Home Medications Home Medications: Ambulatory Orders Medication Instructions Recorded Clopidogrel Bisulfate 75 mg PO DAILY 03/24/17 Colchicine [Colcrys] 0.6 mg PO BID 03/24/17 Enalapril Maleate [Vasotec] 10 mg PO DAILY 03/24/17 Insulin Glargine, Recombina 30 units SC HS 03/24/17 [Lantus] Oxycodone HCl/Acetaminophen 5 - 325 mg PO DAILY PRN 03/24/17 [Oxycodone-Acetaminophen 5-325] Valsartan/Hydrochlorothiazide 12.5 - 320 mg PO DAILY 03/24/17 [Valsartan-Hctz 320-12.5 mg Tab] Aspirin [Aspirin Chewable] 81 mg PO DAILY chew 03/27/17 Atorvastatin [Lipitor] 40 mg PO HS tab 03/27/17 Carvedilol [Coreg] 3.125 mg PO Q12 tab 03/27/17 Clopidogrel [Plavix] 75 mg PO DAILY tab 03/27/17 Enalapril Maleate [Vasotec] 5 mg PO DAILY tab 03/27/17 Ertapenem Sodium [Invanz] 1 gm IV DAILY #44 vial.port 03/27/17 Furosemide [Lasix] 40 mg PO DAILY tab 03/27/17 Insulin Lispro Mix 75/25 [HumaLog 20 units SC ACB vial 03/27/17 MIX 75/25] Mupirocin 2% Ointment [Bactroban 1 applic TOP BID tube 03/27/17 Ointment] Pregabalin [Lyrica] 75 mg PO DAILY cap 03/27/17 Vancomycin [Vancomycin Inj] 1 gm IVPB Q12 #88 vial 03/27/17 - Allergies Allergies/Adverse Reactions: Allergies Allergy/AdvReac Type Severity Reaction Status Date / Time No Known Allergies Allergy Verified 04/15/17 12:42 Review of Systems ROS Statement: Except As Marked, All Systems Reviewed And Found Negative Constitutional: Negative for: Fever, Chills Physical Exam - Reviewed Nursing Documentation Reviewed: Yes Vital Signs Reviewed: Yes - Physical Exam Appears: Positive for: Well, Non-toxic, No Acute Distress Skin: Positive for: Normal Color, Warm, DRY Eye Exam: Positive for: Normal appearance ENT: Positive for: Normal ENT Inspection Neck: Positive for: Normal, Painless ROM Cardiovascular/Chest: Positive for: Regular Rate, Rhythm Respiratory: Positive for: Normal Breath Sounds Extremity: Positive for: Other (right arm PICC line noted no surroding ertyhema ) Neurologic/Psych: Positive for: Alert, Oriented - ECG O2 Sat by Pulse Oximetry: 98 - Radiology X-Ray: Interpreted by Me, Read By Radiologist X-Ray Interpretation: No Acute Disease - Progress ED Course And Treament: PICC line removed, pressure applied wound dressing applied. Medical Decision Making Medical Decision Making: stable for d/c Disposition - Clinical Impression Clinical Impression: PIC line (peripherally inserted central catheter) removal - Patient ED Disposition Is Patient to be Admitted: No Counseled Patient/Family Regarding: Need For Followup - Disposition Disposition: Routine/Home Disposition Time: 14:39 Condition: STABLE Instructions: Peripherally Inserted Central Catheters and Midline Catheters ( GEN)
[2017-04-15 14:50] VITALS: BP 154/78
== END 2017-04-15 14:49 | disposition home or self-care (01) ==
LOC: H.ER 12:41
DX: Z45.2 Encounter for adjustment and management of vascular access device (principal); E11.9 Type 2 diabetes mellitus without complications; Z79.4 Long term (current) use of insulin; E78.00 Pure hypercholesterolemia, unspecified; I10 Essential (primary) hypertension; J44.9 Chronic obstructive pulmonary disease, unspecified; Z79.82 Long term (current) use of aspirin; Z95.5 Presence of coronary angioplasty implant and graft; I25.10 Atherosclerotic heart disease of native coronary artery without angina pectoris

== ENCOUNTER 2017-05-06 10:19 | Inpatient (IN) | payer MEDICARE ==
[2017-05-06 10:20] VITALS: BMI 32.7
[2017-05-06] MEDS ORDERED: Povidone Iodine Topical 10% Sol ONE (12:13)
--- NOTE | 2017-05-06 12:14 | ED PDOC ---
HPI: General Adult Time Seen by Provider: 05/06/17 10:49 Chief Complaint (Nursing): Lower Extremity Problem/Injury History Per: Patient Additional Complaint(s): Pt. states he was asked by Dr. Matthew to come to hospital today for an amputation of the L great toe. Offers no complaints at this time. Denies numbness, tingling, fever. Past Medical History Reviewed: Historical Data, Nursing Documentation, Vital Signs Vital Signs: Last Vital Signs Temp 97.5 F L 05/06/17 18:25 Pulse 67 05/06/17 18:25 Resp 20 05/06/17 18:25 BP 162/87 H 05/06/17 18:25 Pulse Ox 100 05/06/17 18:25 - Medical History PMH: CAD, COPD (per old chart but pt denies), Diabetes, HTN, Hypercholesterolemia, Peripheral Edema Denies: HIV, Chronic Kidney Disease - Surgical History Surgical History: Coronary Stent (x6) - Family History Family History: States: Hypertension - Home Medications Home Medications: Ambulatory Orders Medication Instructions Recorded Amoxicillin/Clavulanate [Augmentin 1 tab PO BID 05/06/17 875 MG-125 MG Tab] Aspirin 325 mg PO DAILY 05/06/17 Clopidogrel [Plavix] 75 mg PO DAILY 05/06/17 Colchicine [Colcrys] 0.6 mg PO Q12H 05/06/17 Insulin Aspart, Recombinant 10 unit SC ACTID 05/06/17 [Novolog] Insulin Glargine, Recombina 20 unit SC QAM 05/06/17 [Lantus] Insulin Glargine, Recombina 30 unit SC HS 05/06/17 [Lantus] Morphine [Morphine Immediate 15 mg PO Q12H 05/06/17 Release Tab] Sitagliptin Phos/Metformin HCl 1 tab PO DAILY 05/06/17 [Janumet Xr 100-1,000 mg Tablet] Valsartan/Hydrochlorothiazide 1 tab PO DAILY 05/06/17 [Diovan Hct 320-12.5 mg Tab] amLODIPine [Norvasc] 5 mg PO DAILY 05/06/17 oxyCODONE/Acetaminophen [Percocet 1 tab PO Q12H PRN 05/06/17 5/325 mg Tab] - Allergies Allergies/Adverse Reactions: Allergies Allergy/AdvReac Type Severity Reaction Status Date / Time No Known Allergies Allergy Verified 04/15/17 12:42 Review of Systems ROS Statement: Except As Marked, All Systems Reviewed And Found Negative Physical Exam - Reviewed Nursing Documentation Reviewed: Yes Vital Signs Reviewed: Yes - Physical Exam Appears: Positive for: Well, Non-toxic, No Acute Distress Head Exam: Positive for: ATRAUMATIC, NORMAL INSPECTION, NORMOCEPHALIC Skin: Positive for: Normal Color, Warm. Negative for: Rash Eye Exam: Positive for: EOMI, Normal appearance, PERRL ENT: Positive for: Normal ENT Inspection Neck: Positive for: Normal, Painless ROM Cardiovascular/Chest: Positive for: Regular Rate, Rhythm Respiratory: Positive for: CNT, Normal Breath Sounds Pulses-Dorsalis Pedis (L): 2+ Pulses-Dorsalis Pedis (R): 2+ Gastrointestinal/Abdominal: Positive for: Normal Exam, Bowel Sounds, Soft. Negative for: Tenderness Back: Positive for: Normal Inspection Extremity: Positive for: Normal ROM, Other (L great toe with wound and foul odor ) Neurologic/Psych: Positive for: Alert, Oriented - Laboratory Results Result Diagrams: 05/06/17 12:20 05/06/17 13:46 - ECG ECG: Positive for: Interpreted By Me ECG Rhythm: Positive for: Sinus Rhythm. Negative for: ST/T Changes Rate: 66 O2 Sat by Pulse Oximetry: 99 - Radiology X-Ray: Interpreted by Me (CXR) X-Ray Interpretation: No Acute Disease - Progress ED Course And Treament: Labs ordered. Case d/w podiatry and arrangements made for admission. Case d/w Dr. Hastings (pt's PMD is Dr. Hubbard), and arrangements made for admission. K: 5.4 EKG ordered. Results d/w Dr. Morgan and states pt only requires hydration if EKG is normal. IV NS bolus ordered. 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 can be cleared for surgery today. Disposition - Clinical Impression Clinical Impression: Diabetic foot - Patient ED Disposition Is Patient to be Admitted: Yes - Disposition Disposition Time: 13:42 Condition: STABLE
--- NOTE | 2017-05-06 12:18 | RAD ---
HISTORY: Medical clearance. Portable erect study 11:45. COMPARISON: 04/15/2017. FINDINGS: LUNGS: No active pulmonary disease. PLEURA: No significant pleural effusion identified, no pneumothorax apparent. CARDIOVASCULAR: No radiographic findings to suggest acute or significant cardiovascular disease. OSSEOUS STRUCTURES: No significant abnormalities. VISUALIZED UPPER ABDOMEN: Normal. OTHER FINDINGS: None. IMPRESSION: No active disease. No significant interval change compared to the prior examination(s).
[2017-05-06 12:30] LABS: BASO # 0.1 K/uL (0.0-0.2); BASO % 1.4 % (0.0-2.0); EOS # 0.3 K/uL (0.0-0.7); EOS % 2.5 % (0.0-4.0); HEMOGLOBIN 12.7 g/dL (12.0-18.0); LYMPH # 1.6 K/uL (1.0-4.3); LYMPH % 14.8 % (20.0-40.0); MEAN CELL VOLUME 84.7 fl (80.0-94.0); MEAN CORPUSCULAR HEMOGLOBIN 28.5 pg (27.0-31.0); MEAN CORPUSCULAR HGB CONC 33.7 g/dL (33.0-37.0); MEAN PLATELET VOLUME 8.9 fl (7.2-11.7); MONO # 0.9 K/uL (0.0-0.8); MONO % 8.1 % (0.0-10.0); NEUT # 7.8 K/uL (1.8-7.0); NEUT % 73.2 % (50.0-75.0); RBC 4.45 Mil/uL (4.40-5.90); RED CELL DISTRIBUTION WIDTH 14.9 % (11.5-14.5); WHITE BLOOD COUNT 10.7 K/uL (4.8-10.8)
--- NOTE | 2017-05-06 12:37 | CP.PCM.CON ---
History of Present Illness - History of Present Illness History of Present Illness: Podiatry Consult- Dr. Matthew 61 y.o male with PMHx of DM, HTN, hypercholesteremia, heart disease presents to the ED for left hallux gangrene. Patient is known to Dr. Matthew and podiatry service. Patient reports he has had problems with the left hallux for a while but the toe has gotten worse over 1 month after being outside, shoveling in the snow. Patient reports that there is increase drainage and odor to the big toe. The toe has gotten more dark and red with drainage. He has been changing the dressing everyday with betadine and cling but that does not help. Patient reports not eating or drinking since 8pm last night. Patient denies n/v/sob/cp/ chills or f. PMH: DM, HTN, hypercholesteremia, heart disease, 2 heart attacks PSH: multiple stents placement SH: denies drinking alcohol or ilicit drug use; former smoker 1 pack a day for 30 years (quit 8 months ago) FH: father-DM, from sepsis, mother-denies ALL: NKDA MEDS: see medication list Past Patient History - Infectious Disease Hx of Infectious Diseases: None - Tetanus Immunizations Tetanus Immunization: Unknown - Past Medical History & Family History Past Medical History?: Yes - Past Social History Smoking Status: Light Smoker < 10 Cigarettes Daily - CARDIAC Hx Hypercholesterolemia: Yes Hx Hypertension: Yes Hx Peripheral Edema: Yes - PULMONARY Hx Chronic Obstructive Pulmonary Disease (COPD): Yes (per old chart but pt denies) - NEUROLOGICAL Hx Neurological Disorder: No - HEENT Hx HEENT Problems: No - RENAL Hx Chronic Kidney Disease: No - ENDOCRINE/METABOLIC Hx Endocrine Disorders: Yes Hx Diabetes Mellitus Type 2: Yes - HEMATOLOGICAL/ONCOLOGICAL Hx Human Immunodeficiency Virus (HIV): No - INTEGUMENTARY Hx Dermatological Problems: Yes (NON HEALING ULCER LEFT FOOT) Hx Cellulitis: Yes - MUSCULOSKELETAL/RHEUMATOLOGICAL Hx Musculoskeletal Disorders: No Hx Falls: No - GASTROINTESTINAL Hx Gastrointestinal Disorders: No - GENITOURINARY/GYNECOLOGICAL Hx Genitourinary Disorders: No - PSYCHIATRIC Hx Psychophysiologic Disorder: No Hx Emotional Abuse: No Hx Physical Abuse: No Hx Substance Use: No - SURGICAL HISTORY Hx Coronary Stent: Yes (x6) - ANESTHESIA Hx Anesthesia: Yes Hx Anesthesia Reactions: No Hx Malignant Hyperthermia: No Meds Allergies/Adverse Reactions: Allergies Allergy/AdvReac Type Severity Reaction Status Date / Time No Known Allergies Allergy Verified 04/15/17 12:42 Physical Exam - Constitutional Appears: Well, Non-toxic, No Acute Distress - Extremities Exam Additional comments: LLE focused physical exam: VASC: DP and PT pulses weakly palpable 1/4. Temperature gradient warm to warm with increase in warmth noted to LLE. Non-pitting edema noted to forefoot. NEURO: Gross and protective sensation absent. DERM: Ulceration noted to plantar sulcus of hallux measuring approximately 1cm x 0.5 x 0.5 cm - ulcer is noted to have a 100% fibrous base with sloughing and macerated rim; (+)probe to bone; serosanguinous drainage noted, malodor present. Absent hallucal nail. Ischemic/necrotic hallux with demarcation from proximal nail groove extending distally to tip, malodorous, with drainage noted to dressing when removed. Erythema noted to the entire hallux. ORTHO: Moderate tenderness on palpation to hallux. Muscle strength 5/5 for all dorsiflexors, plantarflexors, inverters, and everters. Results - Vital Signs Recent Vital Signs: Last Vital Signs Temp 97.4 F L 05/06/17 10:29 Pulse 82 05/06/17 10:29 Resp 20 05/06/17 10:29 BP 145/84 05/06/17 10:29 Pulse Ox 99 05/06/17 12:14 - Labs Result Diagrams: 05/06/17 12:20 05/06/17 13:46 Assessment & Plan - Assessment and Plan (Free Text) Assessment: 61 y.o male with PMHx of DM, HTN, hypercholesteremia, heart disease presents to the ED for left hallux gangrene requiring surgical intervention. Plan: Patient examined and evaluated. Discussed the plan in detail with attending Dr. Matthew Labs, vitals, charts reviewed All conservative treatment has been exhausted and patient now opts for surgical intervention after careful explanation of risks, benefits, alternatives, and complications. Pt was explained procedure and post-operative course All pt's questions were answered to satisfaction No guarantees were made Pt understands all risks, benefits and complications of procedure Pt will go to the OR today for amputation of left hallux pending medical clearance and cardiac clearance.
[2017-05-06 12:42] LABS: ALT/SGPT 43 U/L (21-72); AST/SGOT 30 U/L (17-59); BLOOD UREA NITROGEN 25 mg/dl (9-20); CALCIUM 9.3 mg/dL (8.4-10.2); GFR AFRICAN-AMERICAN > 60; GFR NON-AFRICAN AMERICAN 52
[2017-05-06 12:50] LABS: SPERM URINE MANY /hpf; SQUAMOUS EPITHIAL < 1 /hpf (0-5); URINE BACTERIA MANY (<OCC); URINE BILIRUBIN NEGATIVE (NEGATIVE); URINE BLOOD SMALL (NEGATIVE); URINE CLARITY CLOUDY (Clear); URINE COLOR YELLOW (YELLOW); URINE GLUCOSE (UA) 150 mg/dL (Normal); URINE LEUKOCYTE ESTERASE NEG Leu/uL (Negative); URINE NITRATE NEGATIVE (NEGATIVE); URINE PROTEIN >=500 mg/dL (NEGATIVE); URINE UROBILINOGEN 0.2-1.0 mg/dL (0.2-1.0)
[2017-05-06] MEDS ORDERED: Sodium Chloride 0.9% 1,000 ML IV STA (12:54)
[2017-05-06 12:57] LABS: PARTIAL THROMBOPLASTIN TIME 31.4 Seconds (25.6-37.1); PROTHROMBIN TIME 10.5 Seconds (9.8-13.1)
--- NOTE | 2017-05-06 13:58 | CP.PCM.HP ---
<Roland Rucker - Last Filed: 05/06/17 16:18> History of Present Illness - History of Present Illness History of Present Illness: 61 year old male patient with PMHx of DM, HTN, hypercholestrolemia, heart disease presents to the ED for left hallux gangrene. Patient reports he has had problems with the left hallux for a while but the toe has gotten worse over 1 month. Patient reports that he was out shoveling the snow about a month ago from which he acquired howell bites on his toe and led to where he is now. Patient reports that there is increase drainage and odor to the big toe and the toe has gotten more dark and red overtime. Patient denies of having any recent F /N/V/C/SOB/CP/headache/diarrhea/constipation. Patient reports that he has had 2 heart attacks in the past and admits to having surgery. Patient reports that he has had stent placement in his heart as well as bilateral leg vessels. Patient states that he can walk few blocks before he gets tired. Patient denies of having any chest pain or shortness of breath during physical activity or while at rest. Patient denies of any other complains at this time. PMHx: DM, HTN, Hypercholesteremia, Heart disease, Heart attacks x 2 PSHx: Multiple stents placement Allergies: N.K.D.A Medications: See chart SHx: Stopped smoking 8 months ago, denies EtOH or illicit drug usage FHx: Father: HTN, Hypercholestrolemia, due to DM complications; Mother: Alive Present on Admission - Present on Admission Any Indicators Present on Admission: Yes History of Uncontrolled Diabetes: Yes Review of Systems - Constitutional Constitutional: As Per HPI - EENT Eyes: As Per HPI - Cardiovascular Cardiovascular: As Per HPI - Respiratory Respiratory: As Per HPI - Gastrointestinal Gastrointestinal: As Per HPI - Musculoskeletal Musculoskeletal: As Per HPI - Integumentary Integumentary: Erythema, Skin Ulcer, Swelling, Wounds, Other - Neurological Neurological: As Per HPI - Psychiatric Psychiatric: As Per HPI - Endocrine Endocrine: As Per HPI - Hematologic/Lymphatic Hematologic: As Per HPI Past Patient History - Infectious Disease Hx of Infectious Diseases: None - Tetanus Immunizations Tetanus Immunization: Unknown - Past Medical History & Family History Past Medical History?: Yes - Past Social History Smoking Status: Light Smoker < 10 Cigarettes Daily - CARDIAC Hx Hypercholesterolemia: Yes Hx Hypertension: Yes Hx Peripheral Edema: Yes - PULMONARY Hx Chronic Obstructive Pulmonary Disease (COPD): Yes (per old chart but pt denies) - NEUROLOGICAL Hx Neurological Disorder: No - HEENT Hx HEENT Problems: No - RENAL Hx Chronic Kidney Disease: No - ENDOCRINE/METABOLIC Hx Endocrine Disorders: Yes Hx Diabetes Mellitus Type 2: Yes - HEMATOLOGICAL/ONCOLOGICAL Hx Human Immunodeficiency Virus (HIV): No - INTEGUMENTARY Hx Dermatological Problems: Yes (NON HEALING ULCER LEFT FOOT) Hx Cellulitis: Yes - MUSCULOSKELETAL/RHEUMATOLOGICAL Hx Musculoskeletal Disorders: No Hx Falls: No - GASTROINTESTINAL Hx Gastrointestinal Disorders: No - GENITOURINARY/GYNECOLOGICAL Hx Genitourinary Disorders: No - PSYCHIATRIC Hx Psychophysiologic Disorder: No Hx Emotional Abuse: No Hx Physical Abuse: No Hx Substance Use: No - SURGICAL HISTORY Hx Coronary Stent: Yes (x6) - ANESTHESIA Hx Anesthesia: Yes Hx Anesthesia Reactions: No Hx Malignant Hyperthermia: No Meds Allergies/Adverse Reactions: Allergies Allergy/AdvReac Type Severity Reaction Status Date / Time No Known Allergies Allergy Verified 04/15/17 12:42 Physical Exam - Constitutional Appears: Well, Non-toxic, No Acute Distress - Head Exam Head Exam: ATRAUMATIC - Eye Exam Eye Exam: Normal appearance - ENT Exam ENT Exam: Normal Exam - Neck Exam Neck exam: Positive for: Full Rom - Respiratory Exam Respiratory Exam: Clear to Auscultation Bilateral, NORMAL BREATHING PATTERN. absent: Rales, Rhonchi, Wheezes - Cardiovascular Exam Cardiovascular Exam: REGULAR RHYTHM, +S1, +S2. absent: Bradycardia, Tachycardia - GI/Abdominal Exam GI & Abdominal Exam: Normal Bowel Sounds, Soft. absent: Mass, Organomegaly - Rectal Exam Rectal Exam: Deferred - Extremities Exam Extremities exam: Positive for: normal inspection. Negative for: calf tenderness Additional comments: Dressing on the left foot is clean, dry and intact with no strike through - Back Exam Back exam: FULL ROM, NORMAL INSPECTION - Neurological Exam Neurological exam: Alert, Oriented x3 - Psychiatric Exam Psychiatric exam: Normal Affect, Normal Mood - Skin Skin Exam: Erythema, Normal Color, Warm Results - Vital Signs Recent Vital Signs: Last Vital Signs Temp 97.4 F L 05/06/17 10:29 Pulse 82 05/06/17 10:29 Resp 20 05/06/17 10:29 BP 145/84 05/06/17 10:29 Pulse Ox 99 01/30/18 12:14 - Labs Result Diagrams: 05/06/17 12:20 05/06/17 13:46 Labs: Laboratory Results - last 24 hr 05/06/17 05/06/17 05/06/17 12:20 12:20 12:20 WBC 10.7 RBC 4.45 Hgb 12.7 Hct 37.7 MCV 84.7 MCH 28.5 MCHC 33.7 RDW 14.9 H Plt Count 333 MPV 8.9 Neut % (Auto) 73.2 Lymph % (Auto) 14.8 L [place] % (Auto) 8.1 Eos % (Auto) 2.5 Baso % (Auto) 1.4 Neut # 7.8 H Lymph # 1.6 [place] # 0.9 H Eos # 0.3 Baso # 0.1 PT INR APTT Sodium 138 Potassium 5.4 H Chloride 104 Carbon Dioxide 25 Anion Gap 14 BUN 25 H Creatinine 1.4 Est GFR ( Amer) > 60 Est GFR (Non-Af Amer) 52 Random Glucose 207 H Calcium 9.3 Total Bilirubin 0.5 AST 30 ALT 43 Alkaline Phosphatase 129 H Total Protein 7.9 Albumin 4.0 Globulin 3.8 Albumin/Globulin Ratio 1.0 Urine Color Yellow Urine Clarity Cloudy Urine pH 5.0 Ur Specific [place] 1.024 Urine Protein >=500 Urine Glucose (UA) 150 Urine Ketones Negative Urine Blood Small Urine Nitrate Negative Urine Bilirubin Negative Urine Urobilinogen 0.2-1.0 Ur Leukocyte Esterase Neg Urine RBC (Auto) 14 H Urine Microscopic WBC 4 Ur Squamous Epith Cells < 1 Urine Bacteria Many H Urine Sperm (Auto) Many H Blood Type Antibody Screen BBK History Checked 05/06/17 05/06/17 12:20 12:20 WBC RBC Hgb Hct MCV MCH MCHC RDW Plt Count MPV Neut % (Auto) Lymph % (Auto) [place] % (Auto) Eos % (Auto) Baso % (Auto) Neut # Lymph # [place] # Eos # Baso # PT 10.5 INR 1.0 APTT 31.4 Sodium Potassium Chloride Carbon Dioxide Anion Gap BUN Creatinine Est GFR ( Amer) Est GFR (Non-Af Amer) Random Glucose Calcium Total Bilirubin AST ALT Alkaline Phosphatase Total Protein Albumin Globulin Albumin/Globulin Ratio Urine Color Urine Clarity Urine pH Ur Specific [place] Urine Protein Urine Glucose (UA) Urine Ketones Urine Blood Urine Nitrate Urine Bilirubin Urine Urobilinogen Ur Leukocyte Esterase Urine RBC (Auto) Urine Microscopic WBC Ur Squamous Epith Cells Urine Bacteria Urine Sperm (Auto) Blood Type O POSITIVE Antibody Screen Negative BBK History Checked No verified bt Assessment & Plan - Assessment and Plan (Free Text) Assessment: 61 year old male patient with PMHx of DM, HTN, hypercholestrolemia, heart disease/heart attack x 2 was evaluated for left hallux gangrene Plan: 1). Left hallux gangrene - Podiatry Consult Dr. Colón - Recommendations appreciated - Patient to OR today for partial 1st ray amputation - Cardiology Consult Dr. Burger - Recommendations appreciated - L- foot x-rays - Findings consistent with 1st digit OM - Augmentin 875 PO BID - Pre-op labs, EKG, CXR - Repeated K level: 4.8 - NPO status confirmed - NPO since 8 PM yesterday - Pain management - Monitor labs and vitals 2). DM - Continue home meds - Aspart and Glargine - Sitagliptin 3). HTN - Continue home medication - Amlodipine 5 mg qd - Valsartan PO qd - HCTZ PO qd 4). DVT PPx: - Home medication - Held for surgery - Plavix 75 mg qd - Aspirin 325 qd - Ambulating - Date & Time Date: 05/06/17 Time: :30 <Jc Hastings - Last Filed: 05/06/17 17:24> Results - Vital Signs Recent Vital Signs: Last Vital Signs Temp 97.4 F L 05/06/17 10:29 Pulse 66 05/06/17 15:13 Resp 20 05/06/17 10:29 BP 145/84 05/06/17 10:29 Pulse Ox 99 05/06/17 15:13 - Labs Result Diagrams: 05/06/17 12:20 05/06/17 13:46 Labs: Laboratory Results - last 24 hr 05/06/17 05/06/17 05/06/17 12:20 12:20 12:20 WBC 10.7 RBC 4.45 Hgb 12.7 Hct 37.7 MCV 84.7 MCH 28.5 MCHC 33.7 RDW 14.9 H Plt Count 333 MPV 8.9 Neut % (Auto) 73.2 Lymph % (Auto) 14.8 L [place] % (Auto) 8.1 Eos % (Auto) 2.5 Baso % (Auto) 1.4 Neut # 7.8 H Lymph # 1.6 [place] # 0.9 H Eos # 0.3 Baso # 0.1 PT INR APTT Sodium 138 Potassium 5.4 H Chloride 104 Carbon Dioxide 25 Anion Gap 14 BUN 25 H Creatinine 1.4 Est GFR ( Amer) > 60 Est GFR (Non-Af Amer) 52 POC Glucose (mg/dL) Random Glucose 207 H Calcium 9.3 Total Bilirubin 0.5 AST 30 ALT 43 Alkaline Phosphatase 129 H Total Protein 7.9 Albumin 4.0 Globulin 3.8 Albumin/Globulin Ratio 1.0 Urine Color Yellow Urine Clarity Cloudy Urine pH 5.0 Ur Specific [place] 1.024 Urine Protein >=500 Urine Glucose (UA) 150 Urine Ketones Negative Urine Blood Small Urine Nitrate Negative Urine Bilirubin Negative Urine Urobilinogen 0.2-1.0 Ur Leukocyte Esterase Neg Urine RBC (Auto) 14 H Urine Microscopic WBC 4 Ur Squamous Epith Cells < 1 Urine Bacteria Many H Urine Sperm (Auto) Many H Blood Type Blood Type Confirm Antibody Screen BBK History Checked 05/06/17 05/06/17 05/06/17 12:20 12:20 13:46 WBC RBC Hgb Hct MCV MCH MCHC RDW Plt Count MPV Neut % (Auto) Lymph % (Auto) [place] % (Auto) Eos % (Auto) Baso % (Auto) Neut # Lymph # [place] # Eos # Baso # PT 10.5 INR 1.0 APTT 31.4 Sodium Potassium 4.8 Chloride Carbon Dioxide Anion Gap BUN Creatinine Est GFR ( Amer) Est GFR (Non-Af Amer) POC Glucose (mg/dL) Random Glucose Calcium Total Bilirubin AST ALT Alkaline Phosphatase Total Protein Albumin Globulin Albumin/Globulin Ratio Urine Color Urine Clarity Urine pH Ur Specific [place] Urine Protein Urine Glucose (UA) Urine Ketones Urine Blood Urine Nitrate Urine Bilirubin Urine Urobilinogen Ur Leukocyte Esterase Urine RBC (Auto) Urine Microscopic WBC Ur Squamous Epith Cells Urine Bacteria Urine Sperm (Auto) Blood Type O POSITIVE Blood Type Confirm Antibody Screen Negative BBK History Checked No verified bt 05/06/17 05/06/17 14:08 15:46 WBC RBC Hgb Hct MCV MCH MCHC RDW Plt Count MPV Neut % (Auto) Lymph % (Auto) [place] % (Auto) Eos % (Auto) Baso % (Auto) Neut # Lymph # [place] # Eos # Baso # PT INR APTT Sodium Potassium Chloride Carbon Dioxide Anion Gap BUN Creatinine Est GFR ( Amer) Est GFR (Non-Af Amer) POC Glucose (mg/dL) 133 H Random Glucose Calcium Total Bilirubin AST ALT Alkaline Phosphatase Total Protein Albumin Globulin Albumin/Globulin Ratio Urine Color Urine Clarity Urine pH Ur Specific [place] Urine Protein Urine Glucose (UA) Urine Ketones Urine Blood Urine Nitrate Urine Bilirubin Urine Urobilinogen Ur Leukocyte Esterase Urine RBC (Auto) Urine Microscopic WBC Ur Squamous Epith Cells Urine Bacteria Urine Sperm (Auto) Blood Type Blood Type Confirm O POSITIVE Antibody Screen BBK History Checked
[2017-05-06] MEDS ORDERED: Oxycodone/Acetaminophen 5/325 mg Tab PO PRN ×2 (14:01→18:07)
[2017-05-06] MEDS ORDERED: Lidocaine 1% Inj (20ml) ONE (14:54)
[2017-05-06] MEDS ORDERED: Bupivacaine 0.5% Inj(30mL) ONE (14:54)
[2017-05-06] MEDS ORDERED: Lactated Ringer's 1,000 ML IV ONE (17:10)
[2017-05-06] MEDS ORDERED: ceFAZolin 1 GM in Sodium Chloride 0.9% 100 ML IVPB ONE (17:22)
[2017-05-06] MEDS ORDERED: Bupivacaine 0.5% 50 ML IJ ONE (17:28)
[2017-05-06] MEDS ORDERED: Lidocaine 1% Inj (20ml) IJ ONE (17:28)
[2017-05-06] MEDS ORDERED: Sodium Chloride 0.9% 1,000 ML IV ONE (17:55)
--- NOTE | 2017-05-06 18:05 | PCM.SURG1 ---
Surgeon's Initial Post Op Note - Surgeon's Notes Surgeon: Dr. Matthew Lean Facilitator: Dr. Ramos Type of Anesthesia: IV Sedation, Local Anesthesia Administered By: Dr. Titus Pre-Operative Diagnosis: left hallux gangrene secondary to frostbite Operative Findings: see dictations. materials: 3-0 prolene; 20 cc of 1:1 .5% marcaine plain and 1% lidocaine plain Post-Operative Diagnosis: same Operation Performed: amputation of left hallux including all nonviable, necrotic soft tissue and bone Specimen/Specimens Removed: left hallux gangrene Estimated Blood Loss: EBL {In ML}: 30 Blood Products Given: N/A Drains Used: No Drains Post-Op Condition: Good Date of Surgery/Procedure: 05/06/17 Time of Surgery/Procedure: 17:00
[2017-05-06] MEDS ORDERED: Sodium Chloride 0.9% 1,000 ML IV SCH (18:30)
[2017-05-06] MEDS: Oxycodone/Acetaminophen 5/325 mg Tab PO PRN (20:09)
[2017-05-06] MEDS: Amoxicillin-Clav 875-125 mg Tab PO SCH (21:34)
[2017-05-06] MEDS ORDERED: Insulin Detemir 100 Units/ml Inj SC SCH (22:00)
[2017-05-07] MEDS: ceFAZolin IV 2 gm in Dextrose 2 GM/50 ML BAG IVPB SCH ×3 (01:59→16:00)
[2017-05-07] MEDS: Morphine 15 mg Immediate Release Tab PO SCH ×2 (02:00→15:52)
[2017-05-07] MEDS: COLCHICINE 0.6 MG CAPSULE PO SCH ×2 (02:01→15:58)
[2017-05-07] MEDS: Oxycodone/Acetaminophen 5/325 mg Tab PO PRN (05:26)
[2017-05-07 06:55] LABS: HEMOGLOBIN 11.5 g/dL (12.0-18.0); MEAN CELL VOLUME 85.2 fl (80.0-94.0); MEAN CORPUSCULAR HEMOGLOBIN 28.8 pg (27.0-31.0); MEAN CORPUSCULAR HGB CONC 33.9 g/dL (33.0-37.0); RBC 3.99 Mil/uL (4.40-5.90); WHITE BLOOD COUNT 11.2 K/uL (4.8-10.8)
[2017-05-07] MEDS ORDERED: ceFAZolin IV 2 gm in Dextrose 2 GM/50 ML BAG IVPB ONE (07:00)
[2017-05-07 07:38] LABS: BLOOD UREA NITROGEN 26 mg/dl (9-20); CALCIUM 8.7 mg/dL (8.4-10.2); GFR AFRICAN-AMERICAN > 60; GFR NON-AFRICAN AMERICAN 52
[2017-05-07] MEDS: Amoxicillin-Clav 875-125 mg Tab PO SCH ×2 (08:37→16:00)
[2017-05-07] MEDS: Insulin Lispro (humaLOG) 100 Units/ml Inj SC SCH ×3 (08:39→17:46)
[2017-05-07] MEDS ORDERED: VALSARTAN PO SCH (09:00)
[2017-05-07] MEDS ORDERED: Insulin Detemir 100 Units/ml Inj SC SCH (09:00)
[2017-05-07] MEDS ORDERED: Enoxaparin 40 mg Syringe SC SCH (09:00)
[2017-05-07] MEDS ORDERED: HYDROCHLOROTHIAZIDE PO SCH (09:00)
[2017-05-07] MEDS ORDERED: Patient's Own Med (Sitagliptin Phos/Metformin Hcl [Janumet Xr 100-1,000 Mg Tablet] 1 TAB) PO SCH (09:00)
--- NOTE | 2017-05-07 10:57 | CP.PCM.DIS ---
Provider - Provider Date of Admission: 05/06/17 14:04 Attending physician: Frederic Hastings DO Time Spent in preparation of Discharge (in minutes): 20 Hospital Course - Lab Results Lab Results: Most Recent Lab Values WBC 11.2 K/uL (4.8-10.8) H 05/07/17 05:55 RBC 3.99 Mil/uL (4.40-5.90) L 05/07/17 05:55 Hgb 11.5 g/dL (12.0-18.0) L 05/07/17 05:55 Hct 34.0 % (35.0-51.0) L 05/07/17 05:55 MCV 85.2 fl (80.0-94.0) 05/07/17 05:55 MCH 28.8 pg (27.0-31.0) 05/07/17 05:55 MCHC 33.9 g/dL (33.0-37.0) 05/07/17 05:55 RDW 15.0 % (11.5-14.5) H 05/07/17 05:55 Plt Count 296 K/uL (130-400) 05/07/17 05:55 MPV 8.9 fl (7.2-11.7) 05/06/17 12:20 Neut % (Auto) 73.2 % (50.0-75.0) 05/06/17 12:20 Lymph % (Auto) 14.8 % (20.0-40.0) L 05/06/17 12:20 [place] % (Auto) 8.1 % (0.0-10.0) 05/06/17 12:20 Eos % (Auto) 2.5 % (0.0-4.0) 05/06/17 12:20 Baso % (Auto) 1.4 % (0.0-2.0) 05/06/17 12:20 Neut # 7.8 K/uL (1.8-7.0) H 05/06/17 12:20 Lymph # 1.6 K/uL (1.0-4.3) 05/06/17 12:20 [place] # 0.9 K/uL (0.0-0.8) H 05/06/17 12:20 Eos # 0.3 K/uL (0.0-0.7) 05/06/17 12:20 Baso # 0.1 K/uL (0.0-0.2) 05/06/17 12:20 PT 10.5 Seconds (9.8-13.1) 05/06/17 12:20 INR 1.0 (0.9-1.2) 05/06/17 12:20 APTT 31.4 Seconds (25.6-37.1) 05/06/17 12:20 Sodium 136 mmol/l (132-148) 05/07/17 05:55 Potassium 4.2 MMOL/L (3.6-5.0) 05/07/17 05:55 Chloride 104 mmol/L (98-107) 05/07/17 05:55 Carbon Dioxide 23 mmol/L (22-30) 05/07/17 05:55 Anion Gap 13 (10-20) 05/07/17 05:55 BUN 26 mg/dl (9-20) H 05/07/17 05:55 Creatinine 1.4 mg/dl (0.8-1.5) 05/07/17 05:55 Est GFR ( Amer) > 60 05/07/17 05:55 Est GFR (Non-Af Amer) 52 05/07/17 05:55 POC Glucose (mg/dL) 107 mg/dL (65-110) 05/07/17 05:21 Random Glucose 117 mg/dL (75-110) H 05/07/17 05:55 Calcium 8.7 mg/dL (8.4-10.2) 05/07/17 05:55 Total Bilirubin 0.5 mg/dl (0.2-1.3) 05/06/17 12:20 AST 30 U/L (17-59) 05/06/17 12:20 ALT 43 U/L (21-72) 05/06/17 12:20 Alkaline Phosphatase 129 U/L (38-126) H 05/06/17 12:20 Total Protein 7.9 G/DL (6.3-8.2) 05/06/17 12:20 Albumin 4.0 g/dL (3.5-5.0) 05/06/17 12:20 Globulin 3.8 gm/dL (2.2-3.9) 05/06/17 12:20 Albumin/Globulin Ratio 1.0 (1.0-2.1) 05/06/17 12:20 Urine Color Yellow (YELLOW) 05/06/17 12:20 Urine Clarity Cloudy (Clear) 05/06/17 12:20 Urine pH 5.0 (5.0-8.0) 05/06/17 12:20 Ur Specific [place] 1.024 (1.003-1.030) 05/06/17 12:20 Urine Protein >=500 mg/dL (NEGATIVE) 05/06/17 12:20 Urine Glucose (UA) 150 mg/dL (Normal) 05/06/17 12:20 Urine Ketones Negative mg/dL (NEGATIVE) 05/06/17 12:20 Urine Blood Small (NEGATIVE) 05/06/17 12:20 Urine Nitrate Negative (NEGATIVE) 05/06/17 12:20 Urine Bilirubin Negative (NEGATIVE) 05/06/17 12:20 Urine Urobilinogen 0.2-1.0 mg/dL (0.2-1.0) 05/06/17 12:20 Ur Leukocyte Esterase Neg [place]/uL (Negative) 05/06/17 12:20 Urine RBC (Auto) 14 /hpf (0-3) H 05/06/17 12:20 Urine Microscopic WBC 4 /hpf (0-5) 05/06/17 12:20 Ur Squamous Epith Cells < 1 /hpf (0-5) 05/06/17 12:20 Urine Bacteria Many (<OCC) H 05/06/17 12:20 Urine Sperm (Auto) Many /hpf (NONE) H 05/06/17 12:20 Blood Type O POSITIVE 05/06/17 12:20 Blood Type Confirm O POSITIVE 05/06/17 14:08 Antibody Screen Negative 05/06/17 12:20 BBK History Checked No verified bt 05/06/17 12:20 - Hospital Course Hospital Course: 61 year old male patient with PMHx of DM, HTN, hypercholestrolemia, heart disease was admitted to the hospital for infected left hallux wet gangrene. Upon arrival to the hospital, patient was seen with active drainage from the site with extreme foul odor. X-rays of the left foot accompanied with clinical presentation confirmed active OM of the left hallux. Patient was brought to the OR and received an amputation of the hallux. Patient was also seen by physical therapy after the procedure. Patient is stable to be discharged home with continuation of his current Augmentin prescription. Patient to follow up at a wound care center as an outpatient. 1). Left hallux gangrene - Podiatry Consult Dr. Colón - left hallux amputation - L- foot x-rays - Findings consistent with 1st digit OM - Augmentin 875 PO BID - continue - Pain management 2). DM - Continue home meds - Aspart and Glargine - Sitagliptin 3). HTN - Continue home medication - Amlodipine 5 mg qd - Valsartan PO qd - HCTZ PO qd 4). DVT PPx: - Continue home medication - Plavix 75 mg qd - Aspirin 325 qd - Ambulating - Date & Time of H&P Date of H&P: 05/07/17 Time of H&P: 09:30 Discharge Exam - Head Exam Head Exam: ATRAUMATIC, NORMAL INSPECTION, NORMOCEPHALIC - Eye Exam Eye Exam: Normal appearance - ENT Exam ENT Exam: Normal Exam - Neck Exam Neck exam: Full Rom, Normal Inspection - Respiratory Exam Respiratory Exam: Clear to PA & Lateral, NORMAL BREATHING PATTERN, UNREMARKABLE. absent: Rales, Rhonchi, Wheezes - Cardiovascular Exam Cardiovascular Exam: REGULAR RHYTHM, +S1, +S2 - GI/Abdominal Exam GI & Abdominal Exam: Normal Bowel Sounds, Unremarkable. absent: Mass, Organomegaly - Rectal Exam Rectal Exam: Deferred - Extremities Exam Extremities exam: normal inspection, tenderness - Back Exam Back exam: FULL ROM, NORMAL INSPECTION - Neurological Exam Neurological exam: Alert, Oriented x3 - Psychiatric Exam Psychiatric exam: Normal Affect, Normal Mood - Skin Skin Exam: Erythema, Intact, Normal Color, Warm Discharge Plan - Follow Up Plan Condition: STABLE Disposition: HOME/ ROUTINE [facility]: [facility] [Outside]
--- NOTE | 2017-05-07 12:53 | RAD ---
PROCEDURE: Left Foot Radiographs. HISTORY: s/p left foot surgery COMPARISON: Left foot radiographs dated 04/29/2017. FINDINGS: There has been interval amputation of the 1st digit at the level of the distal portion of the proximal phalanx. Destructive lesions involving the 1st metatarsal head and base of 1st proximal phalanx are redemonstrated. Heterogeneity of the remaining metatarsals and phalanges is similar. No other interval changes are identified. IMPRESSION: Interval amputation of this 1st digit at the level of the distal portion of the proximal phalanx. No other significant interval changes.
--- NOTE | 2017-05-07 13:46 | CP.PCM.CON ---
History of Present Illness - History of Present Illness History of Present Illness: 61 year old male patient with PMHx of DM, HTN, hypercholestrolemia, heart disease presents to the ED for left hallux gangrene. Patient reports he has had problems with the left hallux for a while but the toe has gotten worse over 1 month. Patient reports that he was out shoveling the snow about a month ago from which he acquired howell bites on his toe and led to where he is now. Patient reports that there is increase drainage and odor to the big toe and the toe has gotten more dark and red overtime. Patient denies of having any recent F /N/V/C/SOB/CP/headache/diarrhea/constipation. Patient reports that he has had 2 heart attacks in the past and admits to having surgery. Patient reports that he has had stent placement in his heart as well as bilateral leg vessels. Patient states that he can walk few blocks before he gets tired. Patient denies of having any chest pain or shortness of breath during physical activity or while at rest. Patient denies of any other complains at this time. underwent amputation left hallux id consult requested for this PMHx: DM, HTN, Hypercholesteremia, Heart disease, Heart attacks x 2 PSHx: Multiple stents placement Allergies: N.K.D.A Medications: See chart SHx: Stopped smoking 8 months ago, denies EtOH or illicit drug usage FHx: Father: HTN, Hypercholestrolemia, due to DM complications; Mother: Alive Review of Systems - Constitutional Constitutional: As Per HPI - EENT Eyes: absent: As Per HPI, Blind Spots, Blurred Vision, Change in Vision, Decreased Night Vision, Diplopia, Discharge, Dry Eye, Exophthalmos, Floaters, Irritation, Itchy Eyes, Loss of Peripheral Vision, Pain, Photophobia, Requires Corrective Lenses, Sees Flashes, Spots in Vision, Tunnel Vision, Other Visual Disturbances, Loss of Vision, Other Ears: absent: As Per HPI, Decreased Hearing, Ear Discharge, Ear Pain, Tinnitus, Abnormal Hearing, Disequilibrium, Dizziness, Other Nose/Mouth/Throat: absent: As Per HPI, Epistaxis, Nasal Congestion, Nasal Discharge, Nasal Obstruction, Nasal Trauma, Nose Pain, Post Nasal Drip, Sinus Pain, Sinus Pressure, Bleeding Gums, Change in Voice, Dental Pain, Dry Mouth, Dysphagia, Halitosis, Hoarsness, Lip Swelling, Mouth Lesions, Mouth Pain, Odynophagia, Sore Throat, Throat Swelling, Tongue Swelling, Facial Pain, Neck Pain, Neck Mass, Other - Cardiovascular Cardiovascular: absent: As Per HPI, Acrocyanosis, Chest Pain, Chest Pain at Rest , Chest Pain with Activity, Claudication, Diaphoresis, Dyspnea, Dyspnea on Exertion, Edema, Irregular Heart Rhythm, Pain Radiating to Arm/Neck/Jaw, Leg Edema, Leg Ulcers, Lightheadedness, Orthopnea, Palpitations, Paroxysmal Nocturnal Dyspnea, Pedal Edema, Radiating Pain, Rapid Heart Rate, Slow Heart Rate, Syncope, Other - Respiratory Respiratory: absent: As Per HPI, Cough, Dyspnea, Hemoptysis, Dyspnea on Exertion , Wheezing, Snoring, Stridor, Pain on Inspiration, Chest Congestion, Excessive Mucous Production, Change in Mucous Color, Pain with Coughing, Other - Gastrointestinal Gastrointestinal: absent: As Per HPI, Abdominal Pain, Belching, Bloating, Change in Bowel Habits, Change in Stool Character, Coffee Ground Emesis, Constipation, Cramping, Diarrhea, Dyspepsia, Dysphagia, Early Satiety, Excessive Flatus, Fecal Incontinence, Heartburn, Hematemesis, Hematochezia, Loose Stools, Melena, Nausea, Odynophagia, Temesmus, Vomiting, Other - Genitourinary Genitourinary: absent: As Per HPI, Change in Urinary Stream, Difficulty Urinating, Dysuria, Flank Pain, Hematuria, Pyuria, Nocturia, Urinary Incontinence, Urinary Frequency, Urinary Hesitance, Urinary Urgency, Voiding Freq/Small Amts, Freq UTI, Hx Renal/Bladder Calculi, Hx /Renal Surgery, Bladder Distension, Other - Musculoskeletal Musculoskeletal: As Per HPI - Integumentary Integumentary: As Per HPI - Neurological Neurological: absent: As Per HPI, Abnormal Gait, Abnormal Hearing, Abnormal Movements, Abnormal Speech, Behavioral Changes, Burning Sensations, Confusion, Convulsions, Disequilibrium, Dizziness, Numbness, Focal Weakness, Frequent Falls , Headaches, Lack of Coordination, Loss of Vision, Memory Loss, Paresthesias, Radicular Pain, Restless Legs, Sensory Deficit, Syncope, Tingling, Tremor, Vertigo, Weakness, Other Visual Disturbances, Other - Psychiatric Psychiatric: absent: As Per HPI, Abnormal Sleep Pattern, Anhedonia, Anxiety, Auditory Hallucinations, Behavioral Changes, Change in Appetite, Change in Libido, Confusion, Depression, Difficulty Concentrating, Hallucinations, Homicidal Ideation, Hopelessness, Irritability, Memory Loss, Mood Swings, Panic Attacks, Paranoia, Suicidal Ideation, Visual Hallucinations, Tactile Hallucinations, Other - Endocrine Endocrine: absent: As Per HPI, Change in Body Appearance, Change in Libido, Cold Intolorance, Deepening of Voice, Excessive Sweating, Fatigue, Flushing, Heat Intolorance, Increase in Ring/Shoe/Hat Size, Palpitations, Polydipsia, Polyphagia, Polyuria, Other - Hematologic/Lymphatic Hematologic: absent: As Per HPI, Easy Bleeding, Easy Bruising, Lymphadenopathy, Other Past Patient History - Infectious Disease Hx of Infectious Diseases: None - Tetanus Immunizations Tetanus Immunization: Unknown - Past Medical History & Family History Past Medical History?: Yes - Past Social History Smoking Status: Light Smoker < 10 Cigarettes Daily - CARDIAC Hx Hypercholesterolemia: Yes Hx Hypertension: Yes Hx Peripheral Edema: Yes - PULMONARY Hx Chronic Obstructive Pulmonary Disease (COPD): Yes (per old chart but pt denies) - NEUROLOGICAL Hx Neurological Disorder: No - HEENT Hx HEENT Problems: No - RENAL Hx Chronic Kidney Disease: No - ENDOCRINE/METABOLIC Hx Endocrine Disorders: Yes Hx Diabetes Mellitus Type 2: Yes - HEMATOLOGICAL/ONCOLOGICAL Hx Human Immunodeficiency Virus (HIV): No - INTEGUMENTARY Hx Dermatological Problems: Yes (NON HEALING ULCER LEFT FOOT) Hx Cellulitis: Yes - MUSCULOSKELETAL/RHEUMATOLOGICAL Hx Musculoskeletal Disorders: No Hx Falls: No - GASTROINTESTINAL Hx Gastrointestinal Disorders: No - GENITOURINARY/GYNECOLOGICAL Hx Genitourinary Disorders: No - PSYCHIATRIC Hx Psychophysiologic Disorder: No Hx Emotional Abuse: No Hx Physical Abuse: No Hx Substance Use: No - SURGICAL HISTORY Hx Coronary Stent: Yes (x6) - ANESTHESIA Hx Anesthesia: Yes Hx Anesthesia Reactions: No Hx Malignant Hyperthermia: No Meds Allergies/Adverse Reactions: Allergies Allergy/AdvReac Type Severity Reaction Status Date / Time No Known Allergies Allergy Verified 04/15/17 12:42 - Medications Medications: Current Medications Acetaminophen (Tylenol 325mg Tab) 325 mg PO Q4 PRN PRN Reason: Pain, Mild (1-3) Amlodipine Besylate (Norvasc) 5 mg PO DAILY [facility] Last Admin: 05/07/17 08:41 Dose: 5 mg Amoxicillin/Clavulanate Potassium (Augmentin 875 Mg-125 Mg Tab) 1 tab PO BID [facility] PRN Reason: Protocol Last Admin: 05/07/17 08:37 Dose: 1 tab Colchicine (Colchicine) 0.6 mg PO Q12H [facility] Last Admin: 05/07/17 02:01 Dose: 0.6 mg Enoxaparin Sodium (Lovenox) 40 mg SC DAILY [facility] PRN Reason: Protocol Last Admin: 05/07/17 08:41 Dose: 40 mg Hydrochlorothiazide (Microzide) 12.5 mg PO DAILY [facility] Last Admin: 05/07/17 08:41 Dose: 12.5 mg Sodium Chloride (Sodium Chloride 0.9%) 1,000 mls @ 50 mls/hr IV .Q20H [facility] Stop: 05/07/17 18:27 Cefazolin Sodium/Dextrose (Ancef Iv 2 Gm Duplex) 2 gm in 50 mls @ 50 mls/hr IVPB Q8 [facility] PRN Reason: Protocol Last Admin: 05/07/17 08:36 Dose: 50 mls/hr Insulin Detemir (Levemir) 20 units SC QAM [facility] Last Admin: 05/07/17 08:40 Dose: 20 units Insulin Detemir (Levemir) 30 units SC HS [facility] Last Admin: 05/06/17 21:34 Dose: 30 units Insulin Human Lispro (Humalog) 10 units SC ACTID [facility] Last Admin: 05/07/17 11:23 Dose: 10 units Metformin HCl (Glucophage) 500 mg PO BID [facility] Last Admin: 05/07/17 08:39 Dose: 500 mg Morphine Sulfate (Morphine Immediate Release Tab) 15 mg PO Q12H [facility] Last Admin: 05/07/17 02:00 Dose: 15 mg Oxycodone/Acetaminophen (Percocet 5/325 Mg Tab) 1 tab PO Q4 PRN PRN Reason: Pain, moderate (4-7) Stop: 05/09/17 18:08 Oxycodone/Acetaminophen (Percocet 5/325 Mg Tab) 2 tab PO Q4 PRN PRN Reason: Pain, severe (8-10) Stop: 05/09/17 18:08 Last Admin: 05/07/17 05:26 Dose: 2 tab Sitagliptin Phosphate (Januvia) 100 mg PO DAILY [facility] Last Admin: 05/07/17 08:40 Dose: 100 mg Valsartan (Diovan) 320 mg PO DAILY [facility] Last Admin: 05/07/17 08:38 Dose: 320 mg Physical Exam - Constitutional Appears: Non-toxic, Chronically Ill - Head Exam Head Exam: NORMOCEPHALIC - Eye Exam Eye Exam: PERRL - ENT Exam ENT Exam: Mucous Membranes Dry, Normal External Ear Exam - Neck Exam Neck exam: Negative for: Lymphadenopathy - Respiratory Exam Respiratory Exam: Decreased Breath Sounds, Clear to Auscultation Bilateral - Cardiovascular Exam Cardiovascular Exam: REGULAR RHYTHM - GI/Abdominal Exam GI & Abdominal Exam: Diminished Bowel Sounds, Soft. absent: Tenderness - Rectal Exam Rectal Exam: Deferred - Exam Exam: NORMAL INSPECTION - Extremities Exam Extremities exam: Positive for: pedal edema, tenderness, pedal pulses present. Negative for: calf tenderness - Back Exam Back exam: absent: CVA tenderness (L), CVA tenderness (R) - Neurological Exam Neurological exam: Alert, CN II-XII Intact, Oriented x3, Reflexes Normal - Psychiatric Exam Psychiatric exam: Normal Mood - Skin Skin Exam: Dry Results - Vital Signs Recent Vital Signs: Last Vital Signs Temp 98.1 F 05/07/17 07:49 Pulse 67 05/07/17 09:40 Resp 20 05/07/17 07:49 BP 119/63 05/07/17 08:41 Pulse Ox 97 05/07/17 09:40 - Labs Result Diagrams: 05/07/17 05:55 05/07/17 05:55 Labs: Laboratory Results - last 24 hr 05/06/17 05/06/17 05/06/17 13:46 14:08 15:46 WBC RBC Hgb Hct MCV MCH MCHC RDW Plt Count Sodium Potassium 4.8 Chloride Carbon Dioxide Anion Gap BUN Creatinine Est GFR ( Amer) Est GFR (Non-Af Amer) POC Glucose (mg/dL) 133 H Random Glucose Calcium Blood Type Confirm O POSITIVE 05/06/17 05/06/17 05/07/17 18:03 21:19 05:21 WBC RBC Hgb Hct MCV MCH MCHC RDW Plt Count Sodium Potassium Chloride Carbon Dioxide Anion Gap BUN Creatinine Est GFR ( Amer) Est GFR (Non-Af Amer) POC Glucose (mg/dL) 111 H 140 H 107 Random Glucose Calcium Blood Type Confirm 05/07/17 05/07/17 05/07/17 05:55 05:55 11:02 WBC 11.2 H RBC 3.99 L Hgb 11.5 L Hct 34.0 L MCV 85.2 MCH 28.8 MCHC 33.9 RDW 15.0 H Plt Count 296 Sodium 136 Potassium 4.2 Chloride 104 Carbon Dioxide 23 Anion Gap 13 BUN 26 H Creatinine 1.4 Est GFR ( Amer) > 60 Est GFR (Non-Af Amer) 52 POC Glucose (mg/dL) 118 H Random Glucose 117 H Calcium 8.7 Blood Type Confirm Assessment & Plan (1) Diabetic foot Status: Acute (2) CAD (coronary artery disease) Status: Acute - Assessment and Plan (Free Text) Assessment: s/p amp hallux left foot cont rx as ordered follow up as out pt
[2017-05-07] MEDS ORDERED: Dextrose 50% SYRINGE Inj (50 ml) ONE (15:51)
[2017-05-07] MEDS ORDERED: Dextrose 50% SYRINGE Inj (50 ml) IVP ONE (15:53)
[2017-05-07 16:05] VITALS: BP 103/66; PULSE 74; RESP 18; TEMP 97.4; O2SAT 99
--- NOTE | 2017-05-08 08:46 | OP ---
PROCEDURE DATE: 05/06/2017 PREOPERATIVE DIAGNOSIS: Left hallux gangrene secondary to frostbite damage. POSTOPERATIVE DIAGNOSIS: Left hallux gangrene secondary to frostbite damage. PROCEDURE: Partial amputation of left hallux with removal of non-viable necrotic soft tissue and bone. SURGEON: Jacek Mckeon DPM HEAVY MACHINERY OPERATOR: Gabe Ramos, PGY-1 ANESTHESIOLOGIST: Jono Titus MD TYPE OF ANESTHESIA: IV sedation with local. INDICATIONS: The patient is a 61-year-old male with the above diagnosis. The patient has exhausted all conservative treatment at this time and now requires surgical intervention. The patient signed the consent after careful explanation of risks, benefits, complications and alternatives for surgical procedure. No guarantees were given nor implied. N.p.o. status was confirmed prior to taking the patient to the OR. PREPARATION: The patient was brought into the operating room and placed on the operating room table in a supine position. Time-out was performed for identification of the correct patient and procedure. After induction of IV sedation, a total of 20 mL of 1:1 mixture of 0.5% Marcaine plain and 1% lidocaine plain was administered in a local block fashion to the left first ray and hallux. The left lower extremity was then prepped and draped in a normal sterile manner and the procedure began. No tourniquet was used during the procedure. Procedure #1: Attention was then turned to the left hallux where it was noted that gangrenous changes had occurred to the patient's distal hallux from the level of bone approximately located at the interphalangeal joint distally. It was noted at the most proximal aspect of the gangrenous changes that there was a wet soupy zamarripa-green sloughing of the soft tissue with malodor. There was also erythematous changes surrounding all gangrenous changes seen on the hallux. All of these dermatological changes were secondary to the patient shoveling snow while in his surgical shoe with only a sock to cover his toe, thereby causing frostbite and the gangrenous changes and subsequent necrotic changes that were seen. A towel clamp was first used and clamped to the most distal aspect of the hallux and then using a fresh #15 blade, a fish-mouth incision was made just proximal to where the gangrenous changes could be seen and what appeared to be healthy viable tissue. The incision was made down to the level of bone and the hallux was partially amputated at the level of the interphalangeal joint. Using Adson-Brown pickups and the same #15 blade, all soft tissue was inspected and any non-viable tissue was removed from the surgical site. A bone cutter was then utilized to cut and excise the cartilage of the left hallux proximal phalanx. All bony and soft tissue specimens were then sent to pathology for examination. The surgical site was again examined to make sure that all non-viable soft tissue and non-viable bone had been removed and then the surgical site was flushed with copious amounts of normal sterile saline. The surgical site was then closed with 3-0 Prolene superficial sutures and was dressed with Xeroform, dry sterile dressing and a light ISIDRA. POSTOPERATIVE CONDITION: The patient tolerated the anesthesia and procedure well and was escorted to the recovery room with vital signs stable and neurovascular status intact to the left lower extremity. The patient is to remain weightbearing as tolerated to the heel of his lower extremity and will remain in the hospital for observation until tomorrow, at which time he will be discharged and will follow up with Dr. Mckeon in his private office at his next regularly scheduled appointment. Gabe Ramos DPM Jacek Mckeon DPM [email or web address]
--- NOTE | 2017-05-08 09:52 | CARD ---
APPROVED REPORT EKG Measurement Heart [id number] <Conclusion> Normal sinus rhythm Possible Left atrial enlargement Left axis deviation Right bundle branch block Abnormal ECG
== END 2017-05-07 18:00 | disposition home or self-care (01) | DRG 256 ==
LOC: H.ER 10:19 → H.ERHOLD 14:04 → H.MEDSURG1 19:48
PROVIDERS: ADMIT Internal Medicine; ATTEND Internal Medicine
PROC: 0Y6Q0Z0 Detachment at Left 1st Toe, Complete, Open Approach (ICD-10-PCS; principal; 2017-05-07)
DX: E11.52 Type 2 diabetes mellitus with diabetic peripheral angiopathy with gangrene (principal); E11.40 Type 2 diabetes mellitus with diabetic neuropathy, unspecified; M86.172 Other acute osteomyelitis, left ankle and foot; E11.69 Type 2 diabetes mellitus with other specified complication; E11.65 Type 2 diabetes mellitus with hyperglycemia; I25.10 Atherosclerotic heart disease of native coronary artery without angina pectoris; I10 Essential (primary) hypertension; E78.00 Pure hypercholesterolemia, unspecified; Z95.5 Presence of coronary angioplasty implant and graft; I25.2 Old myocardial infarction; Z87.891 Personal history of nicotine dependence; Z79.4 Long term (current) use of insulin; Z79.82 Long term (current) use of aspirin

== ENCOUNTER 2017-05-24 22:31 | Observation (INO) | payer MEDICARE ==
[2017-05-24 22:32] VITALS: BMI 32.7
--- NOTE | 2017-05-24 23:30 | ED PDOC ---
HPI: SOB/CHF/COPD Time Seen by Provider: 05/24/17 22:59 Chief Complaint (Nursing): Respiratory Distress Onset/Duration Of Symptoms: Days Current Symptoms Are (Timing): Still Present Associated Symptoms: Productive Cough Additional Complaint(s): 61 yo ,m, PMhx/o HTN, DM, CAD ( 7 coronary stents), PVD ( 2 stents legs), HLD, Heart attack x 2, recent discharged 17 days ago for left toe amputation presents to ED c/o sudden SOB started started 30 minutes ago while he was sleeping. Patient reports similar events for the last 3 nights (PND). He also reports productive cough with white-yellow expectoration started 3 days ago associated with runny nose, nasal congestion and chest tightness. He denies fever, wheezing, SOB during the day, n,v,abd pain, diarrhea, dysuria, hematuria , myalgia, chills, headache, dizziness. Patient reports been able to walk only 1 block and gets SOB. Reports + Sick contact sister with cold symptoms On Ed room patient able to talk full sentences, not in respiratory distress, breathing room air 93%, noted with fever 100.8. Past Medical History Vital Signs: Last Vital Signs Temp 100.8 F H 05/24/17 23:44 Pulse 84 05/25/17 01:10 Resp 20 05/24/17 23:03 BP 142/85 05/25/17 01:10 Pulse Ox 93 L 05/25/17 01:50 - Medical History PMH: CAD, COPD (per old chart but pt denies), Diabetes, HTN, Hypercholesterolemia, Peripheral Edema Denies: HIV, Chronic Kidney Disease - Surgical History Surgical History: Coronary Stent (x6) - Family History Family History: States: Hypertension - Home Medications Home Medications: Ambulatory Orders Medication Instructions Recorded Amoxicillin/Clavulanate [Augmentin 1 tab PO BID 05/06/17 875 MG-125 MG Tab] Aspirin 325 mg PO DAILY 05/06/17 Clopidogrel [Plavix] 75 mg PO DAILY 05/06/17 Insulin Aspart, Recombinant 10 unit SC DAILY 05/06/17 [Novolog] Insulin Glargine, Recombina 15 unit SC HS 05/06/17 [Lantus] Insulin Glargine, Recombina 15 unit SC QAM 05/06/17 [Lantus] Morphine [Morphine Immediate 15 mg PO Q12H 05/06/17 Release Tab] Valsartan/Hydrochlorothiazide 1 tab PO DAILY 05/06/17 [Diovan Hct 320-12.5 mg Tab] amLODIPine [Norvasc] 5 mg PO DAILY 05/06/17 oxyCODONE/Acetaminophen [Percocet 1 tab PO Q12H PRN 05/06/17 5/325 mg Tab] - Allergies Allergies/Adverse Reactions: Allergies Allergy/AdvReac Type Severity Reaction Status Date / Time No Known Allergies Allergy Verified 05/24/17 22:46 Curb-65 Severity Score - CURB-65 Severity Score Confusion: No Respiratory Rate greater than/equal to 30: No Systolic BP <90 or Diastolic BP less than/equal 60mmHg: No Age >64: No Curb-65 Score: 0 Percentage 30-day mortality: 0.6% Wells Criteria for PE - Wells Criteria for Pulmonary Embolism Clinical Signs and Symptoms of DVT: No Heart Rate >100: No Immobilization at least 3 days;Surgery previous 4 weeks: No Previous, objectively diagnosed PE or DVT: No Hemoptysis: No Malignancy w/treatment within 6 months, or palliative: No Total Score: 0 Review of Systems Constitutional: Negative for: Weakness, Malaise Respiratory: Positive for: Cough, Shortness of Breath, Sputum Gastrointestinal: Negative for: Nausea, Vomiting Neurological: Negative for: Weakness, Numbness Physical Exam - Physical Exam Appears: Positive for: No Acute Distress Head Exam: Positive for: ATRAUMATIC, NORMOCEPHALIC Skin: Positive for: Normal Color Eye Exam: Positive for: Normal appearance Neck: Positive for: Normal Cardiovascular/Chest: Positive for: Regular Rate, Rhythm. Negative for: Chest Non Tender Respiratory: Positive for: Rales (scattered rales left lung base). Negative for : Rhonchi, Wheezing Gastrointestinal/Abdominal: Positive for: Bowel Sounds, Soft. Negative for: Tenderness, Rebound Back: Positive for: Normal Inspection Neurologic/Psych: Positive for: Alert, Oriented - Laboratory Results Result Diagrams: 05/24/17 23:54 05/24/17 23:54 - ECG O2 Sat by Pulse Oximetry: 93 - Progress ED Course And Treament: Patient evaluated for PND for the last 3 days with URI symptoms Impression: SOB to r/o Pneumonia, Influenza, HAP, CHF exacerbation Plan Labs: CBC, CMP, ProBnp, Pt/INR/PTT, Influenza test, UA, Mg, Phosp Imaging: EKG, CXR. Meds: Tylenol, Tamiflu 23:25 PM Labs reviewed CBC: WBC 12.3 VBG normal, BUN/CR 23/1.3 ProBNP 3440 EKG: NSR, RBBB, left axis deviation. CXR: Signs of congestion, B [place] lines, flow cephalization. infiltrates scattered right base. pending final report Meds: levaquin Patient will be admitted for CHF, PNA Medical Decision Making Medical Decision Makin: 40 AM Patient reports feeling better with O2 NC No respiratory distress Patient will be admitted by Hospitalist service por PNA, CHF. Dr Han aware. Disposition - Disposition
[2017-05-24 23:59] LABS: BASO # 0.1 K/uL (0.0-0.2); BASO % 1.1 % (0.0-2.0); EOS # 0.4 K/uL (0.0-0.7); EOS % 3.1 % (0.0-4.0); HEMOGLOBIN 10.1 g/dL (12.0-18.0); LYMPH # 1.1 K/uL (1.0-4.3); LYMPH % 9.3 % (20.0-40.0); MEAN CELL VOLUME 83.7 fl (80.0-94.0); MEAN CORPUSCULAR HEMOGLOBIN 28.1 pg (27.0-31.0); MEAN CORPUSCULAR HGB CONC 33.6 g/dL (33.0-37.0); MONO % 8.3 % (0.0-10.0); NEUT # 9.7 K/uL (1.8-7.0); NEUT % 78.2 % (50.0-75.0); PLATELET COUNT 345 K/uL (130-400); RBC 3.59 Mil/uL (4.40-5.90); RED CELL DISTRIBUTION WIDTH 14.8 % (11.5-14.5); WHITE BLOOD COUNT 12.3 K/uL (4.8-10.8)
[2017-05-25 00:11] LABS: VENOUS BLOOD GAS BASE EXCESS -3.1 mmol/L (0.0-2.0); VENOUS BLOOD GAS PCO2 35 mmHg (40-60); VENOUS BLOOD GAS PO2 36 mm/Hg (30-55); VENOUS BLOOD PH 7.39 (7.32-7.43)
[2017-05-25 00:19] LABS: B-TYPE NATRIURETIC PEPTIDE 3440 pg/ml (0-900)
[2017-05-25] MEDS ORDERED: Nitroglycerin 2% Ointment Foilpak UD TOP STA (00:21)
[2017-05-25] MEDS ORDERED: Nitroglycerin 2% Ointment Foilpak UD TOP ONE (00:40)
[2017-05-25 00:41] LABS: ALB/GLOB RATIO 1.1 (1.0-2.1); ALBUMIN 3.8 g/dL (3.5-5.0); ALT/SGPT 35 U/L (21-72); AST/SGOT 28 U/L (17-59); BLOOD UREA NITROGEN 23 mg/dl (9-20); CALCIUM 8.3 mg/dL (8.4-10.2); GFR AFRICAN-AMERICAN > 60; GFR NON-AFRICAN AMERICAN 56; MAGNESIUM 1.7 MG/DL (1.6-2.3)
[2017-05-25] MEDS ORDERED: levoFLOXacin 750 mg in D5W 750 MG/150 ML BAG IVPB STA (00:48)
[2017-05-25] MEDS ORDERED: Oxycodone/Acetaminophen 5/325 mg Tab PO PRN (01:07)
[2017-05-25] MEDS ORDERED: Albuterol-Ipratrop 3 mg / 0.5 (3 ml) UD INH PRN (01:10)
[2017-05-25 01:16] LABS: PARTIAL THROMBOPLASTIN TIME 31.2 Seconds (25.6-37.1); PROTHROMBIN TIME 11.6 Seconds (9.8-13.1)
--- NOTE | 2017-05-25 01:18 | CP.PCM.HP ---
History of Present Illness - History of Present Illness History of Present Illness: CC: SOB HPI: This is a 61 y/o male with MHx significant for CAD (mult stents), PVD, DM2 , HTN, and HTN who presents with SOB. He was actually admitted here just over two weeks ago for a L toe amputation. Today he developed acute onset SOB about 1 /2 hour prior to arrival. He was woken up from sleep by these symptoms. He notes similar symptoms over the past 3 nights. He has also developed URTI from about 2-3 days ago, including a productive cough. Here he was noted to have fever > 100.4. Denies myalgias. Denies n/v/d. Patient states he was previously on lasix but decided to d/c on his own because he was going to the bathroom ' too much'. ROS: 14 systems reviewed, negative other than HPI MHx: DM2, HTN, HLD, CAD, PVD -- has had several MA in the past SHx: Multiple cardiac and peripheral stents Allergies: NKDA Medications: As per med rec Family Hx: There is HTN/HLD/DM2 on father's side Social Hx: Lives with family, did smoke until about 8-9 months ago, no EtOH Surrogate Decision Maker: Present on Admission - Present on Admission Any Indicators Present on Admission: No Past Patient History - Infectious Disease Hx of Infectious Diseases: None - Tetanus Immunizations Tetanus Immunization: Unknown - Past Medical History & Family History Past Medical History?: Yes - Past Social History Smoking Status: Light Smoker < 10 Cigarettes Daily - CARDIAC Hx Hypercholesterolemia: Yes Hx Hypertension: Yes Hx Peripheral Edema: Yes - PULMONARY Hx Chronic Obstructive Pulmonary Disease (COPD): Yes (per old chart but pt denies) - NEUROLOGICAL Hx Neurological Disorder: No - HEENT Hx HEENT Problems: No - RENAL Hx Chronic Kidney Disease: No - ENDOCRINE/METABOLIC Hx Endocrine Disorders: Yes Hx Diabetes Mellitus Type 2: Yes - HEMATOLOGICAL/ONCOLOGICAL Hx Human Immunodeficiency Virus (HIV): No - INTEGUMENTARY Hx Dermatological Problems: Yes (NON HEALING ULCER LEFT FOOT) Hx Cellulitis: Yes - MUSCULOSKELETAL/RHEUMATOLOGICAL Hx Musculoskeletal Disorders: No Hx Falls: No - GASTROINTESTINAL Hx Gastrointestinal Disorders: No - GENITOURINARY/GYNECOLOGICAL Hx Genitourinary Disorders: No - PSYCHIATRIC Hx Psychophysiologic Disorder: No Hx Emotional Abuse: No Hx Physical Abuse: No Hx Substance Use: No - SURGICAL HISTORY Hx Coronary Stent: Yes (x6) - ANESTHESIA Hx Anesthesia: Yes Hx Anesthesia Reactions: No Hx Malignant Hyperthermia: No Meds Allergies/Adverse Reactions: Allergies Allergy/AdvReac Type Severity Reaction Status Date / Time No Known Allergies Allergy Verified 05/24/17 22:46 Physical Exam - Constitutional Appears: No Acute Distress - Head Exam Head Exam: ATRAUMATIC, NORMOCEPHALIC - Eye Exam Eye Exam: EOMI, PERRL - ENT Exam ENT Exam: Mucous Membranes Moist - Neck Exam Neck exam: Positive for: Full Rom - Respiratory Exam Respiratory Exam: Rales, NORMAL BREATHING PATTERN - Cardiovascular Exam Cardiovascular Exam: REGULAR RHYTHM, +S1, +S2 - GI/Abdominal Exam GI & Abdominal Exam: Normal Bowel Sounds, Soft - Extremities Exam Extremities exam: Positive for: full ROM, normal inspection, pedal edema - Neurological Exam Neurological exam: Alert, CN II-XII Intact, Oriented x3 - Psychiatric Exam Psychiatric exam: Normal Affect, Normal Mood - Skin Skin Exam: Dry, Warm Results - Vital Signs Recent Vital Signs: Last Vital Signs Temp 100.8 F H 05/24/17 23:44 Pulse 84 05/25/17 01:10 Resp 20 05/24/17 23:03 BP 142/85 05/25/17 01:10 Pulse Ox 93 L 05/24/17 23:47 - Labs Result Diagrams: 05/24/17 23:54 05/24/17 23:54 Labs: Laboratory Results - last 24 hr 05/24/17 05/24/17 05/24/17 00:07 23:02 23:54 WBC RBC Hgb Hct MCV MCH MCHC RDW Plt Count MPV Neut % (Auto) Lymph % (Auto) [place] % (Auto) Eos % (Auto) Baso % (Auto) Neut # (Auto) Lymph # (Auto) [place] # (Auto) Eos # (Auto) Baso # (Auto) PT INR APTT pO2 36 VBG pH 7.39 VBG pCO2 35 L VBG HCO3 21.7 VBG Total CO2 22.3 VBG O2 Sat (Calc) 79.4 H VBG Base Excess -3.1 L VBG Potassium 3.9 Sodium 132.0 133 Chloride 101.0 103 Glucose 233 H Lactate 0.9 FiO2 21.0 Potassium 3.8 Carbon Dioxide 18 L Anion Gap 16 BUN 23 H Creatinine 1.3 Est GFR ( Amer) > 60 Est GFR (Non-Af Amer) 56 POC Glucose (mg/dL) 201 H Random Glucose 223 H Calcium 8.3 L Phosphorus 2.8 Magnesium 1.7 Total Bilirubin 0.6 AST 28 ALT 35 Alkaline Phosphatase 119 Troponin I 0.0860 NT-Pro-B Natriuret Pep 3440 H Total Protein 7.3 Albumin 3.8 Globulin 3.6 Albumin/Globulin Ratio 1.1 Venous Blood Potassium 3.9 Influenza Typ A,B (EIA) 05/24/17 05/24/17 05/24/17 23:54 23:54 23:54 WBC 12.3 H RBC 3.59 L Hgb 10.1 L Hct 30.0 L MCV 83.7 MCH 28.1 MCHC 33.6 RDW 14.8 H Plt Count 345 MPV 8.0 Neut % (Auto) 78.2 H Lymph % (Auto) 9.3 L [place] % (Auto) 8.3 Eos % (Auto) 3.1 Baso % (Auto) 1.1 Neut # (Auto) 9.7 H Lymph # (Auto) 1.1 [place] # (Auto) 1.0 H Eos # (Auto) 0.4 Baso # (Auto) 0.1 PT 11.6 INR 1.0 APTT 31.2 pO2 VBG pH VBG pCO2 VBG HCO3 VBG Total CO2 VBG O2 Sat (Calc) VBG Base Excess VBG Potassium Sodium Chloride Glucose Lactate FiO2 Potassium Carbon Dioxide Anion Gap BUN Creatinine Est GFR ( Amer) Est GFR (Non-Af Amer) POC Glucose (mg/dL) Random Glucose Calcium Phosphorus Magnesium Total Bilirubin AST ALT Alkaline Phosphatase Troponin I NT-Pro-B Natriuret Pep Total Protein Albumin Globulin Albumin/Globulin Ratio Venous Blood Potassium Influenza Typ A,B (EIA) Negative for flu a/b - EKG Data EKG Interpreted by: Myself EKG shows normal: Sinus rhythm - EKG Data EKG comments: RBBB, LAD - Imaging and Cardiology Chest x-ray Status: Image reviewed by me (possible opacity on L, some evidence of vascular congestion) Assessment & Plan (1) CAP (community acquired pneumonia) Assessment and Plan: 61 y/o male presenting with exac of CHF in setting of possible CAP. 1) CAP -- patient was in the hospital recently, so cannot r/o HCAP -For now, will continue to cover with IV LVQ as started in ER; if deteriorates, will cover with Vanc/Zosyn for HCAP -Duonebs -Tylenol for fever -f/u cultures 2) CHF/CAD/HLD -tele -serial trops -Cont diuresis with lasix 40 mg IV daily for now -Cont nitro paste -Cont ASA, Statin, Plavix -Check Echo as patient has not had one for past 2 years 3) DM2 -Accuchecks ACHS -Continue LA insulin regimen -SSI -DM diet 4) HTN -- cont home medications 5) DVT PPx -- SQ Lovenox Status: Acute (2) CHF (congestive heart failure) Status: Acute (3) CAD (coronary artery disease) Status: Acute (4) DM2 (diabetes mellitus, type 2) Status: Acute (5) Hypertension Status: Acute (6) DVT prophylaxis Status: Acute
[2017-05-25 01:40] LABS: BASOPHIL 2 % (0-2); LYMPHOCYTE 10 % (20-50); MONOCYTE 10 % (0-10); NEUTROPHIL 78 % (42-75); TOTAL CELLS COUNTED 100
[2017-05-25 01:41] LABS: PLATELET ESTIMATE NORMAL (NORMAL)
[2017-05-25 01:42] LABS: HYPOCHROMIC SLIGHT
[2017-05-25] MEDS ORDERED: levoFLOXacin 750 mg in D5W 750 MG/150 ML BAG IVPB ONE ×2 (02:01→08:42)
[2017-05-25] MEDS ORDERED: Oxycodone/Acetaminophen 5/325 mg Tab ONE (04:34)
[2017-05-25 07:50] VITALS: TEMP 98.4
[2017-05-25 08:34] LABS: HEMOGLOBIN 10.2 g/dL (12.0-18.0); MEAN CELL VOLUME 83.2 fl (80.0-94.0); MEAN CORPUSCULAR HEMOGLOBIN 28.9 pg (27.0-31.0); MEAN CORPUSCULAR HGB CONC 34.7 g/dL (33.0-37.0); RBC 3.52 Mil/uL (4.40-5.90); RED CELL DISTRIBUTION WIDTH 14.9 % (11.5-14.5); WHITE BLOOD COUNT 9.9 K/uL (4.8-10.8)
[2017-05-25] MEDS ORDERED: levoFLOXacin 500 mg in D5W 500 MG/100 ML BAG IVPB ONE (08:37)
[2017-05-25 08:42] LABS: BLOOD UREA NITROGEN 22 mg/dl (9-20); CALCIUM 8.6 mg/dL (8.4-10.2); GFR AFRICAN-AMERICAN > 60; GFR NON-AFRICAN AMERICAN 56
[2017-05-25] MEDS: Insulin Lispro (humaLOG) 100 Units/ml Inj SC SCH ×2 (08:48→12:50)
[2017-05-25] MEDS ORDERED: Enoxaparin 40 mg Syringe SC SCH (09:00)
[2017-05-25] MEDS ORDERED: HYDROCHLOROTHIAZIDE PO SCH (09:00)
[2017-05-25] MEDS ORDERED: levoFLOXacin 750 mg in D5W 150 ML BAG IVPB SCH (09:00)
[2017-05-25] MEDS ORDERED: Insulin Detemir 100 Units/ml Inj SC SCH ×2 (09:00→22:00)
[2017-05-25] MEDS ORDERED: VALSARTAN PO SCH (09:00)
--- NOTE | 2017-05-25 10:24 | RAD ---
HISTORY: sob fever COMPARISON: No prior. TECHNIQUE: Chest PA and lateral FINDINGS: LUNGS: No active pulmonary disease. PLEURA: No significant pleural effusion identified. No pneumothorax apparent. CARDIOVASCULAR: Normal. OSSEOUS STRUCTURES: No significant abnormalities. VISUALIZED UPPER ABDOMEN: Normal. OTHER FINDINGS: None. IMPRESSION: No active disease.
[2017-05-25 11:38] VITALS: BP 133/75; PULSE 70; RESP 16; O2SAT 96
--- NOTE | 2017-05-25 16:11 | CP.PCM.DIS ---
Provider - Provider Date of Admission: 05/25/17 00:45 Attending physician: Mehul Han MD Primary care physician: Dr. Hubbard Time Spent in preparation of Discharge (in minutes): 20 Hospital Course - Lab Results Lab Results: Most Recent Lab Values WBC 9.9 K/uL (4.8-10.8) 05/25/17 07:24 RBC 3.52 Mil/uL (4.40-5.90) L 05/25/17 07:24 Hgb 10.2 g/dL (12.0-18.0) L 05/25/17 07:24 Hct 29.3 % (35.0-51.0) L 05/25/17 07:24 MCV 83.2 fl (80.0-94.0) 05/25/17 07:24 MCH 28.9 pg (27.0-31.0) 05/25/17 07:24 MCHC 34.7 g/dL (33.0-37.0) 05/25/17 07:24 RDW 14.9 % (11.5-14.5) H 05/25/17 07:24 Plt Count 331 K/uL (130-400) 05/25/17 07:24 MPV 8.0 fl (7.2-11.7) 05/24/17 23:54 Neut % (Auto) 78.2 % (50.0-75.0) H 05/24/17 23:54 Lymph % (Auto) 9.3 % (20.0-40.0) L 05/24/17 23:54 [place] % (Auto) 8.3 % (0.0-10.0) 05/24/17 23:54 Eos % (Auto) 3.1 % (0.0-4.0) 05/24/17 23:54 Baso % (Auto) 1.1 % (0.0-2.0) 05/24/17 23:54 Neut # (Auto) 9.7 K/uL (1.8-7.0) H 05/24/17 23:54 Lymph # (Auto) 1.1 K/uL (1.0-4.3) 05/24/17 23:54 [place] # (Auto) 1.0 K/uL (0.0-0.8) H 02/17/18 23:54 Eos # (Auto) 0.4 K/uL (0.0-0.7) 05/24/17 23:54 Baso # (Auto) 0.1 K/uL (0.0-0.2) 05/24/17 23:54 Neutrophils % (Manual) 78 % (42-75) H 05/24/17 23:54 Lymphocytes % (Manual) 10 % (20-50) L 05/24/17 23:54 Monocytes % (Manual) 10 % (0-10) 05/24/17 23:54 Basophils % (Manual) 2 % (0-2) 05/24/17 23:54 Platelet Estimate Normal (NORMAL) 05/24/17 23:54 Hypochromasia (manual) Slight 05/24/17 23:54 PT 11.6 Seconds (9.8-13.1) 05/24/17 23:54 INR 1.0 (0.9-1.2) 05/24/17 23:54 APTT 31.2 Seconds (25.6-37.1) 05/24/17 23:54 pO2 36 mm/Hg (30-55) 05/24/17 00:07 VBG pH 7.39 (7.32-7.43) 05/24/17 00:07 VBG pCO2 35 mmHg (40-60) L 05/24/17 00:07 VBG HCO3 21.7 mmol/L 05/24/17 00:07 VBG Total CO2 22.3 mmol/L (22-28) 05/24/17 00:07 VBG O2 Sat (Calc) 79.4 % (40-65) H 05/24/17 00:07 VBG Base Excess -3.1 mmol/L (0.0-2.0) L 05/24/17 00:07 VBG Potassium 3.9 mmol/L (3.6-5.2) 05/24/17 00:07 Sodium 132.0 mmol/L (132-148) 05/24/17 00:07 Chloride 101.0 mmol/L (98-107) 05/24/17 00:07 Glucose 233 mg/dL (75-110) H 05/24/17 00:07 Lactate 0.9 mmol/L (0.7-2.1) 05/24/17 00:07 FiO2 21.0 % 05/24/17 00:07 Sodium 137 mmol/l (132-148) 05/25/17 07:24 Potassium 3.8 MMOL/L (3.6-5.0) 05/25/17 07:24 Chloride 103 mmol/L (98-107) 05/25/17 07:24 Carbon Dioxide 21 mmol/L (22-30) L 05/25/17 07:24 Anion Gap 17 (10-20) 05/25/17 07:24 BUN 22 mg/dl (9-20) H 05/25/17 07:24 Creatinine 1.3 mg/dl (0.8-1.5) 05/25/17 07:24 Est GFR ( Amer) > 60 05/25/17 07:24 Est GFR (Non-Af Amer) 56 05/25/17 07:24 POC Glucose (mg/dL) 149 mg/dL (65-110) H 05/25/17 11:53 Random Glucose 182 mg/dL (75-110) H 05/25/17 07:24 Calcium 8.6 mg/dL (8.4-10.2) 05/25/17 07:24 Phosphorus 2.8 mg/dl (2.5-4.5) 05/24/17 23:54 Magnesium 1.7 MG/DL (1.6-2.3) 05/24/17 23:54 Total Bilirubin 0.6 mg/dl (0.2-1.3) 05/24/17 23:54 AST 28 U/L (17-59) 05/24/17 23:54 ALT 35 U/L (21-72) 05/24/17 23:54 Alkaline Phosphatase 119 U/L (38-126) 05/24/17 23:54 Troponin I 0.0900 ng/mL (0.00-0.120) 05/25/17 12:03 NT-Pro-B Natriuret Pep 3440 pg/ml (0-900) H 05/24/17 23:54 Total Protein 7.3 G/DL (6.3-8.2) 05/24/17 23:54 Albumin 3.8 g/dL (3.5-5.0) 05/24/17 23:54 Globulin 3.6 gm/dL (2.2-3.9) 05/24/17 23:54 Albumin/Globulin Ratio 1.1 (1.0-2.1) 05/24/17 23:54 Venous Blood Potassium 3.9 mmol/L (3.6-5.2) 05/24/17 00:07 Influenza Typ A,B (EIA) Negative for flu a/b (NEGATIVE) 05/24/17 23:54 - Hospital Course Hospital Course: 61 yo M with PMhx/o HTN, DM, CAD ( 7 coronary stents), PVD ( 2 stents legs), HLD, Heart attack x 2, discharged 17 days ago for left toe amputation presented to ED c/o sudden SOB started started 30 minutes while he was sleeping. Patient reports similar events for the last 3 nights (PND). He also reported stopping his diuretics and valsartan because was urinating frequently.He alos gives ghistory of URI symptoms like, runny nose, nasal congestion and chest tightness. He denies fever, wheezing, SOB during the day, n ,v,abd pain, diarrhea, dysuria, hematuria, myalgia, chills, headache, dizziness. Patient reports been able to walk only 1 block and gets SOB. Reports + Sick contact sister with cold symptoms On ED room patient able to talk full sentences, not in respiratory distress, breathing room air 93%, noted with fever 100.8. CXR showed no active disease PROBNP was elevated 3440, influenza test was negative He was given lasix IV , placed on O2 Via NC and placed under observation in telemetry Trop x 3 were negative and EKg showed no acute ST-T wave cjhnages patient showed co]=linically improved , feeling better with noSOB , no chest pain Counselled patint on compliance with medications , (diuretics, valsartan , diabetes treatment) and low salt diet Recommended to follow up with his power crane operator Dr. Burger in his office foir outpatient echo and follow up Will discharge patient home on stable conditions. Dx 1.Acute CHF exacerbation most likely due to medication non compliance most likely systolic dysfunction ( last Echo 2014 showed EF 20-25 % with global hypokinesis) Clinically improved after diuresis trop x3 negative Follow up with his cradiologist echo as outpatientcontinue ASa, Plavix, statin , valsartan , HCTZ lasix 2. Pneumonia ruled out -no active disease on CXR URI -- Tmax 100.8 , only 1 reading in ER. WBC was 12 k and normalized to normal 9 k with no antibiotics CXr showed no infiltrate symptomatic relief with tylenol 3. CAD Continue ASA, Plavix , Statin ,BP control low salt diet 4.DM2 uncontrolled patient not very compliant with diet and medications resume his insulin regiment upon discharge and follow upw ith PMD 5. HTN / dyslipidemia cont home medications 6. PVD with stents on ASA, statin, plavix 7. Left foot s/p hallux amputation with chanel in place healing well following with podiatry ( last visit follow up 2 days ago) s/p debridement 17 days ago , received antibiotics. was treated with 6 weeks IV antibiotics dfor osteomyelitis 8. Chronic anemia Hgb 10 , stable 9.Diabetic neuropathy on gabapentin Discharge Exam - Head Exam Head Exam: ATRAUMATIC, NORMOCEPHALIC - Eye Exam Eye Exam: EOMI, Normal appearance, PERRL Pupil Exam: NORMAL ACCOMODATION - ENT Exam ENT Exam: Mucous Membranes Moist, Normal Exam - Neck Exam Neck exam: Full Rom, Normal Inspection - Respiratory Exam Respiratory Exam: Clear to PA & Lateral, NORMAL BREATHING PATTERN. absent: Rhonchi, Wheezes, Respiratory Distress - Cardiovascular Exam Cardiovascular Exam: REGULAR RHYTHM, +S1, +S2 - GI/Abdominal Exam GI & Abdominal Exam: Normal Bowel Sounds, Soft. absent: Distended, Guarding, Rebound, Tenderness - Rectal Exam Rectal Exam: Deferred - Extremities Exam Extremities exam: pedal edema Additional comments: left foot hallux amputation with chanel in place , healing well warm to touch, pulses present no edema - Back Exam Back exam: NORMAL INSPECTION - Neurological Exam Neurological exam: Alert, CN II-XII Intact, Reflexes Normal - Psychiatric Exam Psychiatric exam: Normal Affect - Skin Skin Exam: Dry, Pallor, Warm Discharge Plan - Discharge Medications Prescriptions: Furosemide [Lasix] 20 mg PO DAILY #30 tablet - Follow Up Plan Condition: GOOD Disposition: HOME/ ROUTINE Patient education suggested?: Yes Instructions: Heart Failure (DC) Referrals: Dontrell Hubbard MD [Staff Provider] -
--- NOTE | 2017-05-26 09:09 | CARD ---
APPROVED REPORT EKG Measurement Heart [id number] <Conclusion> Normal sinus rhythm Left axis deviation Right bundle branch block Abnormal ECG
== END 2017-05-25 13:49 | disposition home or self-care (01) ==
LOC: H.ER 22:31 → H.ERHOLD 05-25 00:45 → INTOOBSV 05-25 00:45
PROVIDERS: ADMIT Internal Medicine; ATTEND Internal Medicine
DX: I11.0 Hypertensive heart disease with heart failure (principal); D64.9 Anemia, unspecified; E11.40 Type 2 diabetes mellitus with diabetic neuropathy, unspecified; E11.51 Type 2 diabetes mellitus with diabetic peripheral angiopathy without gangrene; E11.65 Type 2 diabetes mellitus with hyperglycemia; E78.00 Pure hypercholesterolemia, unspecified; E78.5 Hyperlipidemia, unspecified; I25.10 Atherosclerotic heart disease of native coronary artery without angina pectoris; I50.23 Acute on chronic systolic (congestive) heart failure; J06.9 Acute upper respiratory infection, unspecified; J44.9 Chronic obstructive pulmonary disease, unspecified; Z79.02 Long term (current) use of antithrombotics/antiplatelets; Z79.82 Long term (current) use of aspirin; Z87.891 Personal history of nicotine dependence; Z91.14 Patient's other noncompliance with medication regimen; Z95.5 Presence of coronary angioplasty implant and graft; E11.621 Type 2 diabetes mellitus with foot ulcer; L97.529 Non-pressure chronic ulcer of other part of left foot with unspecified severity; Z89.422 Acquired absence of other left toe(s)
CPT/HCPCS: 71046; 80048; 80053; 82803; 82948; 83735; 83880; 84100; 84484; 85025; 85027; 85610; 85730; 87040; 87804; 93005; 96372; 96374; 99285; G0378; J1650; J1940

== ENCOUNTER 2018-05-16 10:58 | Emergency (ER) | payer MEDICARE ==
[2018-05-16 10:58] VITALS: BMI 34.4
[2018-05-16 11:06] VITALS: RESP 18
[2018-05-16 12:26] LABS: URINE BACTERIA RARE (<OCC); URINE BILIRUBIN NEGATIVE (NEGATIVE); URINE CLARITY SLIGHTY-CLOUDY (Clear); URINE COLOR YELLOW (YELLOW); URINE GLUCOSE (UA) NEG (NEGATIVE); URINE LEUKOCYTE ESTERASE SMALL Leu/uL (Negative); URINE PROTEIN 100 mg/dL (NEGATIVE); URINE UROBILINOGEN 0.2-1.0 mg/dL (0.2-1.0)
[2018-05-16 12:27] LABS: URINE BLOOD SMALL (NEGATIVE)
[2018-05-16 12:28] LABS: BASO # 0.2 K/uL (0.0-0.2); BASO % 1.2 % (0.0-2.0); EOS # 0.1 K/uL (0.0-0.7); EOS % 1.2 % (0.0-4.0); HEMOGLOBIN 8.7 g/dL (12.0-18.0); LYMPH # 1.3 K/uL (1.0-4.3); LYMPH % 10.1 % (20.0-40.0); MEAN CORPUSCULAR HGB CONC 33.3 g/dL (33.0-37.0); MEAN PLATELET VOLUME 8.2 fl (7.2-11.7); MONO # 1.1 K/uL (0.0-0.8); MONO % 8.4 % (0.0-10.0); NEUT % 79.1 % (50.0-75.0); NRBC % 0.1 % (0.0-0.0); RBC 2.99 Mil/uL (4.40-5.90); RED CELL DISTRIBUTION WIDTH 14.4 % (11.5-14.5); WHITE BLOOD COUNT 12.6 K/uL (4.8-10.8)
[2018-05-16 12:36] LABS: ALB/GLOB RATIO 1.1 (1.0-2.1); ALBUMIN 3.7 g/dL (3.5-5.0); CALCIUM 8.3 mg/dL (8.4-10.2)
[2018-05-16] MEDS ORDERED: Sodium Chloride 0.9% 1,000 ML IV ONE (12:43)
[2018-05-16] MEDS ORDERED: cefTRIAXone (Rocephin) 1 gm Inj ONE (13:00)
--- NOTE | 2018-05-16 14:04 | ED PDOC ---
HPI: Male Pain Time Seen by Provider: 05/16/18 11:43 Chief Complaint (Nursing): Male Genitourinary Chief Complaint (Provider): Male History Per: Patient History/Exam Limitations: no limitations Onset/Duration Of Symptoms: Days (three), Waxing/Waning Current Symptoms Are (Timing): Better Severity: Mild (Pt presents to the ED complaining of three days of dysuria and difficulty urinating generally; pt is passing urine and is not in a retentive situation; pt is afebrile and presents with no other urinary issues) Past Medical History Reviewed: Historical Data, Nursing Documentation, Vital Signs Vital Signs: Last Vital Signs Temp 97.5 F L 05/16/18 11:06 Pulse 76 05/16/18 11:06 Resp 18 05/16/18 11:06 BP 131/70 05/16/18 11:06 Pulse Ox 100 05/16/18 11:06 - Medical History PMH: CAD, COPD (per old chart but pt denies), Diabetes, HTN, Hypercholesterolemia, Peripheral Edema Denies: HIV, Chronic Kidney Disease - Surgical History Surgical History: Coronary Stent (x7) - Family History Family History: States: Hypertension - Home Medications Home Medications: Ambulatory Orders Medication Instructions Recorded Aspirin 81 mg PO DAILY 05/06/17 Clopidogrel [Plavix] 75 mg PO DAILY 05/06/17 Insulin Aspart, Recombinant 10 unit SC QAM 05/06/17 [Novolog] Insulin Glargine, Recombina 20 unit SC QPM 05/06/17 [Lantus] Valsartan/Hydrochlorothiazide 1 tab PO DAILY 05/06/17 [Diovan Hct 320-12.5 mg Tab] amLODIPine [Norvasc] 5 mg PO DAILY 05/06/17 oxyCODONE/Acetaminophen [Percocet 1 tab PO Q12H PRN 05/06/17 5/325 mg Tab] Atorvastatin [Lipitor] 40 mg PO HS #30 tab 05/25/17 Furosemide [Lasix] 20 mg PO DAILY #30 tablet 05/25/17 Cephalexin [cephalexin] 500 mg PO QID #40 cap 05/16/18 Tamsulosin HCl [Flomax] 0.4 mg PO DAILY #30 cap.er.24h 05/16/18 - Allergies Allergies/Adverse Reactions: Allergies Allergy/AdvReac Type Severity Reaction Status Date / Time No Known Allergies Allergy Verified 05/24/17 22:46 Review of Systems ROS Statement: Except As Marked, All Systems Reviewed And Found Negative Gastrointestinal: Positive for: Abdominal Pain Genitourinary Male: Positive for: Dysuria, Penile Pain Physical Exam - Reviewed Nursing Documentation Reviewed: Yes Vital Signs Reviewed: Yes - Physical Exam Appears: Positive for: Well, Non-toxic, No Acute Distress Head Exam: Positive for: ATRAUMATIC, NORMAL INSPECTION Skin: Positive for: Normal Color, Warm, Dry. Negative for: Diaphoresis, Pallor, Rash Eye Exam: Positive for: Normal appearance. Negative for: Nystagmus, Periorbital swelling, Periorbital tenderness Neck: Positive for: Normal, Painless ROM, Supple. Negative for: Decreased ROM Cardiovascular/Chest: Positive for: Regular Rate, Rhythm. Negative for: Edema Respiratory: Positive for: Normal Breath Sounds Pulses-Carotid (L): 2+ Pulses-Carotid (R): 2+ Pulses-Radial (L): 2+ Pulses-Radial (R): 2+ Gastrointestinal/Abdominal: Positive for: Normal Exam, Bowel Sounds (active in all four quadrans), Soft. Negative for: Tenderness, Distended, Rebound, Asicites Male Genital Exam: Positive for: normal genitalia. Negative for: bleeding, epididymal tenderness, erythema, inguinal tenderness, lesions, scrotum tenderness (R), scrotum tenderness (L), testicular tenderness (R), testicular tenderness (L), urethral discharge Back: Positive for: Normal Inspection. Negative for: L CVA Tenderness, R CVA Tenderness - Laboratory Results Result Diagrams: 05/16/18 12:22 05/16/18 12:22 Lab Results: Total Bilirubin 0.3 mg/dl (0.2-1.3) 05/16/18 12:22 AST 30 U/L (17-59) 05/16/18 12:22 ALT 21 U/L (21-72) D 05/16/18 12:22 Alkaline Phosphatase 91 U/L (38-126) 05/16/18 12:22 Total Protein 7.1 G/DL (6.3-8.2) 05/16/18 12:22 Albumin 3.7 g/dL (3.5-5.0) 05/16/18 12:22 Globulin 3.4 gm/dL (2.2-3.9) 05/16/18 12:22 Albumin/Globulin Ratio 1.1 (1.0-2.1) 05/16/18 12:22 Urine Color Yellow (YELLOW) 05/16/18 12:05 Urine Clarity Slighty-cloudy (Clear) 05/16/18 12:05 Urine pH 6.0 (5.0-8.0) 05/16/18 12:05 Ur Specific [place] 1.009 (1.003-1.030) 05/16/18 12:05 Urine Protein 100 mg/dL (NEGATIVE) 05/16/18 12:05 Urine Glucose (UA) Neg mg/dL (NEGATIVE) 05/16/18 12:05 Urine Ketones Negative mg/dL (NEGATIVE) 05/16/18 12:05 Urine Blood Small (NEGATIVE) 05/16/18 12:05 Urine Nitrate Negative (NEGATIVE) 05/16/18 12:05 Urine Bilirubin Negative (NEGATIVE) 05/16/18 12:05 Urine Urobilinogen 0.2-1.0 mg/dL (0.2-1.0) 05/16/18 12:05 Ur Leukocyte Esterase Small [place]/uL (Negative) 05/16/18 12:05 Urine RBC (Auto) 6 /hpf (0-3) H 05/16/18 12:05 Urine Microscopic WBC 18 /hpf (0-5) H 05/16/18 12:05 Urine Bacteria Rare (<OCC) 05/16/18 12:05 - ECG O2 Sat by Pulse Oximetry: 100 Medical Decision Making Medical Decision Making: R/O UTI over enlarged prostate Disposition - Clinical Impression Clinical Impression: Urinary tract infection, Hematuria - Patient ED Disposition Is Patient to be Admitted: No Doctor Will See Patient In The: Office Counseled Patient/Family Regarding: Studies Performed, Diagnosis, Need For Followup, Rx Given - Disposition Referrals: Dontrell Hubbard MD [Primary Care Provider] - Chris Magallon MD [Medical Doctor] - Disposition: Routine/Home Disposition Time: 14:08 Condition: STABLE Additional Instructions: follow up with urology in 48-96 hours follow up with your primary care physician in 48-72 hours Prescriptions: Cephalexin [cephalexin] 500 mg PO QID #40 cap Tamsulosin HCl [Flomax] 0.4 mg PO DAILY #30 cap.er.24h Instructions: Urinary Tract Infections in Adults, Blood in the Urine (Hematur ia) in Adults, Urinary Tract Infection, Adult (DC)
[2018-05-16 14:36] VITALS: BP 144/73; PULSE 80; TEMP 98.4; O2SAT 98
== END 2018-05-16 14:38 | disposition home or self-care (01) ==
LOC: H.ER 10:58 → SUPCPDRO 10:58 → H.ER 14:38
DX: N39.0 Urinary tract infection, site not specified (principal); R31.9 Hematuria, unspecified; E11.9 Type 2 diabetes mellitus without complications; E78.00 Pure hypercholesterolemia, unspecified; I10 Essential (primary) hypertension; I25.10 Atherosclerotic heart disease of native coronary artery without angina pectoris; Z79.4 Long term (current) use of insulin; Z95.5 Presence of coronary angioplasty implant and graft
CPT/HCPCS: 80053; 81003; 85025; 87086; 96365; 99284; J0696; J7030